=== PATIENT | male | born 1955 | race Caucasian/White ===

== ENCOUNTER → 2017-03-03 | Day surgery (SDC) | payer BC ==
[2017-02-20 13:37] VITALS: Ht 175.3 cm; Wt 111.4 kg
[~2017-03-03] VITALS: Ht 175.3 cm; Wt 111.4 kg
[~2017-03-03] MED LIST: ASPCH81X PO; COEN100C7 PO; HYDR25TA4 PO; LEVO150T PO; LIDOCAINE HCL 2% 2 ML VIAL (20MG/ML) ONE; MIDAZOLAM HCL 1 MG/ML 2ML VIAL ONE; PANT40TA PO; PROPOFOL IV EMULSION 10 MG/ML 20 ML VIAL IV ONE
--- NOTE | 2017-03-03 13:01 | Endo History and Physical ---
History & Physical Date of Service: Mar 03, 2017. Chief Complaint: screening Referring Physician: Dr. Nasir Kirby History of Present Illness For Colonoscopy Past Medical History Arthritis, Pulmonary Emboli, Anxiety, Reflux, Hypertension, Thrombophlebitis, Thyroid Disease Past Surgical History Hx Cardiac Surgery: No Hx Internal Defibrillator: No Hx Pacemaker: No Hx Abdominal Surgery: Yes (UMBILICAL HERNIA) Hx of Implantable Prosthesis: No Hx Post-Op Nausea and Vomiting: No Hx Cancer Surgery: No Hx Thoracic Surgery: No Hx Orthopedic: Yes (RT/LEFT JET) Hx Urinary Tract Surgery: No Family History Colon CA Social History Smoking Status: Never Smoker Hx Substance Use: No Hx Alcohol Use: Yes (OCCASIONALLY) Allergies Coded Allergies: Lisinopril (Verified Allergy, Unknown, Cough, 02/20/17) Current Medications Reported Home Medications Medications Dose Route/Sig Max Daily Dose Days Date Category Coq10 (Coenzyme Q10 (Ubidecarenone)) 100 Mg Cap 1 Cap PO QPM 02/20/17 Reported Hctz (Hydrochlorothiazide) 25 Mg Tab 25 Mg PO QPM 02/20/17 Reported Aspirin Chewable (Aspirin) 81 Mg Chew 81 Mg PO QAM 10/01/14 Reported Synthroid (Levothyroxine Sodium) 150 Mcg Tab 150 Mcg PO QAM 10/01/14 Reported Protonix (Pantoprazole Sodium) 40 Mg Tab 40 Mg PO QPM 10/18/13 Reported Vital Signs Weight (Kilograms): 111.36 Height (Feet): 5 Height (Inches): 9 Date Time Temp Pulse Resp B/P (MAP) Pulse Ox O2 Delivery O2 Flow Rate FiO2 03/03/17 12:26 36.5 88 20 146/74 (98) 96 Room Air Physical Exam General Appearance: WD/WN Respiratory/Chest: Respiratory effort: no dyspnea Cardiovascular: Heart Auscultation: RRR Abdomen: Inspection & Palpation: soft Assessment and Plan For screening colonoscopy
--- NOTE | 2017-03-03 13:25 | Discharge Instructions ---
Endoscopy Patient Instructions Date / Procedure(s) Performed Mar 03, 2017. Colonoscopy Allergy Information Coded Allergies: Lisinopril (Verified Allergy, Unknown, Cough, 02/20/17) Discharge Date / Findings Mar 03, 2017. Hemorrhoids, diverticulosis, lipoma Medication Instructions Stopped Medication(s): has not been taking ASA Restart Stopped Medication(s): resume meds Reported Home Medications Medications Dose Route/Sig Max Daily Dose Days Date Category Coq10 (Coenzyme Q10 (Ubidecarenone)) 100 Mg Cap 1 Cap PO QPM 02/20/17 Reported Hctz (Hydrochlorothiazide) 25 Mg Tab 25 Mg PO QPM 02/20/17 Reported Aspirin Chewable (Aspirin) 81 Mg Chew 81 Mg PO QAM 10/01/14 Reported Synthroid (Levothyroxine Sodium) 150 Mcg Tab 150 Mcg PO QAM 10/01/14 Reported Protonix (Pantoprazole Sodium) 40 Mg Tab 40 Mg PO QPM 10/18/13 Reported Provider Instructions Activity Restrictions - No exercising or heavy lifting for 24 hours. - Do not drink alcohol the day of the procedure. - Do not drive a car or operate machinery until the day after the procedure. - Do not make any important decisions or sign important papers in 24 hours after the procedure. Following Day: - Return to full activity which may include returning to work/school. Diet Start your diet with liquids and light foods (jello, soup, juice, toast). Then eat your usual diet if not nauseated. Treatment For Common After Affects For mild abdominal pain, bloating, or excessive gas: - Rest - Eat lightly - Lie on right side Follow-Up Information Follow-up with Dr. Nasir Kirby as scheduled Anesthesia Information What You Should Know You have had a procedure that required some medicine to reduce anxiety and discomfort. This treatment is called moderate sedation. After receiving the treatment, you may be sleepy, but you will be able to breathe on your own. The effects of the treatment may last for several hours. Follow these instructions along with Activity/Diet recommendations noted above: * Do NOT do anything where dizziness or clumsiness would be dangerous. * Rest quietly at home today, then you can be up and about tomorrow. * Have a responsible person stay with you the rest of today. * You may have had an I.V. today. If so, you may take the dressing off later today. Recommendations Call your doctor if: * Trouble breathing * Continuous vomiting for more than 24 hours * Temperature above 101 degrees * Severe abdominal pain or bloating * Pain not relieved by pain medicine ordered * There is increased drainage or redness from any incision * A large amount of rectal bleeding greater than 2-3 tablespoons. (If you had a polyp/s removed or have hemorrhoids, a small amount of blood - from the rectum is to be expected.) * You have any unanswered questions or concerns. IN THE EVENT OF A SERIOUS EMERGENCY, GO TO THE NEAREST EMERGENCY ROOM Your discharge instructions were prepared by provider Jerald Tong. Patient Instructions Signature Page Benton Chaidez Patient (or Guardian) Signature/Date: I have read and understand the instructions given to me by my caregivers. Caregiver/RN/Doctor Signature/Date: The above-named patient and/or guardian has received patient instructions on this date. + Original Patient Signature Page (only) stays with chart. Please make copy for patient.
--- NOTE | 2017-03-03 13:28 | GI REPORT ---
Procedure Date: 03/03/2017 1:00 PM Procedure: Colonoscopy Indications: Screening for colorectal malignant neoplasm Medicines: Midazolam 2 mg IV, Propofol total dose 210 mg IV, Lidocaine 40 mg IV Complications: No immediate complications. Estimated Blood Loss: Estimated blood loss: none. Procedure: Pre-Anesthesia Assessment: - Prior to the procedure, a History and Physical was performed, and patient medications, allergies and sensitivities were reviewed. The patient's tolerance of previous anesthesia was reviewed. - The risks and benefits of the procedure and the sedation options and risks were discussed with the patient. All questions were answered and informed consent was obtained. After I obtained informed consent, the scope was passed under direct vision. Throughout the procedure, the patient's blood pressure, pulse, and oxygen saturations were monitored continuously. The scope was introduced through the anus and advanced to the terminal ileum. The colonoscopy was performed without difficulty. The patient tolerated the procedure well. The quality of the bowel preparation was good. Findings: Multiple diverticula were found in the sigmoid colon and in the ascending colon. Non-bleeding internal hemorrhoids were found during endoscopy. The hemorrhoids were mild. There was a small lipoma, 12 mm in diameter, in the sigmoid colon. The terminal ileum appeared normal. Impression: - Diverticulosis in the sigmoid colon and in the ascending colon. - Non-bleeding internal hemorrhoids. - Small lipoma in the sigmoid colon. - The examined portion of the ileum was normal. - No specimens collected. Recommendation: - Discharge patient to home (ambulatory). - Continue present medications. - Repeat colonoscopy in 10 years for screening purposes. - Return to primary care physician PRN. Jerald Tong M.D. Jerald Tong MD 03/03/2017 1:28:22 PM This report has been signed electronically. Note Initiated On: 03/03/2017 1:00 PM I attest to the content of the Intraoperative Record and orders documented therein, exceptions below
[2017-03-03 13:58] VITALS: BP 124/73; PULSE 75; O2SAT 96
--- NOTE | 2017-03-03 14:05 | Anesthesiology Progress Note ---
Anesthesia Post Op Note Date & Time Mar 03, 2017 at 14:04 Vital Signs Pain Intensity: 0 Vital Signs Past 12 Hours Date Time Temp Pulse Resp B/P (MAP) Pulse Ox O2 Delivery O2 Flow Rate FiO2 03/03/17 13:58 75 20 124/73 (90) 96 Room Air 03/03/17 13:42 75 20 120/80 (93) 96 Room Air 03/03/17 13:27 88 20 102/55 (71) 96 Room Air 03/03/17 12:26 36.5 88 20 146/74 (98) 96 Room Air Notes Mental Status: alert / awake / arousable, participated in evaluation Pt Amnestic to Procedure: Yes Nausea / Vomiting: adequately controlled Pain: adequately controlled Airway Patency, RR, SpO2: stable & adequate BP & HR: stable & adequate Hydration State: stable & adequate Anesthetic Complications: no major complications apparent
== END | disposition home or self-care (01) ==
LOC: C.GI 11:56
PROVIDERS: ATTEND Internal Medicine Gastroenterology
DX: Z12.11 Encounter for screening for malignant neoplasm of colon (principal); D17.5 Benign lipomatous neoplasm of intra-abdominal organs; K57.30 Diverticulosis of large intestine without perforation or abscess without bleeding; K64.8 Other hemorrhoids; M19.90 Unspecified osteoarthritis, unspecified site; K21.9 Gastro-esophageal reflux disease without esophagitis; I10 Essential (primary) hypertension; Z86.72 Personal history of thrombophlebitis; Z96.641 Presence of right artificial hip joint

== ENCOUNTER → 2017-07-10 | Outpatient (CLI) | payer BC ==
[~2017-07-10] MED LIST changes: -LIDOCAINE HCL 2% 2 ML VIAL (20MG/ML) ONE; -MIDAZOLAM HCL 1 MG/ML 2ML VIAL ONE; -PROPOFOL IV EMULSION 10 MG/ML 20 ML VIAL IV ONE
--- NOTE | 2017-07-10 09:36 | DIAGNOSTIC IMAGING REPORT ---
MRI LEFT KNEE NO CONTRAST CLINICAL HISTORY: Left knee pain COMPARISON STUDY: Conventional radiographic study dated 07-11 FINDINGS: Imaging was performed in the sagittal, coronal, and axial planes. There are no areas of marrow edema to indicate occult fracture or bone bruise. The quadriceps and patellar tendons appear intact. The medial and lateral collateral ligaments appear intact. The posterior cruciate ligament appears intact. There is extensive mucoid degeneration of the anterior cruciate ligament with associated ganglion cyst. The patellar retinacular structures appear intact. There is a small joint effusion. Linear grade 2 signal changes are present within the posterior horn the medial meniscus. No meniscal tears are visualized. There is mild medial joint compartment chondrosis. There is mild chondromalacia patella. IMPRESSION: 1. No evidence of meniscal tear 2. Extensive mucoid degeneration of the anterior cruciate ligament with associated ganglion cysts 3. Mild medial joint compartment chondrosis. Mild chondromalacia patella. Electronically signed by: Cornell Covington M.D. 07/10/2017 9:35 AM Dictated Date/Time: 07/10/2017 9:29 AM
== END | disposition home or self-care (01) ==
LOC: C.MRIBC 08:37
PROVIDERS: ATTEND Orthopaedic Surgery
DX: M23.8X2 Other internal derangements of left knee (principal); M11.262 Other chondrocalcinosis, left knee; M22.42 Chondromalacia patellae, left knee

== ENCOUNTER 2018-01-02 11:21 | Inpatient (IN) | payer BC, OTHER ==
[~2018-01-02] VITALS: Ht 175.3 cm; Wt 123.9 kg
[2018-01-02] MEDS ORDERED: METHYLPREDNISOLONE 125 MG VIAL IV STA (11:38)
[2018-01-02] MEDS ORDERED: PIPERACILLIN/TAZOBACTAM 4.5 GM/100ML D5W IV STA (11:38)
[2018-01-02] MEDS ORDERED: SODIUM CHLORIDE 0.9% 1000ML 500 ML IV ONE (11:38)
[2018-01-02] MEDS ORDERED: ALBUT/IPRATROP 3MG/0.5MG NEB 3 ML VIAL INH STA (11:38)
[2018-01-02] MEDS ORDERED: ACETAMINOPHEN 500 MG TAB PO STA (11:38)
[2018-01-02 11:58] LABS: BASO % 0.3 %; BASO ABS # 0.02 K/uL (0-0.2); EOS % 1.9 %; EOS ABS # 0.15 K/uL (0-0.5); HEMATOCRIT 41.4 % (42-52); HEMOGLOBIN 14.2 g/dL (14.0-18.0); IG# 0.01 K/uL (0.00-0.02); LYMPH ABS # 0.71 K/uL (1.2-3.4); MEAN CELL VOLUME 88.7 fL (80-100); MEAN CORPUSCULAR HEMOGLOBIN 30.4 pg (25-34); MEAN CORPUSCULAR HGB CONC 34.3 g/dl (32-36); MEAN PLATELET VOLUME 10.3 fL (7.4-10.4); MONO % 7.4 %; MONO ABS # 0.58 K/uL (0.11-0.59); NEUT % 81.3 %; NEUT ABS # 6.38 K/uL (1.4-6.5); PLATELET COUNT 195 K/uL (130-400); RED CELL DISTRIBUTION WIDTH CV 13.4 % (11.5-14.5); RED CELL DISTRIBUTION WIDTH SD 43.5 fL (36.4-46.3); WHITE BLOOD COUNT 7.85 K/uL (4.8-10.8)
--- NOTE | 2018-01-02 12:04 | DIAGNOSTIC IMAGING REPORT ---
CHEST ONE VIEW PORTABLE CLINICAL HISTORY: 62 years-old Male presenting with Sepsis. TECHNIQUE: Portable upright AP view of the chest was obtained. COMPARISON: 12/23/2013. FINDINGS: Atherosclerosis of aortic arch. Cardiac silhouette enlarged. Mild pulmonary vascular prominence. Lungs and pleural spaces clear. Degenerative changes of the thoracic spine. Upper abdomen normal. IMPRESSION: 1. Cardiomegaly. No other convincing evidence of acute cardiopulmonary disease. Electronically signed by: Dillan Woodruff M.D. 01/02/2018 12:02 PM Dictated Date/Time: 01/02/2018 12:00 PM
[2018-01-02 12:08] LABS: PTT PATIENT 26.7 SECONDS (21.0-31.0)
[2018-01-02 12:16] LABS: ALBUMIN 3.6 gm/dl (3.4-5.0); CALCIUM 8.5 mg/dl (8.5-10.1); CREATININE 0.99 mg/dl (0.60-1.40); POTASSIUM 3.4 mmol/L (3.5-5.1)
[2018-01-02 12:19] LABS: TOTAL PROTEIN 7.3 gm/dl (6.4-8.2)
[2018-01-02] MEDS ORDERED: MAGNESIUM SULFATE 1GM / D5W 1 GM BAG IV STA (12:22)
[2018-01-02] MEDS ORDERED: OPTIRAY 320 IV PRN (12:30)
--- NOTE | 2018-01-02 13:30 | DIAGNOSTIC IMAGING REPORT ---
(CHEST FOR PE) ANGIO WITH CT DOSE: 606.70 mGy.cm HISTORY: Chest pain dyspnea TECHNIQUE: Multiaxial CT images of the chest were performed following the intravenous administration of contrast to evaluate the pulmonary arteries. Maximal intensity projection images were also obtained. A dose lowering technique was utilized adhering to the principles of ALARA. COMPARISON STUDY: None. FINDINGS: Mild atherosclerotic change thoracic aorta. No evidence for aneurysm or dissection. The pulmonary arterial vasculature enhances appropriately. Lungs are generally clear. Small parenchymal infiltrate left base. IMPRESSION: No evidence for pulmonary embolus. Small parenchymal infiltrate left base The above report was generated using voice recognition software. It may contain grammatical, syntax or spelling errors. Electronically signed by: Antonio Amaya M.D. 01/02/2018 1:29 PM Dictated Date/Time: 01/02/2018 1:24 PM
[2018-01-02 13:33] LABS: INFLUENZA A PCR Neg for Influ A (NEG); INFLUENZA B PCR Neg for Influ B (NEG)
--- NOTE | 2018-01-02 14:06 | EMERGENCY ROOM VISIT NOTE ---
History Report prepared by Pasquale: Felicitas Willams Under the Supervision of: Dr. Bj Gudino M.D. First contact with patient: 11:35 Chief Complaint: ABNORMAL LABS Stated Complaint: LOW BLOOD LEVEL, FEVER History of Present Illness The patient is a 62 year old male who presents to the Emergency Room with complaints of worsening shortness of breath starting this morning. The patient states that he had a severe cold at the beginning of November and eventually went to the doctors for it. He states that they gave him inhalers and he got better. He notes that his cough never went away, but he stopped using the inhaler when he felt better. He notes that his cough is sometimes productive, but is mostly dry. 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 The patient states while working yesterday around noon he started to get a scratchy throat. He reports that after work he went to play golf, but became much worse. He states that he could not stop coughing and that he was extremely short of breath. He reports that last night he took Codeine for his cough and took his inhalers this morning. He reports that the inhaler seemed to help some, but he was still coughing. The patient states that this morning he also felt lethargic and flushed, but thought it was from coughing so much. He reports that he decided to go to the [facility]. He states that his oxygen was low and they gave him a nebulizer. The patient reports that this did not help his oxygen saturation and he was sent to the ED. The patient denies diaphoresis, lightheadedness, knowing he had a fever, and being given anything for his fever thus far. Source of History: patient Onset: this morning Position: other (global) Quality: other (shortness of breath) Timing: worsening Modifying Factors (Relieving): other (inhaler) Associated Symptoms: + fevers, + sorethroat (scratchy), + cough, No diaphoresis Note: The patient complains fo feeling lethargic and flushed. The patient denies being lightheaded. Review of Systems See HPI for pertinent positives & negatives. A total of 10 systems reviewed and were otherwise negative. Past Medical & Surgical Medical Problems: (1) Acute respiratory failure with hypoxia (2) Bilateral hip surgeries (3) Community acquired pneumonia (4) DVT (deep venous thrombosis) (5) GERD (gastroesophageal reflux disease) (6) Glucose intolerance (7) Hyperlipidemia (8) Hypertension (9) Hypothyroidism (10) PE (pulmonary embolism) (11) Umbilical hernia Family History Patient reports no known family medical history. Social History Smoking Status: Never Smoker Marital Status: Housing Status: lives with significant other Occupation Status: employed Current/Historical Medications Scheduled Aspirin (Aspirin Chewable), 81 MG PO QAM Coenzyme Q10 (Ubidecarenone) (Coq10), 1 CAP PO QPM Hydrochlorothiazide (Hctz), 25 MG PO QPM Levothyroxine Sodium (Synthroid), 150 MCG PO QAM Pantoprazole (Protonix), 40 MG PO QPM Allergies Coded Allergies: Lisinopril (Verified Allergy, Unknown, Cough, 02/20/17) Physical Exam Vital Signs Date Time Temp Pulse Resp B/P (MAP) Pulse Ox O2 Delivery O2 Flow Rate FiO2 01/02/18 15:07 102 111/71 92 Nasal Cannula 2.0 01/02/18 13:32 37.4 107 21 120/70 93 Nasal Cannula 2.0 01/02/18 12:51 112 22 89 01/02/18 12:51 112 22 89 01/02/18 12:36 112 20 99 01/02/18 12:36 112 20 99 01/02/18 12:28 113 01/02/18 11:35 95 Nasal Cannula 2.0 01/02/18 11:35 88 Room Air 01/02/18 11:24 38.3 122 18 164/87 88 Room Air Physical Exam GENERAL: Patient is in no acute distress. HEENT: No acute trauma, normocephalic atraumatic, mucous membranes moist, no nasal congestion, no scleral icterus. NECK: No stridor, no adenopathy, no meningismus, trachea is midline. LUNGS: Scattered wheezing. A few crackles at both bases primarily on the right. Equal breath sounds. Breath sounds are somewhat diminished bilaterally. No respiratory distress. HEART: Mildly tachycardic with regular rhythm. No murmurs. ABDOMEN: Soft, nontender, bowel sounds positive, no hernias, no peritonitis. EXTREMITIES: No cyanosis, full range of motion of all the joints without pain or difficulty, no signs for acute trauma. Moderate bilateral pedal edema. NEUROLOGIC: Oriented x 3, no acute motor or sensory deficits, no focal weakness. SKIN: No rash, no jaundice, no diaphoresis. Medical Decision & Procedures ER Provider Diagnostic Interpretation: Radiology results as stated below per my review and radiologist interpretation: CHEST ONE VIEW PORTABLE CLINICAL HISTORY: 62 years-old Male presenting with Sepsis. TECHNIQUE: Portable upright AP view of the chest was obtained. COMPARISON: 12/23/2013. FINDINGS: Atherosclerosis of aortic arch. Cardiac silhouette enlarged. Mild pulmonary vascular prominence. Lungs and pleural spaces clear. Degenerative changes of the thoracic spine. Upper abdomen normal. IMPRESSION: 1. Cardiomegaly. No other convincing evidence of acute cardiopulmonary disease. Electronically signed by: Dillan Woodruff M.D. 01/02/2018 12:02 PM Dictated Date/Time: 01/02/2018 12:00 PM (CHEST FOR PE) ANGIO WITH CT DOSE: 606.70 mGy.cm HISTORY: Chest pain dyspnea TECHNIQUE: Multiaxial CT images of the chest were performed following the intravenous administration of contrast to evaluate the pulmonary arteries. Maximal intensity projection images were also obtained. A dose lowering technique was utilized adhering to the principles of ALARA. COMPARISON STUDY: None. FINDINGS: Mild atherosclerotic change thoracic aorta. No evidence for aneurysm or dissection. The pulmonary arterial vasculature enhances appropriately. Lungs are generally clear. Small parenchymal infiltrate left base. IMPRESSION: No evidence for pulmonary embolus. Small parenchymal infiltrate left base The above report was generated using voice recognition software. It may contain grammatical, syntax or spelling errors. Electronically signed by: Antonio Amaya M.D. 01/02/2018 1:29 PM Dictated Date/Time: 01/02/2018 1:24 PM Laboratory Results 01/02/18 11:39 Red Blood Count 4.67, Mean Corpuscular Volume 88.7, Mean Corpuscular Hemoglobin 30.4, Mean Corpuscular Hemoglobin Concent 34.3, Mean Platelet Volume 10.3, Neutrophils (%) (Auto) 81.3, Lymphocytes (%) (Auto) 9.0, Monocytes (%) (Auto) 7.4, Eosinophils (%) (Auto) 1.9, Basophils (%) (Auto) 0.3, Neutrophils # (Auto) 6.38, Lymphocytes # (Auto) 0.71, Monocytes # (Auto) 0.58, Eosinophils # (Auto) 0.15, Basophils # (Auto) 0.02 01/02/18 11:39 Test 01/02/18 11:39 01/02/18 11:57 01/02/18 12:10 01/02/18 13:00 White Blood Count 7.85 K/uL (4.8-10.8) Red Blood Count 4.67 M/uL (4.7-6.1) Hemoglobin 14.2 g/dL (14.0-18.0) Hematocrit 41.4 % (42-52) Mean Corpuscular Volume 88.7 fL (80-100) Mean Corpuscular Hemoglobin 30.4 pg (25-34) Mean Corpuscular Hemoglobin Concent 34.3 g/dl (32-36) Platelet Count 195 K/uL (130-400) Mean Platelet Volume 10.3 fL (7.4-10.4) Neutrophils (%) (Auto) 81.3 % Lymphocytes (%) (Auto) 9.0 % Monocytes (%) (Auto) 7.4 % Eosinophils (%) (Auto) 1.9 % Basophils (%) (Auto) 0.3 % Neutrophils # (Auto) 6.38 K/uL (1.4-6.5) Lymphocytes # (Auto) 0.71 K/uL (1.2-3.4) Monocytes # (Auto) 0.58 K/uL (0.11-0.59) Eosinophils # (Auto) 0.15 K/uL (0-0.5) Basophils # (Auto) 0.02 K/uL (0-0.2) RDW Standard Deviation 43.5 fL (36.4-46.3) RDW Coefficient of Variation 13.4 % (11.5-14.5) Immature Granulocyte % (Auto) 0.1 % Immature Granulocyte # (Auto) 0.01 K/uL (0.00-0.02) Prothrombin Time 10.9 SECONDS (9.0-12.0) Prothromb Time International Ratio 1.0 (0.9-1.1) Activated Partial Thromboplast Time 26.7 SECONDS (21.0-31.0) Partial Thromboplastin Ratio 1.0 Anion Gap 6.0 mmol/L (3-11) Est Creatinine Clear Calc Drug Dose 102.0 ml/min Estimated GFR () 94.9 Estimated GFR (Non- 81.9 BUN/Creatinine Ratio 14.7 (10-20) Calcium Level 8.5 mg/dl (8.5-10.1) Magnesium Level 1.6 mg/dl (1.8-2.4) Total Bilirubin 0.5 mg/dl (0.2-1) Aspartate Amino Transf (AST/SGOT) 30 U/L (15-37) Alanine Aminotransferase (ALT/SGPT) 46 U/L (12-78) Alkaline Phosphatase 75 U/L (45-117) Total Protein 7.3 gm/dl (6.4-8.2) Albumin 3.6 gm/dl (3.4-5.0) Globulin 3.7 gm/dl (2.5-4.0) Albumin/Globulin Ratio 1.0 (0.9-2) Bedside Lactic Acid Venous 1.61 mmol/L (0.90-1.70) Influenza Type A (RT-PCR) Neg for Influ A (NEG) Influenza Type B (RT-PCR) Neg for Influ B (NEG) Urine Color YELLOW Urine Appearance CLEAR (CLEAR) Urine pH >= 9.0 (4.5-7.5) Urine Specific [place] 1.022 (1.000-1.030) Urine Protein NEG (NEG) Urine Glucose (UA) NEG (NEG) Urine Ketones NEG (NEG) Urine Occult Blood NEG (NEG) Urine Nitrite NEG (NEG) Urine Bilirubin NEG (NEG) Urine Urobilinogen NEG (NEG) Urine Leukocyte Esterase NEG (NEG) Urine WBC (Auto) 0 /hpf (0-5) Urine RBC (Auto) 0-4 /hpf (0-4) Urine Hyaline Casts (Auto) 0 /lpf (0-5) Urine Epithelial Cells (Auto) 0-5 /lpf (0-5) Urine Bacteria (Auto) NEG (NEG) Laboratory results reviewed by me. Medications Administered Medications (Trade) Dose Ordered Sig/Tiffany Route Start Time Stop Time Status Last Admin Dose Admin Sodium Chloride 500 ml @ 999 mls/hr Q31M ONCE IV 01/02/18 11:38 01/02/18 12:08 DC 01/02/18 11:54 999 MLS/HR Piperacillin Sod/ Tazobactam Sod (Zosyn Iv) 4.5 gm ONE STAT IV 01/02/18 11:38 01/02/18 11:41 DC 01/02/18 12:05 4.5 GM Acetaminophen (Tylenol Tab) 1,000 mg NOW STAT PO 01/02/18 11:38 01/02/18 11:41 DC 01/02/18 12:03 1,000 MG Albuterol/ Ipratropium (Duoneb) 3 ml NOW STAT INH 01/02/18 11:38 01/02/18 11:41 DC 01/02/18 12:02 3 ML Methylprednisolone Sodium Succinate (Solu-Medrol IV) 40 mg STK-MED ONCE .ROUTE 01/02/18 11:55 01/02/18 11:56 DC 01/02/18 12:02 80 MG Magnesium Sulfate (Magnesium Sulfate 1gm / D5W) 2 gm NOW STAT IV 01/02/18 12:22 01/02/18 12:23 DC 01/02/18 13:27 2 GM Guaifenesin (Mucinex Contr Rel Tab) 1,200 mg 1424 ONCE PO 01/02/18 14:24 01/02/18 14:42 DC 01/02/18 15:05 1,200 MG ECG Per My Interpretation Indication: SOB/dyspnea Rate (beats per minute): 114 Rhythm: sinus tachycardia Findings: no ectopy, other (no ST elevation, no PVCs) ED Course 1136: The patient was evaluated in room C9. A complete history and physical exam was performed. 1138: Ordered Solu-Medrol IV 80 mg IV, Duoneb 3 ml INH, Tylenol Tab 1000 mg PO, Zosyn Iv 4.5 gm IV, NSS 500 ml @ 999 mls/hr IV. 1222: Ordered Magnesium Sulfate 2 gm IV. 1225: I updated the patient that he is going for a CT of his chest. 1333:I reevaluated the patient and he is doing well. I updated him on his test results. 1349: I discussed the patient's case with Dr. Dai ESCOBAR Hospitalist. The patient will be evaluated for further management. Medical Decision Differential diagnoses include pneumonia, bronchitis, CHF, pneumothorax, anemia , influenza, [place], sepsis, PE. There is no leukocytosis or concerning anemia. Magnesium was low. No kidney failure or hepatitis. There is no coagulopathy. EKG shows a sinus tachycardia , no acute ischemia. Cardiac enzyme testing 1 is not consistent with acute cardiac injury. Chest x-ray does not show obvious pneumonia, no pneumothorax or mediastinal widening. Blood cultures are pending. Influenza testing was negative. Chest CT does not show PE, a left sided lower lung pneumonia was seen. Patient received a dose of IV Zosyn as antibiotic coverage. He received oral Tylenol for his fever. He received IV saline, IV Solu-Medrol. He was given IV magnesium. The patient presents with shortness of breath and fever. He was hypoxic. He is doing better with treatment and with supplemental O2. He will require a hospital stay for further care. I did speak with the patient and case management. The on-call hospitalist was counseled. I do believe the pneumonia has caused all of his symptoms. Medication Reconcilliation Current Medication List: was personally reviewed by me Blood Pressure Screening Patient's blood pressure: Elevated blood pressure Will be further monitored by the hospitalist. Consults Time Called: 1343 Consulting Physician: Dr. Dai ESCOBAR Hospitalist Returned Call: [phone] I discussed the patient's case with Dr. Dai ESCOBAR Hospitalist. The patient will be evaluated for further management. Impression Primary Impression: Pneumonia Additional Impressions: Hypoxia Failure of outpatient treatment Scribe Attestation The scribe's documentation has been prepared under my direction and personally reviewed by me in its entirety. I confirm that the note above accurately reflects all work, treatment, procedures, and medical decision making performed by me. Departure Information Dispostion Being Evaluated By Hospitalist Referrals Nasir Maldonado M.D. (PCP) Patient Instructions [facility] Problem Qualifiers
[2018-01-02] MEDS ORDERED: GUAIFENESIN 600 MG TABCR PO ONE (14:24)
[2018-01-02] MEDS ORDERED: ALUMINUM/MAGNESIUM/SIMETH (MAALOX MAX) 30 ML UDC PO PRN (14:30)
[2018-01-02] MEDS ORDERED: ONDANSETRON INJ 2 MG/ML 2 ML VIAL IV PRN (14:30)
[2018-01-02] MEDS ORDERED: HYDROCODONE/HOMATROPINE SYRUP 5MG/1.5MG 5ML UDP PO PRN (14:30)
[2018-01-02] MEDS ORDERED: ACETAMINOPHEN 325 MG TAB PO PRN (14:30)
[2018-01-02] MEDS ORDERED: MAGNESIUM HYDROXIDE SUSP 30 ML UDC PO PRN (14:30)
[2018-01-02] MEDS ORDERED: POLYETHYLENE (MIRALAX) 17 GM PACK PO PRN (14:30)
[2018-01-02] MEDS ORDERED: ALBUT/IPRATROP 3MG/0.5MG NEB 3 ML VIAL INH PRN (14:45)
--- NOTE | 2018-01-02 14:48 | History and Physical ---
History & Physical Date & Time of Service: January 02, 2018 at 14:34 Chief Complaint: Low Blood Level, Fever Primary Care Physician: Nasir Maldonado M.D. History of Present Illness Source: patient Mr. Chaidez is a 62 y/o male with PMHx of HTN, Hypothyroidism, GERD, and Provoked PE/DVT (2012) who presents to the ED from his PCP due to hypoxia and SOB. Patient states he has had a cough that has wax and waned in intensity for approx. 6 weeks now. He states he initially had more of a productive cough but now it is mostly dry. He was ultimately prescribed inhalers that did seem to help his symptoms but did not resolve is cough. 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 Know known lung disease or allergies. He states all of his co-workers are sick but none seem to have this long like him. He did have a scratching throat yesterday but no direct sore throat. Today he felt fatigued and warm like he was running a fever. He was seen at the [facility] today and was told his pulse ox was low and received a nebulizer. He states the nebulizer helped his cough but did not improve his oxygenation and was sent to the ED. With treatment in the ED, patient reports his cough is improving but still satting in the high 80s with 2 L NC. Past Medical/Surgical History 1. HTN 2. Provoked DVT/PE (2012) - Traumatic Injury to Legs 3. Hypothyroidism 4. GERD 5. S/P B/L Hip Arthroplasty 6. S/P Inguinal Hernia Repair Family History Patient reports no known family medical history. Social History Smoking Status: Never Smoker Smokeless Tobacco Use: No Alcohol Use: socially Drug Use: none Marital Status: Occupational Status: employed Immunizations History of Influenza Vaccine: No History of Tetanus Vaccine?: No History of Pneumococcal: No History of Hepatitis B Vaccine: No Allergies Coded Allergies: Lisinopril (Verified Allergy, Unknown, Cough, 02/20/17) Home Medications Scheduled Aspirin (Aspirin Chewable), 81 MG PO QAM Coenzyme Q10 (Ubidecarenone) (Coq10), 1 CAP PO QPM Hydrochlorothiazide (Hctz), 25 MG PO QPM Levothyroxine Sodium (Synthroid), 150 MCG PO QAM Pantoprazole (Protonix), 40 MG PO QPM Review of Systems Constitutional: + fever, + fatigue, No chills ENT: + nasal symptoms, No sore throat Respiratory: + cough, + wheezing, + shortness of breath, No sputum Cardiovascular: No chest pain Abdomen: No pain, No nausea, No vomiting, No diarrhea, No constipation Musculoskeletal: + swelling (chronic b/l lower extremities - baseline), No calf pain Genitourinary - Male: No dysuria Hematologic / Lymphatic: No abnormal bleeding/bruising Integumentary: No rash Allergic / Immunologic: No environmental allergies, No seasonal allergies Physical Exam Vital Signs Date Time Temp Pulse Resp B/P (MAP) Pulse Ox O2 Delivery O2 Flow Rate FiO2 01/02/18 13:32 37.4 107 21 120/70 93 Nasal Cannula 2.0 01/02/18 12:51 112 22 89 01/02/18 12:51 112 22 89 01/02/18 12:36 112 20 99 01/02/18 12:36 112 20 99 01/02/18 12:28 113 01/02/18 11:35 95 Nasal Cannula 2.0 01/02/18 11:35 88 Room Air 01/02/18 11:24 38.3 122 18 164/87 88 Room Air General Appearance: WD/WN, no apparent distress Head: normocephalic, atraumatic Eyes: sclerae normal ENT: hearing grossly normal, pharynx normal Neck: supple, no JVD, trachea midline Respiratory/Chest: no respiratory distress, no accessory muscle use, + decreased breath sounds (bases b/l with minimal air flow), + wheezing (upper lung monsalve b/l) Cardiovascular: regular rate, rhythm, no gallop, no murmur Abdomen/GI: normal bowel sounds, non tender, soft Back: normal inspection Extremities/Musculoskelatal: + swelling (trace pitting edema b/l lower extremities) Neurologic/Psych: alert, oriented x 3 Skin: normal color, warm/dry Diagnostics Laboratory Results Results Past 24 Hours Test 01/02/18 11:39 01/02/18 11:57 01/02/18 12:10 01/02/18 13:00 Range/Units White Blood Count 7.85 4.8-10.8 K/uL Red Blood Count 4.67 4.7-6.1 M/uL Hemoglobin 14.2 14.0-18.0 g/dL Hematocrit 41.4 42-52 % Mean Corpuscular Volume 88.7 80-100 fL Mean Corpuscular Hemoglobin 30.4 25-34 pg Mean Corpuscular Hemoglobin Concent 34.3 32-36 g/dl Platelet Count 195 130-400 K/uL Mean Platelet Volume 10.3 7.4-10.4 fL Neutrophils (%) (Auto) 81.3 % Lymphocytes (%) (Auto) 9.0 % Monocytes (%) (Auto) 7.4 % Eosinophils (%) (Auto) 1.9 % Basophils (%) (Auto) 0.3 % Neutrophils # (Auto) 6.38 1.4-6.5 K/uL Lymphocytes # (Auto) 0.71 1.2-3.4 K/uL Monocytes # (Auto) 0.58 0.11-0.59 K/uL Eosinophils # (Auto) 0.15 0-0.5 K/uL Basophils # (Auto) 0.02 0-0.2 K/uL RDW Standard Deviation 43.5 36.4-46.3 fL RDW Coefficient of Variation 13.4 11.5-14.5 % Immature Granulocyte % (Auto) 0.1 % Immature Granulocyte # (Auto) 0.01 0.00-0.02 K/uL Prothrombin Time 10.9 9.0-12.0 SECONDS Prothromb Time International Ratio 1.0 0.9-1.1 Activated Partial Thromboplast Time 26.7 21.0-31.0 SECONDS Partial Thromboplastin Ratio 1.0 Sodium Level 140 136-145 mmol/L Potassium Level 3.4 3.5-5.1 mmol/L Chloride Level 105 98-107 mmol/L Carbon Dioxide Level 29 21-32 mmol/L Anion Gap 6.0 3-11 mmol/L Blood Urea Nitrogen 15 7-18 mg/dl Creatinine 0.99 0.60-1.40 mg/dl Est Creatinine Clear Calc Drug Dose 102.0 ml/min Estimated GFR () 94.9 Estimated GFR (Non- 81.9 BUN/Creatinine Ratio 14.7 10-20 Random Glucose 112 70-99 mg/dl Calcium Level 8.5 8.5-10.1 mg/dl Magnesium Level 1.6 1.8-2.4 mg/dl Total Bilirubin 0.5 0.2-1 mg/dl Aspartate Amino Transf (AST/SGOT) 30 15-37 U/L Alanine Aminotransferase (ALT/SGPT) 46 12-78 U/L Alkaline Phosphatase 75 45-117 U/L Total Protein 7.3 6.4-8.2 gm/dl Albumin 3.6 3.4-5.0 gm/dl Globulin 3.7 2.5-4.0 gm/dl Albumin/Globulin Ratio 1.0 0.9-2 Bedside Lactic Acid Venous 1.61 0.90-1.70 mmol/L Influenza Type A (RT-PCR) Neg for Influ A NEG Influenza Type B (RT-PCR) Neg for Influ B NEG Urine Color YELLOW Urine Appearance CLEAR CLEAR Urine pH >= 9.0 4.5-7.5 Urine Specific [place] 1.022 1.000-1.030 Urine Protein NEG NEG Urine Glucose (UA) NEG NEG Urine Ketones NEG NEG Urine Occult Blood NEG NEG Urine Nitrite NEG NEG Urine Bilirubin NEG NEG Urine Urobilinogen NEG NEG Urine Leukocyte Esterase NEG NEG Urine WBC (Auto) 0 0-5 /hpf Urine RBC (Auto) 0-4 0-4 /hpf Urine Hyaline Casts (Auto) 0 0-5 /lpf Urine Epithelial Cells (Auto) 0-5 0-5 /lpf Urine Bacteria (Auto) NEG NEG Microbiology Results 01/02/18 Blood Culture, Received Pending 01/02/18 Blood Culture, Received Pending Diagnostic Radiology (CHEST FOR PE) ANGIO WITH FINDINGS: Mild atherosclerotic change thoracic aorta. No evidence for aneurysm or dissection. The pulmonary arterial vasculature enhances appropriately. Lungs are generally clear. Small parenchymal infiltrate left base. IMPRESSION: No evidence for pulmonary embolus. Small parenchymal infiltrate left base EKG Sinus tachycardia Otherwise normal ECG When compared with ECG of 02-OCT-2014 07:59, Vent. rate has increased BY 39 BPM Impression Assessment and Plan Mr. Chaidez is a 62 y/o male with PMHx of HTN, Hypothyroidism, GERD, and Provoked PE/DVT (2012) who presents to the ED from his PCP due to hypoxia and SOB. Patient states he has had a cough that has wax and waned in intensity for approx. 6 weeks now Acute Hypoxic Respiratory Failure 2/2 Community-Acquired Pneumonia with Possible Bronchitis: - No underlying pulmonary conditions to his knowledge; L base infiltrate on CT - no evidence of PE - Levaquin 750 mg IV daily - Methylprednisolone 40 mg IV BID - Duonebs; Mucinex BID; Hycodan PRN; Wean O2 as tolerated HTN: - HCTZ 25 mg daily Hypothyroidism: - Synthroid 150 mcg daily GERD: - Protonix 40 mg daily DVT Prophylaxis: Lovenox Disposition: No home needs anticipated Resident Physician Supervision Note: I was present with Rosalia GUAN during the history and exam. I discussed the case with the PA and agree with the findings and plan as documented in the note. Any exceptions or clarifications are listed here: 62 y/o M Hx HTN, hypothyroidism, GERD, provoked PE/DVT (2012) - presents with a few weeks of coughing and progressive SOB. He became dyspneic while playing golf. He has had respiratory symptoms for a few weeks which were treated as viral. The pt was hypoxic in the mid 80s on arrival to the ER. A CT chest was obtained and revealed LLL infiltrates. He is admitted with hypoxia and PNM therefore. OE AAO x 3 S1,2 R Cannot appreciate crackles or wheezing NT, ND No CCE P: Abx, 02, nebs - recheck walking oximetry daily to allow for DC when possible Cont Synthroid Cont HCTZ as prescribed Documented By: Lloyd Acevedo Resuscitation Status VTE Prophylaxis Will order VTE Prophylaxis: Yes Social Service Consult None Apply
[2018-01-02] MEDS: ALBUT/IPRATROP 3MG/0.5MG NEB 3 ML VIAL INH SCH ×2 (17:38→19:44)
[2018-01-02 18:10] VITALS: O2SAT 92; Ht 175.3 cm; Wt 123.9 kg
[2018-01-02 18:11] VITALS: BP 128/62; PULSE 103; TEMP 36.7; O2SAT 92
[2018-01-02 18:30] VITALS: O2SAT 92
[2018-01-02] MEDS: LEVOFLOXACIN / D5W 750 MG in PREMIXED IN D5W 150 ML IV SCH (18:42)
[2018-01-02 19:45] VITALS: PULSE 102; O2SAT 93
[2018-01-02] MEDS: ENOXAPARIN 40 MG/0.4 ML SYR SQ SCH (20:28)
[2018-01-02] MEDS: METHYLPREDNISOLONE IV 40 MG in SYRINGE 0 ML IV SCH (20:29)
[2018-01-02] MEDS: HYDROCHLOROTHIAZIDE 25 MG TAB PO SCH (20:29)
[2018-01-02] MEDS: PANTOprazole SOD 40 MG TAB PO SCH (20:29)
[2018-01-03] VITALS (9 sets, daily range): BP systolic 115–151; BP diastolic 65–83; PULSE 81–129; TEMP 36.7–36.8; O2SAT 92–95
[2018-01-03] MEDS: LEVOTHYROXINE 150 MCG TAB PO SCH (06:51)
[2018-01-03] MEDS: ALBUT/IPRATROP 3MG/0.5MG NEB 3 ML VIAL INH SCH ×4 (07:05→19:18)
[2018-01-03 07:30] LABS: HEMATOCRIT 41.4 % (42-52); HEMOGLOBIN 13.8 g/dL (14.0-18.0); MEAN CORPUSCULAR HEMOGLOBIN 29.7 pg (25-34); MEAN CORPUSCULAR HGB CONC 33.3 g/dl (32-36); MEAN PLATELET VOLUME 10.2 fL (7.4-10.4); PLATELET COUNT 183 K/uL (130-400); RED CELL DISTRIBUTION WIDTH CV 13.7 % (11.5-14.5); RED CELL DISTRIBUTION WIDTH SD 44.8 fL (36.4-46.3); WHITE BLOOD COUNT 12.39 K/uL (4.8-10.8)
[2018-01-03 07:53] LABS: CALCIUM 8.6 mg/dl (8.5-10.1); CREATININE 1.06 mg/dl (0.60-1.40); POTASSIUM 3.9 mmol/L (3.5-5.1)
[2018-01-03] MEDS: GUAIFENESIN 600 MG TABCR PO SCH ×2 (08:46→21:10)
[2018-01-03] MEDS: METHYLPREDNISOLONE IV 40 MG in SYRINGE 0 ML IV SCH ×2 (08:46→17:34)
[2018-01-03] MEDS: ASPIRIN 81 MG CHEW PO SCH (08:46)
[2018-01-03] MEDS ORDERED: GUAIFENESIN/CODEINE 100MG/10MG 5ML UDC PO PRN (15:00)
[2018-01-03] MEDS ORDERED: BENZONATATE 100MG CAP PO PRN (15:00)
[2018-01-03] MEDS: LEVOFLOXACIN / D5W 750 MG in PREMIXED IN D5W 150 ML IV SCH (17:34)
[2018-01-03] MEDS: PANTOprazole SOD 40 MG TAB PO SCH (21:09)
[2018-01-03] MEDS: HYDROCHLOROTHIAZIDE 25 MG TAB PO SCH (21:10)
[2018-01-03] MEDS: ENOXAPARIN 40 MG/0.4 ML SYR SQ SCH (21:10)
[2018-01-04] VITALS: O2SAT 94
[2018-01-04 00:26] VITALS: BP 163/98; PULSE 96; TEMP 36.7; O2SAT 93
[2018-01-04] MEDS: METHYLPREDNISOLONE IV 40 MG in SYRINGE 0 ML IV SCH ×2 (02:04→09:39)
[2018-01-04] MEDS: LEVOTHYROXINE 150 MCG TAB PO SCH (06:53)
[2018-01-04 07:02] LABS: HEMATOCRIT 42.8 % (42-52); HEMOGLOBIN 14.3 g/dL (14.0-18.0); MEAN CORPUSCULAR HEMOGLOBIN 29.7 pg (25-34); MEAN CORPUSCULAR HGB CONC 33.4 g/dl (32-36); MEAN PLATELET VOLUME 10.2 fL (7.4-10.4); PLATELET COUNT 224 K/uL (130-400); RED CELL DISTRIBUTION WIDTH SD 45.8 fL (36.4-46.3); WHITE BLOOD COUNT 14.85 K/uL (4.8-10.8)
[2018-01-04] MEDS: ALBUT/IPRATROP 3MG/0.5MG NEB 3 ML VIAL INH SCH (07:04)
[2018-01-04 07:06] VITALS: PULSE 89; O2SAT 93
[2018-01-04 07:16] VITALS: BP 178/81; PULSE 89; TEMP 36.5; O2SAT 93
[2018-01-04 07:22] LABS: CALCIUM 8.8 mg/dl (8.5-10.1); CREATININE 1.09 mg/dl (0.60-1.40); POTASSIUM 4.2 mmol/L (3.5-5.1)
--- NOTE | 2018-01-04 07:40 | Progress Note ---
Subjective Date of Service: January 03, 2018. Subjective Pt evaluation today including: conversation w/ patient, physical exam, chart review, lab review, review of studies (ct chest, cxr), review of inpatient medication list Pain: none PO Intake: normal, eating fine Voiding: no voiding problems still with considerable cough, congestion, wheezing, and mild dyspnea on exertion although he does feel a little better today no further fever/chills denies prior h/o chronic lung disease, asthma, or tobacco usage no recent travel Problem List Medical Problems: (1) Failure of outpatient treatment Status: Acute (2) Hypoxia Status: Acute (3) Pneumonia Status: Acute Review of Systems Constitutional: + fatigue, No fever, No chills Respiratory: + cough, + sputum, + wheezing, + shortness of breath, + dyspnea on exertion Cardiac: No chest pain, No orthopnea Abdomen: No pain Objective Vital Signs Date Time Temp Pulse Resp B/P (MAP) Pulse Ox O2 Delivery O2 Flow Rate FiO2 01/03/18 19:18 120 18 94 Room Air 01/03/18 16:01 36.8 129 22 148/74 (98) 93 Room Air 01/03/18 16:00 Room Air 01/03/18 14:51 118 18 94 Nasal Cannula 1.0 01/03/18 11:12 83 18 92 Nasal Cannula 1.0 01/03/18 08:10 93 Nasal Cannula 1.0 01/03/18 07:22 36.7 81 16 115/65 (82) 93 Nasal Cannula 2.0 01/03/18 07:07 83 18 94 Nasal Cannula 2.0 01/03/18 00:45 36.7 100 20 121/72 (88) 95 2.0 01/03/18 00:00 Nasal Cannula 2.0 Physical Exam General Appearance: no apparent distress, + obese ENT: pharynx normal Neck: no JVD Respiratory/Chest: no respiratory distress, no accessory muscle use, + crackles (left base), + wheezing (extensive) Cardiovascular: no gallop, + tachycardia, + systolic murmur (2/6 AYESHA LSB) Abdomen: normal bowel sounds, non tender, soft, no organomegaly Extremities: no pedal edema Neurologic/Psychiatric: alert, oriented x 3 Laboratory Results Last 24 Hours Test 01/03/18 07:22 White Blood Count 12.39 K/uL Red Blood Count 4.65 M/uL Hemoglobin 13.8 g/dL Hematocrit 41.4 % Mean Corpuscular Volume 89.0 fL Mean Corpuscular Hemoglobin 29.7 pg Mean Corpuscular Hemoglobin Concent 33.3 g/dl RDW Standard Deviation 44.8 fL RDW Coefficient of Variation 13.7 % Platelet Count 183 K/uL Mean Platelet Volume 10.2 fL Sodium Level 137 mmol/L Potassium Level 3.9 mmol/L Chloride Level 104 mmol/L Carbon Dioxide Level 26 mmol/L Anion Gap 7.0 mmol/L Blood Urea Nitrogen 18 mg/dl Creatinine 1.06 mg/dl Est Creatinine Clear Calc Drug Dose 95.2 ml/min Estimated GFR () 87.4 Estimated GFR (Non- 75.4 BUN/Creatinine Ratio 16.9 Random Glucose 148 mg/dl Calcium Level 8.6 mg/dl Magnesium Level 2.3 mg/dl Assessment and Plan 62yo male - 1. acute hypoxic resp failure 2nd to acute bronchitis + LLL pneumonia - slowly progressing. 2. LLL community-acquired pneumonia - levaquin; can convert to oral tomorrow. Day #2 of abx. 3. acute bronchitis - no significant improvement in wheezing, dyspnea, etc. Increase steroids to q8h intervals. Add incentive spirometry. Cont mucolytics, nebs, pulmonary toilet. 4. DVT proph - lovenox 40mg daily. 5. HTN - uncontrolled, likely due to steroids. If still high in am then adjust BP meds. 6. morbid obesity with BMI of 40 7. hypothyroidism - cont synthroid; patient is a [facility] patient and I don' t have access to outpatient records and thus his TSH. Will inquire w patient about this. Continued [facility] stay due to: multiple IV medications needed Discharge planning: home
[2018-01-04 07:52] VITALS: BP 152/92
[2018-01-04] MEDS: ASPIRIN 81 MG CHEW PO SCH (08:29)
[2018-01-04] MEDS: GUAIFENESIN 600 MG TABCR PO SCH (08:29)
[2018-01-04] MEDS: LACTOBACILLUS ACIDOPHILUS (FLORANEX) TAB PO SCH ×2 (08:29→10:43)
[2018-01-04] MEDS ORDERED: METOPROLOL TARTRATE 25 MG TAB PO ONE (08:45)
[2018-01-04] MEDS ORDERED: LVQ750 PO (09:51)
[2018-01-04] MEDS ORDERED: LCTX PO (09:51)
[2018-01-04] MEDS ORDERED: BENZ100C7 PO (09:51)
[2018-01-04] MEDS ORDERED: GFNSR600 PO (09:51)
[2018-01-04] MEDS ORDERED: LPR25 PO (09:51)
[2018-01-04] MEDS ORDERED: PRED10TA PO (09:51)
[2018-01-04] MEDS ORDERED: IPRA1AER2 INH (09:51)
[2018-01-04 09:54] VITALS: BP 152/92; PULSE 89; TEMP 36.5; O2SAT 93
[2018-01-04] MEDS ORDERED: POTA10CA28 PO (09:54)
--- NOTE | 2018-01-04 10:12 | Discharge Instructions ---
Discharge Instructions Date of Service January 04, 2018. Admission Reason for Admission: Left-sided pneumonia along with Acute Bronchitis Discharge Discharge Diagnosis / Problem: Bronchitis & Pneumonia - Both Improving Discharge Goals Goal(s): Improve disease control, Learn about illness, Diagnostic testing, Therapeutic intervention Activity Recommendations Activity Limitations: as noted below For the next 2-3 days (could be 3-4 days) would recommend that you "take it easy " - * avoid heavy exertional activities such as strenuous yard work, heavy indoor chores, etc * avoid going to the gym for a few days * light activities and light walks are fine * as you feel better you can gradually increase your activity level * you will have to use your best judgement when it comes to returning to work; when you can perform all of your normal job duties without fatigue, shortness of breath, etc you may return to work . Instructions / Follow-Up Instructions / Follow-Up From Dr. Briones - You were treated for a combination of bronchitis and left lower lobe pneumonia. You improved nicely with antibiotics, steroids (prednisone), nebulizer treatments, and cough suppressants. Your blood cultures were negative while here (that is, there was no evidence of infection in your blood stream). Please do the following - 1. Pneumonia - * take levaquin (levofloxacin) 750mg once daily for 4 days starting TOMORROW, * may take [id number] mucinex up to 1200mg twice a day as desired/needed for cough/mucous production * take combivent inhaler (we provided this to you at discharge) 1 puff 4 times a day for the next week or so * I would discontinue the inhaler that was given to you prior to admission * take lactinex (probiotics) three times a day for 1 week; hopefully this will prevent diarrhea from the levaquin antibiotic * I would recommend that you have a repeat chest x-ray in 1 month to ensure that all of the pneumonia is fully resolved 2. Bronchitis - this is inflammation and irritation of the bronchial tubes from infection. * take a prednisone taper starting TOMORROW, 01/05/18 * you will start with 5 tabs and taper down to 1 tab over several days; instructions will be on prescription bottle * take mucinex as above * take combivent inhaler as above * use your incentive spirometer frequently over the next few days * to suppress your cough you may continue on the cough syrup that was given to you prior to your hospital stay OR I faxed to your pharmacy a prescription for "tessalon pearles" * the tessalon can be used up to 3 times a day as desired/needed for cough 4. High blood pressure - * your blood pressures were high from the time of admission until the time of discharge * we have started you on metoprolol 25mg twice a day for your blood pressure * take your first dose TONIGHT * continue on your HCTZ (hydrochlorothiazide) once daily as previous 5. Low potassium - * your HCTZ diuretic water pill causes low potassium * please take a potassium supplement every day; this was faxed to your pharmacy for you * I would recommend that you take the potassium every day as long as you are on the HCTZ 6. Follow-up - see Dr. Maldonado or one of his associates within 3 days for a recheck. 7. Return to [facility] if - * you are experiencing worsening shortness of breath, chest pain, or chest tightness * you are having recurrent fevers over 100.5 degrees * you develop severe diarrhea * any other concerns Current Hospital Diet Patient's current hospital diet: Regular Diet Discharge Diet Recommended Diet: Regular Diet Procedures Procedures Performed: CAT scan of the lungs - NO evidence of blood clots. However, there was a left lower lobe pneumonia. Pending Studies Studies pending at discharge: no Medical Emergencies . Who to Call and When: Medical Emergencies: If at any time you feel your situation is an emergency, please call 911 immediately. . Non-Emergent Contact Non-Emergency issues call your: Primary Care Provider Call Non-Emergent contact if: temperature is above 100.5, you have any medication questions . . "Provider Documentation" section prepared by Chente Briones. .
[2018-01-04] MEDS ORDERED: LEVOFLOXACIN 750 MG TAB PO SCH (11:00)
[2018-01-04] MEDS ORDERED: IPRATROPIUM BROMIDE/ALBUTEROL respimat INH INH SCH (12:00)
--- NOTE | 2018-01-04 17:07 | Discharge Summary ---
Discharge Summary Date of Service January 04, 2018. Discharge Summary Admission Date: January 02, 2018 at 14:33 Discharge Date: January 04, 2018 Discharge Disposition: Home Principal Diagnosis: LLL community-acquired pneumonia + acute bronchitis Problems/Secondary Diagnoses: 1. acute hypoxic respiratory failure 2nd to LLL pneumonia/acute bronchitis - former resolved 2. uncontrolled HTN but improving 3. morbid obesity w/ BMI 40 4. hypothyroidism 5. hypokalemia - resolved 6. GERD 7. h/o DVT/PE 2012 Immunizations: Have You Had Influenza Vaccine: No History of Tetanus Vaccine?: No History of Pneumococcal: No History of Hepatitis B Vaccine: No Procedures: CT chest, PE protocol - IMPRESSION: No evidence for pulmonary embolus. Small parenchymal infiltrate left base. Medication Reconciliation New Medications: Ipratropium-Albuterol (Combivent Respimat) 1 Aer Aer 1 PUFFS INH QID, #1 INH 0 Refills Potassium Chloride (Micro-K Ext Rel) 10 Meq Capcr 10 MEQ PO DAILY, #30 CAP 5 Refills Prednisone (Prednisone) 10 Mg Tab 10 MG PO DIRECTED, #30 TAB 0 Refills start 01/05: take 5 tabs days 1/2, 4 tabs days 3/4, 3 tabs days 5/6, 2 tabs days 7/8, 1 tab days /. Take w food. Benzonatate (Benzonatate) 100 Mg Cap 100 MG PO Q8H PRN for Cough, #30 CAP 0 Refills Guaifenesin Ext Rel (Mucinex Ext Rel) 600 Mg Tabcr 1200 MG PO Q12, #30 TABS 0 Refills purchase [id number] Lactobacillus Acidophilus (Floranex) 1 Tab Tab 4 TAB PO TIDM for 7 Days, #84 TAB 0 Refills Levofloxacin (Levofloxacin) 750 Mg Tab 750 MG PO DAILY for 4 Days, #4 TAB 0 Refills start 01/05/18 Metoprolol Tartrate (Lopressor) 25 Mg Tab 25 MG PO BID, #60 TAB 1 Refill for high blood pressure Continued Medications: Aspirin (Aspirin Chewable) 81 Mg Chew 81 MG PO QAM, TAB Coenzyme Q10 (Ubidecarenone) (Coq10) 100 Mg Cap 1 CAP PO QPM Hydrochlorothiazide (Hctz) 25 Mg Tab 25 MG PO QPM, TAB Levothyroxine Sodium (Synthroid) 150 Mcg Tab 150 MCG PO QAM, TAB Pantoprazole (Protonix) 40 Mg Tab 40 MG PO QPM, TAB Referrals At Discharge Follow up Referrals: Family Practice Referral - Within 1 Week with Nasir Maldonado M.D. Discharge Exam Physical Exam: General Appearance: no apparent distress, + obese ENT: pharynx normal Neck: no JVD Respiratory/Chest: no respiratory distress, no accessory muscle use, + crackles (left base - mild), + wheezing (mild, end-exp), + pertinent finding ( good airation ) Cardiovascular: regular rate, rhythm, no gallop, + systolic murmur (1-2/6 AYESHA LLSB) Abdomen / GI: normal bowel sounds, non tender, soft, no organomegaly Extremities: no pedal edema Neurologic/Psychiatric: alert, oriented x 3 Skin: no rash Hospital Course HISTORY OF PRESENT ILLNESS: Mr. Chaidez is a 62 y/o male with PMHx of HTN, Hypothyroidism, GERD, and Provoked PE/DVT (2012) who presents to the ED from his PCP due to hypoxia and SOB. Patient states he has had a cough that has wax and waned in intensity for approx. 6 weeks now. He states he initially had more of a productive cough but now it is mostly dry. He was ultimately prescribed inhalers that did seem to help his symptoms but did not resolve is cough. 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 Know known lung disease or allergies. He states all of his co-workers are sick but none seem to have this long like him. He did have a scratching throat yesterday but no direct sore throat. Today he felt fatigued and warm like he was running a fever. He was seen at the [place] [facility] today and was told his pulse ox was low and received a nebulizer. He states the nebulizer helped his cough but did not improve his oxygenation and was sent to the ED. With treatment in the ED, patient reports his cough is improving but still satting in the high 80s with 2 L NC. HOSPITAL COURSE: The patient's acute hypoxic respiratory failure was secondary to acute bronchitis as well as LLL community-acquired pneumonia. The LLL pneumonia was unable to be seen on chest x-ray but was discovered on CTA chest. He was treated with a combination of IV steroids, IV antibiotics, scheduled nebulizer treatments, and pulmonary toilet. Oxygen was weaned off by hospital day #2, and all pulmonary symptoms improved by hospital day #3. With the exception of a fever that he had at the time of ER presentation he otherwise remained afebrile. Blood cultures remained negative during his stay. At discharge his O2 sats in room air were normal with walking. The following were recommended at hospital discharge - 1. prednisone taper for his acute bronchitis 2. combivent inhaler four times a day for his acute bronchitis 3. levaquin x 4 more days starting 01/05/18 for his LLL pneumonia 4. lactinex for GI prophylaxis 5. tessalon pearles as needed for cough 6. metoprolol 25mg twice a day for his HTN as his BPs were ALL elevated starting with his initial BPs in the emergency room 7. potassium supplementation due to chronic HCTZ use 8. repeat chest x-ray in about 4-6 weeks to ensure normal left lung field/no evidence of ongoing infiltrate He was advised to follow-up with Dr. Maldonado, his PCP, within 3 days of discharge. Total Time Spent: Greater than 30 minutes This includes examination of the patient, discharge planning, medication reconciliation, and communication with other providers. Discharge Instructions Please refer to the electronic Patient Visit Report (Discharge Instructions) for additional information. Follow-Up see Dr. Maldonado, PCP, within 3 days Additional Copies To Nasir Maldonado M.D.
[2018-01-04] MEDS ORDERED: METOPROLOL TARTRATE 25 MG TAB PO SCH (20:00)
== END 2018-01-04 11:04 | disposition home or self-care (01) | DRG 193 ==
LOC: C.EDB 11:22 → C.MS4W 14:33 → ENRESERV 14:55
PROVIDERS: ADMIT Internal Medicine; ATTEND Internal Medicine
DX: J18.1 Lobar pneumonia, unspecified organism (principal); J96.01 Acute respiratory failure with hypoxia; Z68.41 Body mass index [BMI] 40.0-44.9, adult; J20.9 Acute bronchitis, unspecified; E87.6 Hypokalemia; I10 Essential (primary) hypertension; E03.9 Hypothyroidism, unspecified; K21.9 Gastro-esophageal reflux disease without esophagitis; E66.01 Morbid (severe) obesity due to excess calories; Z86.711 Personal history of pulmonary embolism; Z86.718 Personal history of other venous thrombosis and embolism; Z79.82 Long term (current) use of aspirin; Z79.899 Other long term (current) drug therapy; Z88.8 Allergy status to other drugs, medicaments and biological substances

== ENCOUNTER 2024-10-02 07:09 | Inpatient (IN) ==
--- NOTE | 2024-10-02 08:18 | XRay Report ---
XR chest 1V not portable HISTORY: 69 years-old Male Chest pain, nonspecific COMPARISON: 07/21/2024 TECHNIQUE: AP view the chest FINDINGS: Cardiac silhouette is normal in size. Atherosclerosis of the aorta. No pneumothorax, pleural effusion . Chronic interstitial coarsening. Bones appear grossly intact. IMPRESSION: No acute process. ACT 112: Negative or not required by law. The above report was generated using voice recognition software. It may contain grammatical, syntax o r spelling errors. Electronically signed by: Scotty Pinedo M.D. 10/02/2024 8:17 AM
[2024-10-02] MEDS: OPTIRAY 320 125ml IV ONE (09:05)
[2024-10-02 09:12] LABS: iSTAT Creatinine 1.2 mg/dl (0.6-1.3); iSTAT Hemoglobin 15.6 g/dl (14.0-18.0); iSTAT Ionized Calcium 1.21 mmol/l (1.12-1.32); iSTAT Potassium 4.2 mmol/L (3.3-5.0)
[2024-10-02 09:37] LABS: Albumin Globulin Ratio 1.2 (0.9-2); Albumin Level 3.9 gm/dl (3.4-5.0); BUN Creatinine Ratio 14.4 (10-20); Bilirubin,Total 0.9 mg/dl (0.2-1.0); Calcium 10.1 mg/dl (8.6-10.3); Creatinine Clr Calc Pharmacy 79.9 ml/min; Globulin 3.3 gm/dl (2.5-4.0); Potassium 4.3 mmol/L (3.5-5.1); Total Protein 7.2 gm/dl (6.0-8.3)
[2024-10-02 09:41] LABS: Basophils # (auto) 0.06 K/uL (0.00-0.20); Basophils % (auto) 0.9 %; Eosinophils # (auto) 0.31 K/uL (0.00-0.50); Eosinophils % (auto) 4.5 %; Hematocrit (blood only) 45.3 % (42.0-52.0); Hemoglobin 15.4 g/dl (14.0-18.0); Immature Granulocytes # (auto) 0.01 K/uL (0.01-0.20); Immature Granulocytes % (auto) 0.1 %; Lymphocytes # (auto) 1.52 K/uL (1.20-3.40); Lymphocytes % (auto) 21.9 %; Mean Corpuscular Hemoglobin 30.6 pg (25.0-34.0); Mean Corpuscular Volume 89.9 fL (80.0-100.0); Mean Platelet Volume 10.8 fL (9.4-12.4); Monocytes % (auto) 8.6 %; Neutrophils # (auto) 4.45 K/uL (1.40-6.50); Platelet Count 219 K/uL (130-400); RDW Coefficient of Variation 13.1 % (11.5-14.5); RDW Standard Deviation 42.8 fL (36.4-46.3); Red Blood Count 5.04 M/uL (4.70-6.10); White Blood Count 6.95 K/ul (4.8-10.8)
[2024-10-02 09:46] LABS: Adenovirus PCR Not Detected (NotDetected); Bordetella parapertussis PCR Not Detected (NotDetected); Bordetella pertussis PCR Not Detected (NotDetected); Chlamydia pneumoniae PCR Not Detected (NotDetected); Coronavirus 229E PCR Not Detected (NotDetected); Coronavirus CoV-2 (COVID19)PCR Not Detected (NotDetected); Coronavirus HKU1 PCR Not Detected (NotDetected); Coronavirus NL63 PCR Not Detected (NotDetected); Coronavirus OC43PCR Not Detected (NotDetected); Human Metapneumovirus PCR Not Detected (NotDetected); Influenza A PCR Not Detected (NotDetected); Influenza B PCR Not Detected (NotDetected); Mycoplasma pneumoniae PCR Not Detected (NotDetected); Parainfluenza Virus 1 PCR Not Detected (NotDetected); Parainfluenza Virus 2 PCR Not Detected (NotDetected); Parainfluenza Virus 3 PCR Not Detected (NotDetected); Parainfluenza Virus 4 PCR Not Detected (NotDetected); Respiratory Syncytial VirusPCR Not Detected (NotDetected); Rhinovirus/Enterovirus PCR Not Detected (NotDetected)
[2024-10-02 09:49] LABS: Partial Thromboplastin Ratio 1.1; Partial Thromboplastin Time 29 Seconds (21-31); Prothrombin Time 11.2 Seconds (9.0-12.0)
--- NOTE | 2024-10-02 09:59 | CT Scan Report ---
CT angio chest PE protocol CT DOSE: 1087.66 mGy.cm HISTORY: 69 years-old Male with ?PE, hypoxia, hx of pe. Acute shortness of breath with hypoxia TECHNIQUE: Multiple CTA images of the chest were obtained after the intravenous administration of 112 ml Optiray. Coronal and sagittal MIPS were obtained from the axial data set and were submitted for review. All measurements were obtained according to NASCET criteria. A dose lowering technique was u tilized adhering to the principles of ALARA. COMPARISON: 01/02/2018 FINDINGS: CTA: Mild cardiomegaly. There is straightening of the intraventricular septum. Moderate coronary artery ca lcifications. Atherosclerosis of the aorta without aneurysm. Extensive pulmonary emboli with saddle e mbolus, large main, lobar, segmental and subsegmental right sided predominant pulmonary emboli. CT CHEST: No thyroid nodule or lymphadenopathy. No pneumothorax, pleural effusion or edema. No suspicious pulmo nary nodules or masses. No acute pulmonary infarcts. There are a few scattered calcified pulmonary gr anulomata. Central airways are patent. Hepatic steatosis. Cholelithiasis with gallbladder distention and borderline gallbladder wall thicken ing. Unremarkable soft tissues. No acute fracture. IMPRESSION: 1. Extensive pulmonary emboli with saddle embolus and right heart strain. 2. No pleural effusion or pulmonary infarct. 3. Distended gallbladder with cholelithiasis and mild wall thickening. Correlation with ultrasound re commended. ACT 112: Negative or not required by law. The above report was generated using voice recognition software. It may contain grammatical, syntax o r spelling errors. Electronically signed by: Scotty Pinedo M.D. 10/02/2024 9:57 AM
[2024-10-02] MEDS: HEPARIN SOD (PORCINE) 1000 UNIT/ML IV ONE (10:52)
--- NOTE | 2024-10-02 10:52 | History & Physical Report ---
Date of Service October 02, 2024 Assessment & Plan (1) Acute saddle pulmonary embolism: Plan: Previous pulmonary embolism in 2013. Current pulmonary embolism provoked with recent right leg immobilization from a distal right tibial fracture. PESI score 98 - intermediate risk with right heart strain on CT, troponin normal, BNP pending, echo pending Discussed with guest laundry attendant on admission and recommended IV heparin alone and admission to PCU - consult pulmonology Given size of clot we will place patient on bedrest for today (2) Abnormal CT of the chest: Plan: CT concerning for possible acute cholecystitis however no right upper quadrant pain on exam, ultrasound ordered by ER currently pending. Low suspicion of acute cholecystitis on exam. (3) Fracture of distal end of right tibia: Plan: Per previous orthopedic note continue in a high tide boot and weight-bear as tolerated in the boot Plan VTE prophylaxis - IV heparin Diet - heart healthy Disposition - admit to PCU Admission and Anticipated Discharge Date Admission Date: October 02, 2024 History of Present Illness Chief Complaint: Shortness of breath Primary Care Provider: Nasir Maldonado Benton Chaidez is a 69 year old male who presents to the ER with shortness of breath. He reports waking up at 3 AM this morning diaphoretic with significant shortness of breath on exertion. No chest pain. No fever, chills, cough. He felt well yesterday. He has a history of pulmonary embolism around 10 years ago following trauma. He recently fractured his distal tibia on September 24 and placed in a walking boot without anticoagulation. Per previous orthopedic notes he is weightbearing as tolerated on this leg. Allergies Allergy/AdvReac Type Severity Reaction Status Date / Time lisinopril Allergy Mild Cough Verified 10/02/24 10:00 Home Medications Medication Instructions Recorded Confirmed Type potassium chloride 10 mEq 10 meq PO QAM 04/08/20 10/02/24 History tablet,extended release [id number] 150 mcg-vit K1 1 tab PO DAILY 09/20/24 10/02/24 History 30 mcg-lycop 300 mcg-lutein tablet (Centrum Minis Men 50 Plus) tirzepatide 15 mg/0.5 mL 15 mg subcut WK 09/20/24 10/02/24 History subcutaneous pen injector (Yudith) aspirin 81 mg tablet,delayed 81 mg PO QAM 10/02/24 10/02/24 History release bupropion HCl 150 mg 24 hr tablet, 150 mg PO QAM 10/02/24 10/02/24 History extended release hydrochlorothiazide 25 mg tablet 25 mg PO QAM 10/02/24 10/02/24 History levothyroxine 125 mcg tablet 125 mcg PO DAILYBB 10/02/24 10/02/24 History losartan 100 mg tablet 100 mg PO HS 10/02/24 10/02/24 History metoprolol succinate 50 mg 50 mg PO HS 10/02/24 10/02/24 History tablet,extended release 24 hr pravastatin 20 mg tablet 20 mg PO HS 10/02/24 10/02/24 History Past Med/Surg History Problem List (Updated 10/02/24 @ 11:12 by Chente Lindsey MD) Abnormal CT of the chest Acute saddle pulmonary embolism Fracture of distal end of right tibia (Acute) Encounter for pre-operative examination History of bilateral hip replacements History of pulmonary embolus (PE) (Acute) History of pulmonary embolus (PE) (Acute) GERD (gastroesophageal reflux disease) (Acute) Community acquired pneumonia Chest tightness or pressure (Acute 10/01/14) Chest pain (Acute) Chest pain (Acute) Chest pain (Acute) Acute respiratory failure with hypoxia Abdominal bloating (Acute) Abdominal bloating (Acute) DVT (deep venous thrombosis) (Chronic) PE (pulmonary embolism) (Chronic) GERD (gastroesophageal reflux disease) (Chronic) Hyperlipidemia (Chronic) Hypothyroidism (Chronic) Hypertension (Chronic) PE (pulmonary embolism) (Acute 07/06/13) Medical History History of melanoma Diabetes mellitus History of pneumonia (2018) GERD (gastroesophageal reflux disease) Hypothyroidism Hypertension Hyperlipidemia AAA (abdominal aortic aneurysm) follows with cardio at [facility], has Abd duplex /US scheduled at [facility] october 28, 2024 - dr. 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 Beliefs That Will Affect Care: None marital status: Current Living Situation: Spouse current occupational status: employed Feels Safe at Home: Yes Assistive Devices: None Review of Systems Review of Systems: All systems reviewed & are unremarkable except as noted in HPI & below Physical Exam Constitutional: WD/WN, vitals as above Respiratory: normal respiratory effort, lungs clear to auscultation Cardiovascular: RRR, no murmur, no edema Gastrointestinal (Abdomen): normal bowel sounds, soft, nontender, no hepatosplenomegaly Musculoskeletal: Right leg in boot not removed Skin: no rashes, warm and dry Neurologic: moves all extremities and awake; not confused Psychiatric: A+Ox3, euthymic affect Results & Data Results & Data Vital Signs (Past 12 Hours) Vital Signs Pulse Pulse Resp BP BP Pulse Ox O2 Del Method 10/02/24 09:33 85 16 128/75 93 Nasal Cannula 10/02/24 07:47 85 L Room Air 10/02/24 07:42 89 10/02/24 07:22 88 20 160/94 H 88 L Room Air O2 Flow Rate 10/02/24 09:33 2 10/02/24 07:47 10/02/24 07:42 10/02/24 07:22 Laboratory Results Abnormal lab results 10/02/24 10/02/24 Range/Units 08:55 09:00 [place] # (Auto) 0.60 H (0.11-0.59) K/uL POC Anion Gap 15.0 L (16-25) mmol/L Glucose 116 H (70-99(Fasting)) mg/dl POC Glucose (other) 116 H (70-99) mg/dl Diagnostic Findings XR chest 1V not portable HISTORY: 69 years-old Male Chest pain, nonspecific COMPARISON: 07/21/2024 TECHNIQUE: AP view the chest FINDINGS: Cardiac silhouette is normal in size. Atherosclerosis of the aorta. No pneumothorax, pleural effusion. Chronic interstitial coarsening. Bones appear grossly intact. IMPRESSION: No acute process. CT angio chest PE protocol CT DOSE: 1087.66 mGy.cm HISTORY: 69 years-old Male with ?PE, hypoxia, hx of pe. Acute shortness of breath with hypoxia TECHNIQUE: Multiple CTA images of the chest were obtained after the intravenous administration of 112 ml Optiray. Coronal and sagittal MIPS were obtained from the axial data set and were submitted for review. All measurements were obtained according to NASCET criteria. A dose lowering technique was utilized adhering to the principles of ALARA. COMPARISON: 01/02/2018 FINDINGS: CTA: Mild cardiomegaly. There is straightening of the intraventricular septum. Moderate coronary artery calcifications. Atherosclerosis of the aorta without aneurysm. Extensive pulmonary emboli with saddle embolus, large main, lobar, segmental and subsegmental right sided predominant pulmonary emboli. CT CHEST: No thyroid nodule or lymphadenopathy. No pneumothorax, pleural effusion or edema. No suspicious pulmonary nodules or masses. No acute pulmonary infarcts. There are a few scattered calcified pulmonary granulomata. Central airways are patent. Hepatic steatosis. Cholelithiasis with gallbladder distention and borderline gallbladder wall thickening. Unremarkable soft tissues. No acute fracture. IMPRESSION: 1. Extensive pulmonary emboli with saddle embolus and right heart strain. 2. No pleural effusion or pulmonary infarct. 3. Distended gallbladder with cholelithiasis and mild wall thickening. Correlation with ultrasound recommended. Medications Administered ER medications given: Heparin IV standard dose with bolus ECG Rate (beats per minute): 91 Rhythm: normal sinus Findings: + other (T wave flattening evident in anterior leads) Comparison ECG Date: from (April 11, 2020) Change: the following changes noted (T wave flattening is new) Code Status & VTE Plan Code Status Full VTE Prophylaxis Plan VTE Prophylaxis will be ordered: Yes PG Care Time/CCT Total # of Minutes Spent Total Time Spent with Patient: Total time spent is greater than 50% in coordination of care (as documented) at patient's floor/unit and/or counseling patient: Coding Level of Care Code 38872 INT INP/OBS CARE 3/75MIN Diagnoses Acute saddle pulmonary embolism, unspecified whether acute cor pulmonale present I26.92 Acute cor pulmonale presence: unspecified Abnormal CT of the chest R93.89 Fracture of distal end of right tibia S82.301A Encounter type: initial encounter Fracture morphology: unspecified fracture morphology Fracture type: closed (1) Acute saddle pulmonary embolism Acute cor pulmonale presence: unspecified Qualified Code(s): I26.92 - Saddle embolus of pulmonary artery without acute cor pulmonale (3) Fracture of distal end of right tibia Encounter type: initial encounter Fracture morphology: unspecified fracture morphology Fracture type: closed Qualified Code(s): S82.301A - Unspecified fracture of lower end of right tibia, initial encounter for closed fracture
[2024-10-02] MEDS: HEPARIN 25000 UNIT/500 ML D5W 25,000 UNITS/500 ML BAG IV SCH (10:53)
[2024-10-02] MEDS: Heparin IV Adult Wt-Based Standard w/ INITIAL Bolus Protocol IV STA (10:54)
--- NOTE | 2024-10-02 11:14 | Ultrasound Report ---
US venous doppler LE RT HISTORY: 69 years-old Male eval for DVT. Current saddle PE. Bedside plz acute pain and swelling of the lower leg COMPARISON: 04/24/2021 TECHNIQUE: Multiple real-time sonographic images of the right lower extremity deep venous structures were obtained assessing grayscale appearance, color and spectral flow. FINDINGS: Partially occlusive thrombus noted within the right popliteal vein and additionally within the whizzer operator ior tibial veins. Occlusive thrombus within the peroneal vein extending proximal to distal. IMPRESSION: Lower extremity DVT, likely acute versus subacute. ACT 112: Negative or not required by law. The above report was generated using voice recognition software. It may contain grammatical, syntax o r spelling errors. Electronically signed by: Scotty Pinedo M.D. 10/02/2024 11:13 AM
--- NOTE | 2024-10-02 11:28 | Ultrasound Report ---
ABDOMINAL ULTRASOUND, RIGHT UPPER QUADRANT HISTORY: Acute right upper quadrant abdominal pain poss oly. current saddle PE. Bedside US plz.. COMPARISON: CTA chest of same day FINDINGS: Limited exam secondary to patient body habitus. Pancreas: The pancreas is obscured by bowel gas. Liver: Increased echogenicity compatible with hepatic steatosis. Gallbladder: Cholelithiasis. No definite gallbladder wall thickening or pericholecystic fluid. Negati ve sonographic Szymanski's sign. CBD: 5 mm. Right kidney: No hydronephrosis. IMPRESSION: 1. Cholelithiasis without sonographic evidence of acute cholecystitis. 2. Hepatic steatosis. 3. No biliary ductal dilation. ACT 112: Negative or not required by law. Electronically signed by: Scotty Pinedo M.D. 10/02/2024 11:27 AM
[2024-10-02] MEDS ORDERED: ACETAMINOPHEN 325 MG TAB PO PRN (12:09)
--- NOTE | 2024-10-02 12:28 | Pulmonary Consultation ---
Date of Consultation October 02, 2024 Assessment & Plan (1) Acute saddle pulmonary embolism: 69-year-old male who presented with provoked pulmonary embolism in the setting of acute right ankle fracture and immobilization. Continue with heparin infusion. Intermediate risk PE noted. Continue low-flow oxygen to maintain saturation of 95% and above in the setting of acute RV strain. Bed rest today and increase mobility tomorrow as tolerated. Follow-up echocardiogram. Ultrasound of lower extremities reveal partially occlusive thrombus in the right popliteal vein additionally within the posterior tibial veins. Occlusive thrombus within the peroneal vein extending proximal to distal. Should the patient have any significant clinical decline, can administer thrombolytics and/or consider transfer to a tertiary center for IR thrombectomy. If the patient does well in his clinical course, can likely transition to DOAC therapy in the next 48 to 72 hours. Recommend repeat outpatient echo in about 3 months to ensure no persistent pulmonary hypertension. Thank you for the consult. Please call with questions. Acute cor pulmonale presence: unspecified Qualified Code(s): I26.92 - Saddle embolus of pulmonary artery without acute cor pulmonale History of Present Illness Reason for Consultation: Submassive PE Attending Physician: Chente Lindsey MD History of Present Illness 69-year-old male who was getting out of his truck about 1 week ago, slipped on ice and unfortunately ended up with a right ankle fracture. He is currently in a cast. He previously had a PE in 2013 related to a fall. He notes that around 2 AM he woke up with shortness of breath and diaphoresis. His drove him to the hospital and he was found to have extensive PE on CT chest performed today. Right now he is saturating well in the 90s on low-flow oxygen and lying in bed. He denies any shortness of breath at present or chest pain. Allergies Allergy/AdvReac Type Severity Reaction Status Date / Time lisinopril Allergy Mild Cough Verified 10/02/24 10:00 Home Medications Medication Instructions Recorded Confirmed Type potassium chloride 10 mEq 10 meq PO QAM 04/08/20 10/02/24 History tablet,extended release [id number] 150 mcg-vit K1 1 tab PO DAILY 09/20/24 10/02/24 History 30 mcg-lycop 300 mcg-lutein tablet (Centrum Minis Men 50 Plus) tirzepatide 15 mg/0.5 mL 15 mg subcut WK 09/20/24 10/02/24 History subcutaneous pen injector (Yudith) aspirin 81 mg tablet,delayed 81 mg PO QAM 10/02/24 10/02/24 History release bupropion HCl 150 mg 24 hr tablet, 150 mg PO QAM 10/02/24 10/02/24 History extended release hydrochlorothiazide 25 mg tablet 25 mg PO QAM 10/02/24 10/02/24 History levothyroxine 125 mcg tablet 125 mcg PO DAILYBB 10/02/24 10/02/24 History losartan 100 mg tablet 100 mg PO HS 10/02/24 10/02/24 History metoprolol succinate 50 mg 50 mg PO HS 10/02/24 10/02/24 History tablet,extended release 24 hr pravastatin 20 mg tablet 20 mg PO HS 10/02/24 10/02/24 History Patient History Medical History History of melanoma Diabetes mellitus History of pneumonia (2017) GERD (gastroesophageal reflux disease) Hypothyroidism Hypertension Hyperlipidemia AAA (abdominal aortic aneurysm) follows with cardio at [facility], has Abd duplex /US scheduled at [facility] october 28, 2024 - dr. 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 Patient is in no apparent distress. Patient is well-developed. Eyes: Pupils are equal round and reactive to light. Conjunctivae are normal. Anicteric sclera. Ears nose, mouth and throat: Mallampati class 4. Normal posterior oropharynx. Uvula is midline. Neck: Trachea is midline. Visual inspection is normal. Respiratory: Clear to auscultation bilaterally. No use of accessory muscles. No significant clubbing noted. Cardiovascular: Regular rate and rhythm. No murmurs. No edema. Gastrointestinal: Normal bowel sounds, soft, nontender and nondistended. No hepatosplenomegaly noted. Musculoskeletal: No cyanosis. Patient is able to move all extremities. Right leg is immobilized in a cast. Skin: No rashes, warm dry and intact. Neurologic: No obvious focal neurological deficits seen. Psychiatric: Alert and oriented x3 with a euthymic affect. Results & Data Results & Data Vital Signs (Past 12 Hours) Vital Signs Pulse Pulse Resp BP BP Pulse Ox O2 Del Method 10/02/24 11:12 88 22 122/72 94 Nasal Cannula 10/02/24 10:50 Nasal Cannula 10/02/24 09:33 85 16 128/75 93 Nasal Cannula 10/02/24 07:47 85 L Room Air 10/02/24 07:42 89 10/02/24 07:22 88 20 160/94 H 88 L Room Air O2 Flow Rate 10/02/24 11:12 2 10/02/24 10:50 2 10/02/24 09:33 2 10/02/24 07:47 10/02/24 07:42 10/02/24 07:22 PG Care Time/CCT Total # of Minutes Spent Total Time Spent with Patient: Total time spent is greater than 50% in coordination of care (as documented) at patient's floor/unit and/or counseling patient: Coding Level of Care Code 28350 INT INP/OBS CARE 2/55MIN Diagnoses Acute saddle pulmonary embolism, unspecified whether acute cor pulmonale present I26.92 Acute cor pulmonale presence: unspecified
[2024-10-02] MEDS: PANTOprazole 40 MG TAB PO SCH (13:25)
--- NOTE | 2024-10-02 15:36 | Emergency Department Note ---
Impression & Plan Acute saddle pulmonary embolus, Hypoxia, Acute deep vein thrombosis (DVT) of right lower extremity, Cholelithiasis ED Provider Note NAME: KARIME CARR AGE: 69 SEX: Male INFORMANT: Patient ED PROVIDER(S): Breezy Conteh MD CHIEF COMPLAINT: Shortness of breath PLAN: Disposition: Admitted Outpatient prescription management: none Referral: None MEDICAL DECISION MAKING: Patient present because of shortness of breath. ECG was normal. Chest x-ray was unremarkable. Patient's vital signs were stable. He was sent for CT imaging after i-STAT was unrevealing. Patient was found to have bilateral pulmonary emboli with a saddle component. Right heart strain noted. Cardiac troponin negative. Discussed the case with Dr. Womack of ICU critical care. He agreed with initiation of heparin and admission to internal medicine. He also requested an echo and this was ordered. Consultation was [facility] with [facility]. Case discussed and diagnostics were reviewed. Patient was evaluated in the ER and admitted for further management. I did order standard hypercoagulability labs prior to initiation of heparin. Patient had bedside ultrasound of the leg performed and DVT present. Due to the findings of cholelithiasis on CT imaging I also did do a bedside gallbladder ultrasound. This was positive for cholelithiasis without evidence of cholecystitis. Patient has had no right upper quadrant pain and has a benign abdominal examination. I refer you to the EMR for further details. Care/management discussed with: Critical care, hospitalist, content manager Level of care consideration(s): After review of the information above and other included data, I feel the patient requires escalation of care to admission Triage Nursing notes: reviewed and agree them. Vital Signs: reviewed and remarkable for no significant abnormalities Additional History obtained from: none Chronic Medical/Social Conditions affecting care: none Prior/ Outside/ External records reviewed: none Differential Diagnosis: Reactive airway disease, pneumonia, pneumothorax, COPD, CHF, infections, cardiac ischemia, pulmonary embolism, musculoskeletal, gastrointestinal, as well as other pathologies. Diagnostics, independently interpreted by me: ECG: Twelve-lead ECG reveals a normal sinus rhythm at [address] elevation depression. No PACs or PVCs. No S1 Q 3 T3. Cardiac Monitoring: Cardiac monitoring ordered by me: The patient was placed on continuous cardiac monitoring and observed. It revealed a normal sinus rhythm at 92 beats per minute without ectopy or evidence of dysrhythmia. Medical decision rules: none Imaging studies: Chest x-ray and CT PE study as above. HPI: 69 year old Male arrives for evaluation of shortness of breath. Patient notes this started last night. Last week he suffered a fall and fractured his right tibia. He was placed in a boot. Patient notes mild swelling on the right leg but not much more than since the fall. Patient does note a history of pulmonary embolism about 10 years ago from trauma. He is not currently on anticoagulation. He states he was treated with Coumadin at that time. Pt denies LOC, headache, fevers, chills, diaphoresis, visual changes, neck pain, chest pain,nausea, vomiting, abdominal pain, back pain, melena, hematochezia, urinary symptoms, numbness, weakness, lymphadenopathy, or other complaints.. PAST MEDICAL HISTORY: See Below, pulmonary embolism PAST SURGICAL HISTORY: See Below, SOCIAL HISTORY: See Below, HOME MEDICATIONS: See Below ALLERGIES: See Below VITALS: See Below PHYSICAL EXAMINATION: GENERAL: Awake, alert, well-appearing, in no distress HENT: Normocephalic, atraumatic. Oropharynx unremarkable. EYES: Normal conjunctiva. Sclera non-icteric. NECK: Inspection normal. Non-tender. Supple. No nuchal rigidity. FROM. No masses. RESPIRATORY: Clear to auscultation. No wheezes. No rales. Normal respiratory effort. CARDIAC: Normal rate. Normal rhythm. No murmurs. No rubs. Extremities warm and well perfused. Pulses equal. No JVD. GI: Soft, non-distended. No tenderness to palpation. No rebound or guarding. No masses. RECTAL: Deferred. MUSCULOSKELETAL: Atraumatic. Chest examination reveals no tenderness. The back is symmetrical on inspection without obvious abnormality. There is no CVA tenderness to palpation. No joint edema. LOWER EXTREMITIES: Right lower leg boot in place. Straps and Velcro removed. Right leg slightly larger than the left with mild edema. Boot replaced. NEURO: Normal sensorium. No sensory or motor deficits noted. SKIN: No rash or jaundice noted. PROCEDURES: none CRITICAL CARE: I have personally spent 60 minutes of critical care time in the direct management of this patient. This includes bedside care, interpretation of diagnostic studies, and testing, discussion with consultants, patient, and family members, and other required patient management activities. These minutes are in excess of all separately billable procedures. OBSERVATION NOTE: none Past Med/Surg History Problem List (Updated 10/02/24 @ 15:36 by Breezy Conteh MD) Cholelithiasis (Acute) Acute deep vein thrombosis (DVT) of right lower extremity (Acute) Hypoxia (Acute) Acute saddle pulmonary embolus (Acute) Abnormal CT of the chest Acute saddle pulmonary embolism Fracture of distal end of right tibia (Acute) Encounter for pre-operative examination History of bilateral hip replacements History of pulmonary embolus (PE) (Acute) History of pulmonary embolus (PE) (Acute) GERD (gastroesophageal reflux disease) (Acute) Community acquired pneumonia Chest tightness or pressure (Acute 10/01/14) Chest pain (Acute) Chest pain (Acute) Chest pain (Acute) Acute respiratory failure with hypoxia Abdominal bloating (Acute) Abdominal bloating (Acute) DVT (deep venous thrombosis) (Chronic) PE (pulmonary embolism) (Chronic) GERD (gastroesophageal reflux disease) (Chronic) Hyperlipidemia (Chronic) Hypothyroidism (Chronic) Hypertension (Chronic) PE (pulmonary embolism) (Acute 07/06/13) Medical History History of melanoma Diabetes mellitus History of pneumonia (2018) GERD (gastroesophageal reflux disease) Hypothyroidism Hypertension Hyperlipidemia AAA (abdominal aortic aneurysm) follows with cardio at [facility], has [facility] lewis Hx of deep venous thrombosis (2016) traveled to lungs- admit to [facility]- no clots since Hx pulmonary embolism (2017) admit to [facility], no clots since Surgical History Hx of melanoma excision Hx of colonoscopy Hx of umbilical hernia repair Hx of bilateral hip replacements (2005) Social History Smoking Status: Never smoker Second Hand Exposure: No; Do You Dip or Chew Tobacco: No; Tobacco Cessation Education Requested by Patient: No Hx Alcohol Use: Yes Alcohol type: beer Hx Substance Use: No Preferred Language: Bolivian Communication Ability: Effective Low Emission Automobile Designer Required: No Beliefs That Will Affect Care: None marital status: Current Living Situation: Spouse current occupational status: employed Other Information That Helps Us Care for You: No Feels Safe at Home: Yes Safety Concerns: Feels Safe At This Time Assistive Devices: None Allergies Allergies Allergy/AdvReac Type Severity Reaction Status Date / Time lisinopril Allergy Mild Cough Verified 10/02/24 10:00 Home Meds Home Medications Medication Instructions Recorded Confirmed potassium chloride 10 mEq 10 meq PO QAM 04/08/20 10/02/24 tablet,extended release [id number] 150 mcg-vit K1 1 tab PO DAILY 09/20/24 10/02/24 30 mcg-lycop 300 mcg-lutein tablet (Centrum Minis Men 50 Plus) tirzepatide 15 mg/0.5 mL 15 mg subcut WK 09/20/24 10/02/24 subcutaneous pen injector (Yudith) aspirin 81 mg tablet,delayed 81 mg PO QAM 10/02/24 10/02/24 release bupropion HCl 150 mg 24 hr tablet, 150 mg PO QAM 10/02/24 10/02/24 extended release hydrochlorothiazide 25 mg tablet 25 mg PO QAM 10/02/24 10/02/24 levothyroxine 125 mcg tablet 125 mcg PO DAILYBB 10/02/24 10/02/24 losartan 100 mg tablet 100 mg PO HS 10/02/24 10/02/24 metoprolol succinate 50 mg 50 mg PO HS 10/02/24 10/02/24 tablet,extended release 24 hr pravastatin 20 mg tablet 20 mg PO HS 10/02/24 10/02/24 Results & Data (ED) Vital Signs Vital Signs - 24 hr 10/02/24 07:22 10/02/24 07:42 10/02/24 07:47 Pulse Rate 88 89 Pulse Rate [Left Finger] Respiratory Rate 20 Respiratory Effort / Characteristics Non-Labored Spontaneous Respiratory Depth Normal Respiratory Pattern Regular Blood Pressure 160/94 H Blood Pressure [Right Arm] Blood Pressure Mean 116 Blood Pressure Mean [Right Arm] Pulse Oximetry 88 L 85 L Oxygen Delivery Method Room Air Room Air Oxygen Flow Rate Sepsis Recent Fever Within 48 Hours No Sepsis New/Unexplained Change in Mental Status N/A Sepsis Action Taken by Nursing No Action Required Oxygen Flow Rate - Titration 2 Pulse Oximetry Post Tiitration 94 10/02/24 09:33 Pulse Rate Pulse Rate [Left Finger] 85 Respiratory Rate 16 Respiratory Effort / Characteristics Respiratory Depth Respiratory Pattern Blood Pressure Blood Pressure [Right Arm] 128/75 Blood Pressure Mean Blood Pressure Mean [Right Arm] 92 Pulse Oximetry 93 Oxygen Delivery Method Nasal Cannula Oxygen Flow Rate 2 Sepsis Recent Fever Within 48 Hours Sepsis New/Unexplained Change in Mental Status Sepsis Action Taken by Nursing Oxygen Flow Rate - Titration Pulse Oximetry Post Tiitration Laboratory Data 10/02/24 08:55 10/02/24 08:55 Lab Results 10/02/24 10/02/24 10/02/24 Range/Units 08:39 08:55 09:00 WBC 6.95 (4.8-10.8) K/ul RBC 5.04 (4.70-6.10) M/uL Hgb 15.4 (14.0-18.0) g/dl POC Hgb 15.6 (14.0-18.0) g/dl Hct 45.3 (42.0-52.0) % POC Hct 46 (42-52) % MCV 89.9 (80.0-100.0) fL MCH 30.6 (25.0-34.0) pg MCHC 34.0 (32.0-36.0) g/dL RDW Std Deviation 42.8 (36.4-46.3) fL RDW Coeff of Osmin 13.1 (11.5-14.5) % Plt Count 219 (130-400) K/uL MPV 10.8 (9.4-12.4) fL Immature Gran % (Auto) 0.1 % Neut % (Auto) 64.0 % Lymph % (Auto) 21.9 % Nolan % (Auto) 8.6 % Eos % (Auto) 4.5 % Baso % (Auto) 0.9 % Neut # (Auto) 4.45 (1.40-6.50) K/uL Lymph # (Auto) 1.52 (1.20-3.40) K/uL Nolan # (Auto) 0.60 H (0.11-0.59) K/uL Eos # (Auto) 0.31 (0.00-0.50) K/uL Baso # (Auto) 0.06 (0.00-0.20) K/uL Immature Gran # (Auto) 0.01 (0.01-0.20) K/uL PT 11.2 (9.0-12.0) Seconds INR 1.0 (0.9-1.1) APTT 29 (21-31) Seconds PTT Ratio 1.1 POC Sodium 138 (135-144) mmol/L Sodium 139 (136-145) mmol/L POC Potassium 4.2 (3.3-5.0) mmol/L Potassium 4.3 (3.5-5.1) mmol/L POC Chloride 102 (101-112) mmol/L Chloride 103 (98-107) mmol/L Carbon Dioxide 30 (21-32) mmol/L POC Total CO2 26 (24-31) mmol/L Anion Gap 6 (3-11) POC Anion Gap 15.0 L (16-25) mmol/L POC BUN 16 (7-18) mg/dl BUN 15 (6-23) mg/dl Creatinine 1.04 (0.6-1.4) mg/dl POC Creatinine 1.2 (0.6-1.3) mg/dl Est Cr Clr Drug Dosing 79.9 ml/min eGFR 78.21 BUN/Creatinine Ratio 14.4 (10-20) Glucose 116 H (70-99(Fasting)) mg/dl POC Glucose (other) 116 H (70-99) mg/dl Calcium 10.1 (8.6-10.3) mg/dl POC Ioniz Calcium Yasir 1.21 (1.12-1.32) mmol/l Total Bilirubin 0.9 (0.2-1.0) mg/dl AST 18 (13-39) U/L ALT 21 (7-52) U/L Alkaline Phosphatase 64 (34-104) U/L Troponin I High Sens 9.0 (0-20) pg/ml B-Natriuretic Peptide 37 (0-100) pg/ml Total Protein 7.2 (6.0-8.3) gm/dl Albumin 3.9 (3.4-5.0) gm/dl Globulin 3.3 (2.5-4.0) gm/dl Albumin/Globulin Ratio 1.2 (0.9-2) Adenovirus (PCR) Not Detected (NotDetected) B. pertussis DNA (PCR) Not Detected (NotDetected) B.parapertussis DNA PCR Not Detected (NotDetected) C. pneumoniae DNA (PCR) Not Detected (NotDetected) Coronavirus OC43 (PCR) Not Detected (NotDetected) Coronavirus HKU1 (PCR) Not Detected (NotDetected) Coronavirus 229E (PCR) Not Detected (NotDetected) SARS-CoV-2 (PCR) Not Detected (NotDetected) Coronavirus NL63 (PCR) Not Detected (NotDetected) Human Metapneumovir PCR Not Detected (NotDetected) Influenza Type A (PCR) Not Detected (NotDetected) Influenza Type B (PCR) Not Detected (NotDetected) M. pneumoniae (PCR) Not Detected (NotDetected) Parainfluenza 1 (PCR) Not Detected (NotDetected) Parainfluenza 2 (PCR) Not Detected (NotDetected) Parainfluenza 3 (PCR) Not Detected (NotDetected) Parainfluenza 4 (PCR) Not Detected (NotDetected) RSV (PCR) Not Detected (NotDetected) Entero/Rhino (PCR) Not Detected (NotDetected) Administered Medications Heparin Sodium/Dextrose (Heparin 18403 Unit/500 Ml) 25,000 units in 500 mls @ 30 mls/hr IV .[id number] [facility]; Protocol Stop: 11/01/24 09:59 Last Admin: 10/02/24 10:53 Dose: 1,500 units/hr, 30 mls/hr Documented By: NIKKO Co-signed By: Pantoprazole Sodium (Pantoprazole 40 Mg Tab) 40 mg PO QAM [facility] Stop: 11/01/24 12:14 Last Admin: 10/02/24 13:25 Dose: 40 mg Documented By: ELI Discontinued Medications Heparin Sodium (Porcine) (Heparin Sod (Porcine) 1000 Unit/Ml) 1 units IV NOW ONE Stop: 10/02/24 09:52 Last Admin: 10/02/24 10:52 Dose: 7,000 units Documented By: NIKKO Co-signed By: Heparin Sodium/Dextrose (Heparin Iv Adult Wt-Based Standard W/ Initial Bolus Protocol) 1 each IV NOW STA; Protocol Stop: 10/02/24 09:36 Last Admin: 10/02/24 10:54 Dose: Not Given Documented By: NIKKO Ioversol (Optiray 320 125ml) 112 ml IV ONCE ONE Stop: 10/02/24 09:06 Last Admin: 10/02/24 09:05 Dose: 112 ml Documented By: [facility] [place] Imaging Data Radiologist's Impression: Chest X-Ray 10/02/24 07:45 XR chest 1V not portable HISTORY: 69 years-old Male Chest pain, nonspecific COMPARISON: 07/21/2024 TECHNIQUE: AP view the chest FINDINGS: Cardiac silhouette is normal in size. Atherosclerosis of the aorta. No pneumothorax, pleural effusion. Chronic interstitial coarsening. Bones appear grossly intact. IMPRESSION: No acute process. ACT 112: Negative or not required by law. The above report was generated using voice recognition software. It may contain grammatical, syntax or spelling errors. Electronically signed by: Scotty Pinedo M.D. 10/02/2024 8:17 AM Chest CTA 10/02/24 08:42 CT angio chest PE protocol CT DOSE: 1087.66 mGy.cm HISTORY: 69 years-old Male with ?PE, hypoxia, hx of pe. Acute shortness of breath with hypoxia TECHNIQUE: Multiple CTA images of the chest were obtained after the intravenous administration of 112 ml Optiray. Coronal and sagittal MIPS were obtained from the axial data set and were submitted for review. All measurements were obtained according to NASCET criteria. A dose lowering technique was utilized adhering to the principles of ALARA. COMPARISON: 01/02/2018 FINDINGS: CTA: Mild cardiomegaly. There is straightening of the intraventricular septum. Moderate coronary artery calcifications. Atherosclerosis of the aorta without aneurysm. Extensive pulmonary emboli with saddle embolus, large main, lobar, segmental and subsegmental right sided predominant pulmonary emboli. CT CHEST: No thyroid nodule or lymphadenopathy. No pneumothorax, pleural effusion or edema. No suspicious pulmonary nodules or masses. No acute pulmonary infarcts. There are a few scattered calcified pulmonary granulomata. Central airways are patent. Hepatic steatosis. Cholelithiasis with gallbladder distention and borderline gallbladder wall thickening. Unremarkable soft tissues. No acute fracture. IMPRESSION: 1. Extensive pulmonary emboli with saddle embolus and right heart strain. 2. No pleural effusion or pulmonary infarct. 3. Distended gallbladder with cholelithiasis and mild wall thickening. Correlation with ultrasound recommended. ACT 112: Negative or not required by law. The above report was generated using voice recognition software. It may contain grammatical, syntax or spelling errors. Electronically signed by: Scotty Pinedo M.D. 10/02/2024 9:57 AM Gallbladder Ultrasound 10/02/24 10:03 ABDOMINAL ULTRASOUND, RIGHT UPPER QUADRANT HISTORY: Acute right upper quadrant abdominal pain poss oly. current saddle PE. Bedside US plz.. COMPARISON: CTA chest of same day FINDINGS: Limited exam secondary to patient body habitus. Pancreas: The pancreas is obscured by bowel gas. Liver: Increased echogenicity compatible with hepatic steatosis. Gallbladder: Cholelithiasis. No definite gallbladder wall thickening or pericholecystic fluid. Negative sonographic Szymanski's sign. CBD: 5 mm. Right kidney: No hydronephrosis. IMPRESSION: 1. Cholelithiasis without sonographic evidence of acute cholecystitis. 2. Hepatic steatosis. 3. No biliary ductal dilation. ACT 112: Negative or not required by law. Electronically signed by: Scotty Pinedo M.D. 10/02/2024 11:27 AM Venous Doppler Study 10/02/24 10:03 US venous doppler LE RT HISTORY: 69 years-old Male eval for DVT. Current saddle PE. Bedside plz acute pain and swelling of the lower leg COMPARISON: 04/24/2021 TECHNIQUE: Multiple real-time sonographic images of the right lower extremity deep venous structures were obtained assessing grayscale appearance, color and spectral flow. FINDINGS: Partially occlusive thrombus noted within the right popliteal vein and additionally within the posterior tibial veins. Occlusive thrombus within the peroneal vein extending proximal to distal. IMPRESSION: Lower extremity DVT, likely acute versus subacute. ACT 112: Negative or not required by law. The above report was generated using voice recognition software. It may contain grammatical, syntax or spelling errors. Electronically signed by: Scotty Pinedo M.D. 10/02/2024 11:13 AM Discharge Plan Visit Data Chief Complaint: Shortness of Breath/Dyspnea Stated Complaint: SOB,FATIGUE ED Provider: Breezy Conteh Discharge Problem: Acute saddle pulmonary embolus, Hypoxia, Acute deep vein thrombosis (DVT) of right lower extremity, Cholelithiasis Patient Disposition: Admitted As Inpatient Discharge Instructions Interventions: ED Discharge Assessment Last Done: 10/02/24 11:25
[2024-10-02 17:40] LABS: ANTI-Xa, UFH(UnfractionatedHep 0.67 IU/ml (0.3-0.7)
--- NOTE | 2024-10-02 18:32 | XCELERA ---
[id number] [email or web address]\[id number]
[2024-10-02] MEDS: PRAVASTATIN SOD 20 MG TAB PO SCH (20:11)
[2024-10-02] MEDS: METOPROLOL SUCC 50MG EXT REL TAB PO SCH (20:11)
[2024-10-02] MEDS: LOSARTAN POTASSIUM 50 MG TAB PO SCH (20:11)
[2024-10-02] MEDS ORDERED: MELATONIN 3 MG TAB PO PRN (20:37)
[2024-10-03] MEDS: LEVOTHYROXINE SODIUM 125 MCG TABLET PO SCH (05:33)
[2024-10-03 06:26] LABS: ANTI-Xa, UFH(UnfractionatedHep 0.51 IU/ml (0.3-0.7)
[2024-10-03] MEDS: hydroCHLOROthiazide 25 MG TAB PO SCH (08:00)
[2024-10-03] MEDS: buPROPion XL 150 MG TABCR PO SCH (08:00)
--- NOTE | 2024-10-03 23:34 | Hospitalist Progress Note ---
Date of Service October 03, 2024 Assessment & Plan (1) Acute saddle pulmonary embolism: Plan: Previous pulmonary embolism in 2013. Current pulmonary embolism provoked with recent right leg immobilization from a distal right tibial fracture. PESI score 98 - intermediate risk with right heart strain on CT, troponin normal, BNP pending, echo pending Discussed with triple drum operator on admission and recommended IV heparin alone and admission to PCU - consult pulmonology Given size of clot we will place patient on bedrest yesterday, today oob to chair patient conitnues to require 3 liters nasal cannula, (2) Abnormal CT of the chest: Plan: CT concerning for possible acute cholecystitis however no right upper quadrant pain on exam, ultrasound ordered by ER currently pending. Low suspicion of acute cholecystitis on exam. (3) Fracture of distal end of right tibia: Plan: Per previous orthopedic note continue in a high tide boot and weight-bear as tolerated in the boot Plan VTE prophylaxis - IV heparin Diet - heart healthy Disposition - admit to PCU Admission and Anticipated Discharge Date Admission Date: October 02, 2024 Subjective Patient reports no new symptoms Physical Exam Constitutional: WD/WN, vitals as above Respiratory: normal respiratory effort, lungs clear to auscultation Cardiovascular: RRR, no murmur, no edema Gastrointestinal (Abdomen): normal bowel sounds, soft, nontender, no hepatosplenomegaly Musculoskeletal: Right leg in boot not removed Skin: no rashes, warm and dry Neurologic: moves all extremities and awake; not confused Psychiatric: A+Ox3, euthymic affect Results & Data Results & Data Vital Signs (Past 12 Hours) Vital Signs Temp Pulse Resp BP Pulse Ox O2 Del Method O2 Del Method 10/03/24 19:49 36.6 C 75 16 134/78 95 Nasal Cannula 10/03/24 15:37 36.5 C 80 19 118/69 95 Nasal Cannula 10/03/24 12:09 Room Air 10/03/24 11:45 36.5 C 81 18 123/72 96 Nasal Cannula O2 Flow Rate 10/03/24 19:49 3 10/03/24 15:37 3 10/03/24 12:09 10/03/24 11:45 3 PG Care Time/CCT Total # of Minutes Spent Total Time Spent with Patient: Total time spent is greater than 50% in coordination of care (as documented) at patient's floor/unit and/or counseling patient: Coding Level of Care Code 73149 SUB INP/OBS CARE 350MIN Diagnoses Acute saddle pulmonary embolism, unspecified whether acute cor pulmonale present I26.92 Acute cor pulmonale presence: unspecified Abnormal CT of the chest R93.89 Fracture of distal end of right tibia S82.301A Encounter type: initial encounter Fracture morphology: unspecified fracture morphology Fracture type: closed (1) Acute saddle pulmonary embolism Acute cor pulmonale presence: unspecified Qualified Code(s): I26.92 - Saddle embolus of pulmonary artery without acute cor pulmonale (3) Fracture of distal end of right tibia Encounter type: initial encounter Fracture morphology: unspecified fracture morphology Fracture type: closed Qualified Code(s): S82.301A - Unspecified fracture of lower end of right tibia, initial encounter for closed fracture
[2024-10-04 07:14] LABS: Hemoglobin 14.6 g/dl (14.0-18.0); Mean Corpuscular Hgb Conc 33.2 g/dL (32.0-36.0); Mean Corpuscular Volume 90.5 fL (80.0-100.0); Mean Platelet Volume 11.2 fL (9.4-12.4); Platelet Count 198 K/uL (130-400); RDW Coefficient of Variation 13.1 % (11.5-14.5); Red Blood Count 4.86 M/uL (4.70-6.10); White Blood Count 6.95 K/ul (4.8-10.8)
[2024-10-04 07:34] LABS: ANTI-Xa, UFH(UnfractionatedHep 0.48 IU/ml (0.3-0.7)
[2024-10-04 07:43] LABS: BUN Creatinine Ratio 14.8 (10-20); Calcium 9.2 mg/dl (8.6-10.3); Creatinine Clr Calc Pharmacy 83.9 ml/min; Potassium 3.8 mmol/L (3.5-5.1)
--- NOTE | 2024-10-04 09:44 | Hospitalist Progress Note ---
Date of Service October 04, 2024 Assessment & Plan (1) Acute saddle pulmonary embolism: Plan: Previous pulmonary embolism in 2013. Current pulmonary embolism provoked with recent right leg immobilization from a distal right tibial fracture. PESI score 98 - intermediate risk with right heart strain on CT, troponin normal, BNP pending, echo preserved EF some right heart strain Discussed with automobile locator on admission and recommended IV heparin , oxygen stable, will transition to eliquis 10/04/24 pt ambulating in unit (2) Abnormal CT of the chest: Plan: CT concerning for possible acute cholecystitis however no right upper quadrant pain on exam, ultrasound ordered by ER currently pending. Low suspicion of acute cholecystitis on exam. (3) Fracture of distal end of right tibia: Plan: Per previous orthopedic note continue in a high tide boot and weight-bear as tolerated in the boot Plan VTE prophylaxis - eliquis Diet - heart healthy Admission and Anticipated Discharge Date Admission Date: October 02, 2024 Subjective pt feels anxious about going home recurrent PE, did have fibulae fracture and boot to provoke RLE educated on NOAC, pt agreeable to Eliquis Physical Exam Physical Exam: PT has no complaints feels anxious cardiac is regular lung is clear boot in on right leg Results & Data Results & Data Vital Signs (Past 12 Hours) Vital Signs Temp Pulse Pulse Resp BP Pulse Ox O2 Del Method 10/04/24 08:02 98.1 F 73 19 111/68 97 Nasal Cannula 10/04/24 07:23 71 10/04/24 02:51 97.5 F L 77 16 132/80 96 Nasal Cannula 10/04/24 00:00 78 10/03/24 23:33 97.9 F 80 14 131/77 94 Nasal Cannula O2 Flow Rate 10/04/24 08:02 3 10/04/24 07:23 10/04/24 02:51 3 10/04/24 00:00 10/03/24 23:33 3 Laboratory Results review cbc review chemistry PG Care Time/CCT Total # of Minutes Spent Total Time Spent with Patient: Total time spent is greater than 50% in coordination of care (as documented) at patient's floor/unit and/or counseling patient: Coding Level of Care Code 30731 SUB INP/OBS CARE 3/50MIN Diagnoses Acute saddle pulmonary embolism, unspecified whether acute cor pulmonale present I26.92 Acute cor pulmonale presence: unspecified Abnormal CT of the chest R93.89 Fracture of distal end of right tibia S82.301A Encounter type: initial encounter Fracture morphology: unspecified fracture morphology Fracture type: closed (1) Acute saddle pulmonary embolism Acute cor pulmonale presence: unspecified Qualified Code(s): I26.92 - Saddle embolus of pulmonary artery without acute cor pulmonale (3) Fracture of distal end of right tibia Encounter type: initial encounter Fracture morphology: unspecified fracture morphology Fracture type: closed Qualified Code(s): S82.301A - Unspecified fracture of lower end of right tibia, initial encounter for closed fracture
[2024-10-04] MEDS: APIXABAN 5 MG TABLET PO ONE (12:43)
[2024-10-04] MEDS: INFLUENZA VACC TS2024-25(65y+)/PF (IIV3) 0.5mL Syr IM ONE (12:47)
[2024-10-04] MEDS: APIXABAN 5 MG TABLET PO SCH (20:15)
--- NOTE | 2024-10-05 06:09 | Electrocardiogram Report ---
Test Reason : Blood Pressure : */* mmHG Vent. Rate : 91 BPM Atrial Rate : 91 BPM P-R Int : 200 ms QRS Dur : 86 ms QT Int : 358 ms P-R-T Axes : 55 39 45 degrees QTcB Int : 440 ms Normal sinus rhythm Normal ECG When compared with ECG of 11-Apr-2020 13:05, No significant change Confirmed by James Thompson ([id number]) on 10/05/2024 6:08:37 AM Referred By: REFERRED SELF Confirmed By: James Thompson
[2024-10-05 07:28] VITALS: BP 107/68; RESP 16; TEMP 97.5
[2024-10-05 08:51] VITALS: O2SAT 95
[2024-10-05 09:17] VITALS: PULSE 69
--- NOTE | 2024-10-05 10:43 | Discharge Summary ---
Discharge Summary Date of Service October 05, 2024 Principal Dx & Hospital Course #1 = Principal Diagnosis (1) Acute saddle pulmonary embolism: Previous pulmonary embolism in 2013. Current pulmonary embolism provoked with recent right leg immobilization from a distal right tibial fracture. PESI score 98 - intermediate risk with right heart strain on CT, troponin normal, BNP pending, echo preserved EF some right heart strain Discussed with take up supervisor on admission and recommended IV heparin , oxygen stable, will transition to eliquis 10/04/24 pt ambulating in unit, tolerated transtion to po, does not need oxygen at dc (2) Abnormal CT of the chest: CT concerning for cholecystitis however no right upper quadrant pain on exam, no LFT changes, ultrasound cholelithiaiss without cholecystitis. (3) Fracture of distal end of right tibia: Per previous orthopedic note continue in a high tide boot and weight-bear as tolerated in the boot Notes For Next Care Provider PT only has starter one month of Eliqius, out of pocket expense 100/month, not sure if samples or alternative that maybe more cost effective Additionally could not find confirmed Cardiac or Cerebrovascular disease, may discuss stopping aspirin while on Eliquis( but eliquis maybe life long) Admission HPI Per Admitting Provider Benton Chaidez is a 69 year old male who presents to the ER with shortness of breath. He reports waking up at 3 AM this morning diaphoretic with significant shortness of breath on exertion. No chest pain. No fever, chills, cough. He felt well yesterday. He has a history of pulmonary embolism around 10 years ago following trauma. He recently fractured his distal tibia on September 24 and placed in a walking boot without anticoagulation. Per previous orthopedic notes he is weightbearing as tolerated on this leg. Discharge Exam clear lungs, no respiratory distress in room and updated on dc Discharge Plan Discharge Items Patient Disposition: Home - Self-Care Reason For Visit: SADDLE PULMONARY EMBOLUS Discharge Diagnosis: Pulmonary embolism Activity: Per Instructions section Activity Comment: slowly increase activity Non-emergency contact: Primary Care Provider Call non-emergency contact if: your symptoms worsen Follow-up/Referrals: Nasir Maldonado [Primary Care Provider] - 10/12/24 1:00 pm (Hospital follow up on October 12 at 1 pm with an arrival time of 12:45 pm.) Diet: Heart Healthy Addtl Attending Provider Instructions: Medication Instructions: Your condition is typically treated with an anticoagulant. Anticoagulants will thin your blood to help prevent new clots. * You should take her medication exactly as directed. * Never skip a dose. * Never take a double dose. If you miss a dose, take it as soon as you remember. Call your Primary Care doctor if you experience any of the following: * Swelling or Pain in your leg * Sudden, continuous pain deep in a muscle * Pain that worsens when you are active or when you stand still for a long time * Chest Pain * Sudden Shortness of Breath * Rapid or pounding heart beat * Fainting * Dizziness * Cough with blood or bloody sputum * Sweating more than normal * Bruises * Heavy or uncontrolled bleeding * Blood in your urine, stool or vomit * Black or tarry stools Caring for Your Self at Home: * Avoid sitting, standing or lying down for long periods without moving your legs and feet * When traveling by car, stop to get out and move around at least once every 3 hours * On long airplane, train or bus rides, get up and move around when possible * If you can't get up, wiggle your toes and tighten your calves to keep your blood moving Follow Up: It is important for you to keep your follow up appointments with your medical provider. Pending Studies at Discharge: No Stand-Alone Forms: My [facility], Smoking Cessation Medications and DC Order Prescriptions: New Eliquis 5 mg (74 tabs) tablets,dose pack 5 mg PO BID Qty: 74 0RF Rx Instructions: this is starter RX Continued potassium chloride 10 mEq tablet extended release 10 meq PO QAM Mounjaro 15 mg/0.5 mL Pen Injector 15 mg SUBCUT WK Rx Instructions: Friday Centrum Minis Men 50 Plus [id number] mcg Tablet 1 tab PO DAILY metoprolol succinate 50 mg tablet extended release 24 hr 50 mg PO HS levothyroxine 125 mcg tablet 125 mcg PO DAILYBB pravastatin 20 mg tablet 20 mg PO HS hydrochlorothiazide 25 mg tablet 25 mg PO QAM losartan 100 mg tablet 100 mg PO HS bupropion HCl 150 mg tablet extended release 24 hr 150 mg PO QAM Held aspirin 81 mg Tablet,Delayed Release (Dr/Ec) 81 mg PO QAM Hold Instructions: Provider's Order Discharge Orders: Discharge Order (Routine); Ordered 10/05/24 Ordered By: Marcos Lindsey Admission Data Admit Date/Time: 10/02/24 10:49 Attending Provider: Marcos Lindsey Admit Provider: Chente Lindsey Primary Care Provider: Nasir Maldonado Other Providers: Socrates Womack Other Interventions: Discharge Summary Assessment (RN) Last Done: 10/05/24 09:44 Hospital Stay Data Consultations 10/02/24 12:15 Consult Pulmonology Routine Diagnostic Imagining Performed 10/02/24 08:42 CT angio chest PE protocol Stat 10/02/24 10:03 US gallbladder Stat US venous doppler LE RT Stat Pending Results Patient Have Any Pending Studies at Discharge: No Discharge Instructions Given to Patient (Per Discharging Provider) Medication Instructions: Your condition is typically treated with an anticoagulant. Anticoagulants will thin your blood to help prevent new clots. * You should take her medication exactly as directed. * Never skip a dose. * Never take a double dose. If you miss a dose, take it as soon as you remember. Call your Primary Care doctor if you experience any of the following: * Swelling or Pain in your leg * Sudden, continuous pain deep in a muscle * Pain that worsens when you are active or when you stand still for a long time * Chest Pain * Sudden Shortness of Breath * Rapid or pounding heart beat * Fainting * Dizziness * Cough with blood or bloody sputum * Sweating more than normal * Bruises * Heavy or uncontrolled bleeding * Blood in your urine, stool or vomit * Black or tarry stools Caring for Your Self at Home: * Avoid sitting, standing or lying down for long periods without moving your legs and feet * When traveling by car, stop to get out and move around at least once every 3 hours * On long airplane, train or bus rides, get up and move around when possible * If you can't get up, wiggle your toes and tighten your calves to keep your blood moving Follow Up: It is important for you to keep your follow up appointments with your medical provider. Total Time Total Time Spent Total Time Spent (In Minutes): It required greater than 30 minutes to prepare this patient for discharge. Coding Level of Care Code 94934 INP/OBS DISCH >30 MIN Diagnoses Acute saddle pulmonary embolism, unspecified whether acute cor pulmonale present I26.92 Acute cor pulmonale presence: unspecified Abnormal CT of the chest R93.89 Fracture of distal end of right tibia S82.301A Encounter type: initial encounter Fracture morphology: unspecified fracture morphology Fracture type: closed
[2024-10-05 22:42] LABS: PTT LA Screen 37 sec (<=40)
== END 2024-10-05 10:20 | disposition home or self-care (01) | DRG 176 ==
LOC: ED 07:09 → SUATTDRO 10:49 → 2E 10:49

== ENCOUNTER 2024-11-28 13:10 | Inpatient (IN) ==
--- OUTSIDE RECORDS SUMMARY | 2024-11-28 13:16 | External Medical Summary | Continuity of Care Document ---
Author Name Unknown Organization [facility] [id number] [place] [address] [id number] Care Team Providers Care State Federal Relations Deputy Director Name Role Phone Nasir Maldonado Primary Care Physician [phone] Encounter [facility] [id number] Date(s): 11/17/24 - 11/17/24 [facility] [address] [place] [address] [address] [id number] [address] [phone] Encounter Diagnosis Other primary thrombophilia(Final) - Essential (primary) hypertension(Final) - Hypothyroidism, unspecified(Final) - Type 2 diabetes mellitus without complications(Final) - Encounter for general adult medical examination without abnormal findings(Final) - Reaction to severe stress, unspecified(Final) - Malignant melanoma of skin, unspecified(Final) - Encounter for screening for malignant neoplasm of colon(Final) - Encounter for screening for malignant neoplasm of prostate(Final) - Discharge Disposition: Home or Self Care Attending Physician: MD Maldonado Michael P Referring Physician: MD Maldonado Michael P Encounter Type: Clinic Allergies, Adverse Reactions, Alerts Substance Criticality Severity Reaction Reaction Severity Status lisinopril cough Active Immunizations Given and Recorded Vaccine Date Status Refusal Reason influenza virus vaccine, inactivated 10/04/24 Mitchell rded influenza virus vaccine, inactivated 08/01/22 Give n influenza virus vaccine, inactivated 07/16/21 Give n influenza virus vaccine, inactivated 05/09/20 Give n influenza virus vaccine, inactivated 04/25/20 Mitchell rded influenza virus vaccine, inactivated 11/02/19 Give n SARS-CoV-2 mRNA-1273 (6y+ bivalent) 10/14/22 Recor ded pneumococcal 20-valent conjugate vaccine 08/01/22 Given SARS-CoV-2 (COVID-19) mRNA-1273 vaccine 01/31/22 R ecorded SARS-CoV-2 (COVID-19) mRNA-1273 vaccine 06/30/21 R ecorded SARS-CoV-2 (COVID-19) mRNA-1273 vaccine 1 11/16/20 Recorded SARS-CoV-2 (COVID-19) mRNA-1273 vaccine 10/19/20 R ecorded SARS-CoV-2 (COVID-19) ChAdOx1 vaccine 10/24/20 Rec orded zoster vaccine, inactivated 05/09/20 Given zoster vaccine, inactivated 11/02/19 Given zoster vaccine live 10/22/16 Given tetanus toxoids-diphtheria, Td (Adult) 10/22/16 Gi boubacar tetanus/diphtheria/pertuss, acel (Tdap) 12/29/06 R ecorded measles/mumps/rubella virus vaccine 05/17/02 Recor ded 1Result Comment: [facility] ([place]) Medications buPROPion 150 mg/24 hours (XL) oral tablet, extended release Start: 08/19/24 8:34:00 AM EST, 1 tab, PO, Daily, Disp# 90 tab, Refills: 4, Pharmacy: [id number] Start Date: 08/19/24 Status: Ordered Quantity: 90.0 Unit: tab Repeat number: 5 Eliquis 5 mg oral tablet Start: 10/12/24 1:46:00 PM EST, 1 tab, PO, bid, Disp# 60 tab, Refills: 3, Pharmacy: [id number] Start Date: 10/12/24 Stop Date: 02/09/25 Status: Ordered Quantity: 60.0 Unit: tab Repeat number: 4 hydroCHLOROthiazide 25 mg oral tablet Start: 08/19/24 8:14:00 AM EST, 1 tab, PO, Daily, Disp# 90 tab, Refills: 4, Pharmacy: [id number] Start Date: 08/19/24 Status: Ordered Quantity: 90.0 Unit: tab Repeat number: 5 levothyroxine 125 mcg (0.125 mg) oral tablet Start: 03/22/24 5:43:00 PM EDT, 1 tab, PO, Daily, Disp# 90 tab, Refills: 4, Pharmacy: [id number] Start Date: 03/22/24 Status: Ordered Quantity: 90.0 Unit: tab Repeat number: 1 losartan 100 mg oral tablet Start: 08/19/24 8:13:00 AM EST, 1 tab, PO, Daily, Disp# 90 tab, Refills: 4, Pharmacy: [id number] Start Date: 08/19/24 Status: Ordered Quantity: 90.0 Unit: tab Repeat number: 5 Metoprolol Succinate ER 50 mg oral tablet, extended release Start: 08/19/24 8:14:00 AM EST, 1 tab, PO, Daily, Disp# 90 tab, Refills: 4, Pharmacy: [id number] Start Date: 08/19/24 Status: Ordered Quantity: 90.0 Unit: tab Repeat number: 5 Mounjaro 15 mg/0.5 mL subcutaneous solution Start: 07/19/24 12:29:00 PM EST, 0.5 mL, subQ, q7days, Disp# 6 mL, Refills: 4, Pharmacy: [id number] Start Date: 07/19/24 Status: Ordered Quantity: 6.0 Unit: mL Repeat number: 1 Potassium Chloride (Gmk-Hurc-Ojt 10) 10 mEq oral tablet, extended release Start: 08/19/24 8:14:00 AM EST, 1 tab, PO, Daily, Disp# 90 tab, Refills: 4, Pharmacy: [id number] Start Date: 08/19/24 Status: Ordered Quantity: 90.0 Unit: tab Repeat number: 5 pravastatin 20 mg oral tablet Start: 08/19/24 8:14:00 AM EST, 1 tab, PO, Daily, Disp# 90 tab, Refills: 4, Pharmacy: [id number] Start Date: 08/19/24 Status: Ordered Quantity: 90.0 Unit: tab Repeat number: 5 Problem List Condition Confirmation Course Effective Dates Status Health Status Informant 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 Peripheral artery aneurysm Confirmed Active Cardiomegaly Confirmed Active Cervical osteoarthritis Confirmed Active OA (osteoarthritis) of neck Confirmed Active Deep venous thrombosis Confirmed Active DDD (degenerative disc disease) Confirmed Active Ectasia of artery Confirmed Active Anticoagulated Confirmed Active Dysplastic nevus 1 Confirmed 11/18/12 Active Family history of colorectal cancer 2 Confirmed 12/23/13 Active Family hx of aortic aneurysm Confirmed Active GERD Confirmed Active History of melanoma excision Confirmed Active History of pneumonia Confirmed Active Hernia, umbilical, with gangrene Confirmed Active History of dysplastic nevus Confirmed Active Hypercoagulability state Confirmed Active Hyperlipidemia Confirmed Active HYPERTENSION. Confirmed Active Hypothyroidism Confirmed Active Lumbar and sacral osteoarthritis Confirmed Active Malignant melanoma Confirmed Active Morbid obesity Confirmed Active Multiple benign nevi Confirmed Active CINDA (obstructive sleep apnea) 3 Confirmed Active Health care maintenance Confirmed Active Polyp 4 Confirmed Active Primary osteoarthritis of left hip Confirmed Active Pulmonary embolism Confirmed Active Other seborrheic keratosis 5 Confirmed 08/19/24 Active Type II diabetes mellitus Confirmed Active Venous stasis Confirmed Active Vitamin D deficiency Confirmed Active 1Low Back 2DAD at age 75 3borderline 07/03 42x2mm- hard palate 5Added per Digital Solution Architect Review-JW-08/26/24 Procedures Procedure Date Related Diagnosis Body Site Status Community acquired pneumonia 1 10/23/18 Completed Admission to [facility] 2 01/02/18 Completed Chest X-ray 3 01/02/[address] angiography of chest with contrast 4 01/02/18 Completed MRI of knee 5 07/10/17 Completed Colonoscopy 6 03/03/17 Completed Excision 11/07/16 Completed Electrodesiccation with curettage 7 10/24/16 Completed Knee 8 08/01/16 Completed Ultrasound scan of thyroid 12/28/13 Completed left knee eval-[facility] 10/13/12 Completed Colonoscopy 02/19/10 Completed polysomnography 07/04/[address] 02/24/07 Completed Stress Echo 04/2003 Completed Amputated finger 9 Comple frandy Echocardiogram abnormal 10 Completed Malignant melanoma 11 Com pleted Total hip replacements 12 Completed umbilical hernia Complete d wisdom teeth extraction C ompleted 1Hospitalized 19/07/2018-disch 01/04/2018 pneumonia and acute bronchitis 3Cardiomegaly. No other convincing evidence of acute cardiopulmonary disease 4no evidence of pulmonary embolus Small parenchymal inflitrate left base 5[place] ordered - No evidence of meniscal tear. Extensive mucoid degeneration of the anterior cruciate ligament with associated ganglion cysts. Mild medial joint compartment chondrosis. Mild chondromalacia patella 6Diverticulosis in the sigmoid colon and in the ascending colon. Non-bleeding internal hemorrhoids. Small lipoma in the sigmoid colon. The examined portion of the ileum was normal. No specimens collected. 7left posterior shoulder 8inj for pain/left knee 9Left index finger tip due to power saw 10Technically difficult study due to patient body habitus; Enhanced with Definity contrast per lab protocol for better endocardial definition. Normal LV size and systolic function with no regional wall motion abnormalities. Ejection fraction 65%. No left ventricular hypertrophy. Normal diastolic function. Normal E/e' ratio of 7, suggesting normal left atrial filling pressures. Dilated right ventricle with normal systolic function. Hypokinesis of the RV apex. TAPSE is normal (2.1 cm). 11Resection 12Bilateral Results Laboratory List Name Date Basic Metabolic Panel (BASIC METAB PANEL ) 11/17/24 Hemoglobin A1C (HEMOGLOBIN, A1C) 11/17/24 PSA Free (FREE PSA) 11/17/24 PSA Reflex to FREE PSA (PSA REFLEX TO FR EEPSA) 11/17/24 Most recent to oldest [Reference Range]: 1 eGFR CKD-EPI [>60 mL/min/1.73 m2] 72 mL/ min/1.73 m2 1 (11/17/24 8:23 AM) Estimated Average Glucose 126 mg/dL 2 (11/17/24 8:23 AM) PSA Screen [<4.51 ng/mL] 4.73 ng/mL *HI* (11/17/24 8:23 AM) Estimated CrCl 80.70 mL/min (11/17/24 12:06 PM) Anion Gap [5-14 mmol/L] 5 mmol/L (11/17/24 8:23 AM) BUN [7-20 mg/dL] 15 mg/dL (11/17/24 8:23 AM) Ca [8.4-10.2 mg/dL] 9.3 mg/dL (11/17/24 8:23 AM) Cl- [96-107 mmol/L] 100 mmol/L (11/17/24 8:23 AM) HCO3 [22-30 mmol/L] 32 mmol/L *HI* (11/17/24 8:23 AM) Cret [0.70-1.30 mg/dL] 1.11 mg/dL (11/17/24 8:23 AM) HbA1c [4.0-6.0 %] 6.0 % (11/17/24 8:23 AM) Glu [74-106 mg/dL] 124 mg/dL *HI* (11/17/24 8:23 AM) K [3.5-5.1 mmol/L] 4.4 mmol/L (11/17/24 8:23 AM) Na [137-145 mmol/L] 137 mmol/L (11/17/24 8:23 AM) PSA Free 1.54 ng/mL (11/17/24 8:23 AM) PSA % Free 33 % 3 (11/17/24 8:23 AM) 1Result Comment: Testing Performed By: Dept of Pathology [facility], [address] [place] [address] 2Result Comment: Testing Performed By: Dept of Pathology [facility], [address] [place] [address] 3Result Comment: [facility] uses the Carla Free PSA electrochemiluminescent immunoassay method in conjunction with the Carla PSA electrochemiluminescent immunoassay method to determine the free PSA percentage. Values obtained with different assay methods should not be used interchangeably. The free PSA percentage is an aid in distinguishing prostate cancer from benign prostatic conditions in men age 50 and older with a total PSA between 4 and 10 ng/mL and negative digital rectal examination findings. Prostatic biopsy is required for the diagnosis of cancer. In patients with total PSA concentrations of 4-10 ng/mL, the probability of finding prostate cancer on needle biopsy by age in years is: %fPSA 50-59y 60-69y >69y 0 - 10% 49% 58% 65% 11 - 18% 27% 34% 41% 19 - 25% 18% 24% 30% >25% 9% 12% 16% Other factors may help determine the actual risk of prostate cancer in individual patients. Social History Social History Type Response Smoking Status Never smoked cigaret pati Sex Male Sex Representation Male (finding) Patient Care team information Care Team Personnel Name: MD Justin Jonathan D Position: Physician - Family Med Member Role: Lifetime Relationship Address: [address] [place] [address] [employer]: [phone] Name: MD Maldonado Michael P Position: Physician - Family Med Member Role: Primary Care Provider Address: [address] [place] [address] [employer]: [phone] Name: KULWANT Ellison Lynn Position: Physician Back Hand Exempt - Vasc Surg Member Role: Lifetime Relationship [address]: [address] [place] [address] [employer]: [phone] Care Team Related Persons Name: NANO CARR Name: NANO CARR Name: NANO CARR Insurance Providers Guarantor name: KARIME CARR Health Plan Information #: 1 Payer: [employer] Member Number: [id number] Policy Number: NA Group Number: [id number] Health Plan Information #: 2 Payer: [employer] Member Number: [id number] Policy Number: NA Group Number: [id number]
--- OUTSIDE RECORDS SUMMARY | 2024-11-28 13:16 | External Medical Summary | Continuity of Care Document ---
Author Name Unknown Organization [place] [id number] [address] [place] [address] [phone] Care Team Providers Care Lease Examiner Name Role Phone Nasir Maldonado Primary Care Physician [phone] [facility] [id number] Date(s): 11/18/24 - 11/18/24 [facility] 0 [facility] [id number] [id number] [phone] Encounter Diagnosis Deep venous thrombosis(Discharge Diagnosis) - 11/16/24 Health care maintenance(Discharge Diagnosis) - 11/16/24 Morbid obesity(Discharge Diagnosis) - 11/16/24 Malignant melanoma(Discharge Diagnosis) - 11/16/24 Type II diabetes mellitus(Discharge Diagnosis) - 11/16/24 DVT of popliteal vein(Discharge Diagnosis) - 11/16/24 PE (pulmonary thromboembolism)(Discharge Diagnosis) - 11/16/24 HYPERTENSION.(Discharge Diagnosis) - 11/16/24 Elevated PSA(Discharge Diagnosis) - 11/18/24 Acute embolism and thrombosis of unspecified deep veins of unspecified lower extremity(Final) - Encounter for general adult medical examination without abnormal findings(Final) - Essential (primary) hypertension(Final) - Malignant melanoma of skin, unspecified(Final) - Morbid (severe) obesity due to excess calories(Final) - Acute embolism and thrombosis of unspecified popliteal vein(Final) - Other pulmonary embolism without acute cor pulmonale(Final) - Type 2 diabetes mellitus without complications(Final) - Discharge Disposition: Home or Self Care Attending Physician: MD Maldonado Michael P Encounter Type: Clinic Allergies, Adverse Reactions, Alerts Substance Criticality Severity Reaction Reaction Severity Status lisinopril cough Active Assessment and Plan Extracted from: Title:Office Visit Note Author:MD Joel, Fran kelly P Date:11/18/24 1. Deep venous thrombosis STATUS: [X= specifies status] Previous visit: New DX- Recent DVT / PE recurrence in 09/30/2024 -Chronic- at goal: -Chronic- progressive: -Acute NEW DX: xx DATA: Labs/Tests reviewed. GOAL: Maintain/improve stability. PLAN: Continue current monitoring. Cont Eliquis BID ---doing ok . 2. Health care maintenance COVID vax- 1 year ago ---discussed rec to get anf he will do this DM Eye exam Urine Microal./ Cr ratio Falls eval FALLS RISK ASSESSMENT (65 years and older): 1. Have you fallen 2 or more times in the past 12 months? ____ NO ___x__ YES .History: fell and broke leg SEP 24, 2024 when stepped out of truck on ice ---FX Right leg--nondisplaced right tibial fracture 2. Have you fallen once with an injury in the past 12 months? ____ NO __X___ YES .History: URINARY INCONTINENCE ASSESSMENT: *Source: http://www.24Symbols.com/uzgrbhz-igereumzczcb-jnw/news/20060106/9-honggblmf-cckecit- incontinence 1. During the last three months, have you leaked urine (even a small amount)? __x__ NO [If NO, END]. YES [If YES, then screen with Questions 2 and 3]. 3. HYPERTENSION. STATUS: [X= specifies status] Previous visit: Stressful day but overall his BP has been well controlled at home. His BP 10 days ago at was 114/ 64. He did not take his HCTZ this am yet. Intentionally reduce salt. Cont the same but monitor BP more often. If SBP is running consistently > 140 and HR is > 70 then he may increase to 1.5 tabs of Metoprolol XL. Report in by portal in a month. BP at home = 130-140/75-80, HR 80 my exam. At home his HR runs 70s. NB He did have salty food yesterday. -Chronic at goal : x -Chronic progressive: -Acute NEW DX: DATA: Labs/Tests reviewed. BP= 116/78 at home he runs GOAL: Maintain/improve stability. PLAN: Continue current monitoring. Takes HCTZ in am and that has helped 4. Malignant melanoma STATUS: [X= specifies status] Previous visit: Referred to Derm -Chronic- at goal: X -Chronic- progressive: -Acute NEW DX: DATA: Labs/Tests reviewed. GOAL: Maintain/improve stability. PLAN: Continue current monitoring. FU'd Derm---FU annually . 5. Morbid obesity STATUS: [X= specifies status] Previous visit: -Chronic- NOT at goal: X -Chronic- progressive: -Acute NEW DX: DATA: Labs/Tests reviewed. BMI> 40. --wt down 4 pounds GOAL: Maintain/improve stability. PLAN: Continue current monitoring. Discussed use of Mounjaro for T2DM and wt loss. Bupropion has helped to supress appetite . 6. DVT of popliteal vein STATUS: [X= specifies status] Previous visit: DVT wit PE in -Chronic- Not at goal: X -Chronic- progressive: -Acute NEW DX: DATA: Labs/Tests reviewed. GOAL: Maintain/improve stability. PLAN: Continue current monitoring. COnt Eliquis . 7. PE (pulmonary thromboembolism) STATUS: [X= specifies status] Previous visit: PE occurred on -Chronic- at goal: x -Chronic- progressive: -Acute NEW DX: DATA: Labs/Tests reviewed. GOAL: Maintain/improve stability. PLAN: Continue current monitoring. Cont Eliquis x mcc--off ASA. . 8. Type II diabetes mellitus STATUS: Chronic at goal. XPrevious visit: Increased Mounjaro to 15 mg weekly. A1C 6.2 down from 6.5 Cont Mounjaro at 15 mg. Consider adding: Bupropion XL for wt loss and stress mgmt--added. A1C = 6.Jul; Prev A1C = 5.9 down from 6.2; WT = same. A1C in 3 mos Mounjaro dosing schedule: Month 1: 2.5 mg SQ once a week Month 2: 5 mg SQ once a week Month 3: 7.5 mg SQ once a week (maintenance dose?) Month 4: 10 mg SQ once a week (maintenance dose?) Month 5: 12.5 mg SQ once a week (maintenance dose?) Month 6: 15 mg SQ once a week (maintenance dose?)-- tolerating well. *Inject into abd, thigh or upper arm; rotate sites with each dose---reviewed. *Admin at any time of day with or W/O meals DATA: Labs/Tests reviewed. A1C = 6.0 stable GOAL: Maintain/improve stability. PLAN: Continue current monitoring. Cont the wt loss and Mounjaro---diet to lose wt 9. Elevated PSA STATUS: [X= specifies status] Previous visit: NEW -Chronic- at goal: -Chronic- progressive: -Acute NEW DX: X DATA: Labs/Tests reviewed. PSA= 4.73 but having extreme hard stools GOAL: Maintain/improve stability. PLAN: Continue current monitoring. Add Miralax and repeat PSA in 3 mos. If elevated then refer to Urology. . Summary: Medications: reviewed/changed/refilled _ Completed Results: _ Reviewed Labs: 6 mos: Labs ordered for today: PSA, A1C, BMP, done ALso had COLO ordered-- scheduled and then broke leg he will call to reschedule Follow up visit: Return to clinic: _ 3 months- 4 mos Other activities completed this visit: *Education provided (discussion, questions, etc) _ Discussed: _ Mounjaro and exercise and diet for wt loss. May reduce risk for clots *Reviewed follow-up for ongoing health maintenance: X *Reviewed past visit notes, previous and current lab results, recent testing, and visits with other providers: X *Coordinate care: Primary care and _ Time spent: Pre-visit planning (min): _ 11 Tyij-ey-yisv visit (min): _ 20 Total visit time (min): _ 31 Immunizations Given and Recorded Vaccine Date Status [...] virus vaccine 05/17/02 Recor ded 1Result Comment: [facility] ([place]) Medications buPROPion 150 mg/24 hours (XL) oral tablet, extended release Start: 08/19/24 8:34:00 AM EST, 1 tab, PO, Daily, Disp# 90 tab, Refills: 4, Pharmacy: [id number] Start Date: 08/19/24 Status: Ordered Quantity: 90.0 Unit: tab Repeat number: 5 Eliquis 5 mg oral tablet Start: 10/12/24 1:46:00 PM EST, 1 tab, PO, bid, Disp# 60 tab, Refills: 3, Pharmacy: [id number] Start Date: 10/12/24 Stop Date: 02/09/25 Status: Ordered Quantity: 60.0 Unit: tab Repeat number: 4 hydroCHLOROthiazide 25 mg oral tablet Start: 08/19/24 8:14:00 AM EST, 1 tab, PO, Daily, Disp# 90 tab, Refills: 4, Pharmacy: [id number] Start Date: 08/19/24 Status: Ordered Quantity: 90.0 Unit: tab Repeat number: 5 levothyroxine 125 mcg (0.125 mg) oral tablet Start: 03/22/24 5:43:00 PM EDT, 1 tab, PO, Daily, Disp# 90 tab, Refills: 4, Pharmacy: [id number] Start Date: 03/22/24 Status: Ordered Quantity: 90.0 Unit: tab Repeat number: 1 losartan 100 mg oral tablet Start: 08/19/24 8:13:00 AM EST, 1 tab, PO, Daily, Disp# 90 tab, Refills: 4, Pharmacy: [id number] Start Date: 08/19/24 Status: Ordered Quantity: 90.0 Unit: tab Repeat number: 5 Metoprolol Succinate ER 50 mg oral tablet, extended release Start: 08/19/24 8:14:00 AM EST, 1 tab, PO, Daily, Disp# 90 tab, Refills: 4, Pharmacy: [id number] Start Date: 08/19/24 Status: Ordered Quantity: 90.0 Unit: tab Repeat number: 5 Mounjaro 15 mg/0.5 mL subcutaneous solution Start: 07/19/24 12:29:00 PM EST, 0.5 mL, subQ, q7days, Disp# 6 mL, Refills: 4, Pharmacy: [id number] Start Date: 07/19/24 Status: Ordered Quantity: 6.0 Unit: mL Repeat number: 1 Potassium Chloride (Bya-Avzp-Ckn 10) 10 mEq oral tablet, extended release Start: 08/19/24 8:14:00 AM EST, 1 tab, PO, Daily, Disp# 90 tab, Refills: 4, Pharmacy: [id number] Start Date: 08/19/24 Status: Ordered Quantity: 90.0 Unit: tab Repeat number: 5 pravastatin 20 mg oral tablet Start: 08/19/24 8:14:00 AM EST, 1 tab, PO, Daily, Disp# 90 tab, Refills: 4, Pharmacy: [id number] Start Date: 08/19/24 Status: Ordered Quantity: 90.0 Unit: tab Repeat number: 5 Mental Status 11/18/24 Barriers to Learning one year None evide nt Mandatory Health Literacy Documentation Yes Health Literacy Communication Barriers N ever Primary Language Malaysian Problem List Condition Confirmation Course Effective Dates [...] 3borderline 07/03 42x2mm- hard palate 5Added per Employment And Claims Aide Review-JW-08/26/24 Diagnosis Diagnosis Type Effective Dates Health Status Clinical Service Informant Type II diabetes mellitus Discharge Diagnosis 11/16/24 Non-Specified Deep venous thrombosis Discharge Diagnosis 11/16/24 Non-Specified Health care maintenance Discharge Diagnosis 11/16/24 Non-Specified HYPERTENSION. Discharge Diagnosis 11/16/24 Non-Specified Malignant melanoma Discharge Diagnosis 11/16/24 Non-Specified Morbid obesity Discharge Diagnosis 11/16/24 Non-Specified DVT of popliteal vein Discharge Diagnosis 11/16/24 Non-Specified PE (pulmonary thromboembolism) Discharge Diagnosis 11/16/24 Non-Specified Elevated PSA Discharge Diagnosis 11/18/24 Non-Specified Procedures Procedure Date Related Diagnosis Body Site Status Community acquired pneumonia 1 10/23/18 Com[facility] 01/02/18 Completed Chest X-ray [...] 11Resection 12Bilateral Results Laboratory List Name Date Microalbumin, Urine, Random (MICROALBUMI N, RD UR) 11/18/24 Most recent to oldest [Reference Range]: 1 Micro Alb (u) [<2.00 mg/dL] 2.56 mg/dL *HI* (11/18/24 10:27 AM) Micro Alb Ratio [<20 ug/mg cret] 19 ug/m g cret (11/18/24 10:27 AM) Creat (u) 132.10 mg/dL 1 (11/18/24 10:27 AM) 1Result Comment: Reference Range for Random Urine Not Established. Vital Signs Most recent to oldest [Reference Range]: 1 Patient Weight 119.5 kg (11/18/24 9:17 AM) Heart Rate 76 bpm (11/18/24 9:17 AM) Respiratory Rate 18 br/min (11/18/24 9:17 AM) Blood Pressure 116/78mmHg (11/18/24 9:17 AM) Cuff Pulse Pressure 38 mmHg (11/18/24 9:17 AM) Social History Social History Type Response Smoking Status Never smoked cigaret pati Sex Male Sex Representation Male (finding) FCM Outpt Note * MD Joel, Nasir P: PERFORM Event Display: [facility]CM Outpt Note Authored Date: [id number] Chief Complaint F/U, had labs completed yesterday, healing from broken leg and blood clots History of Present Illness Most recent visit with Dr. Maldonado: 08/19/2024 * This patient is followed longitudinally for chronic serious medical problems by Dr. Loida Maldonado and colleagues. CC: FU on established problems (status = chronic): T2Dm, HTN, HLD, Hypothyroidism, Morbid Obesity, recurrent PE/ RLE DVT Address new problems (status = acute): Review of Systems Constitutional: No fever, No chills, No fatigue. Respiratory: No shortness of breath, No cough, No wheezing. Cardiovascular: No chest pain, No palpitations. Gastrointestinal: No nausea, No vomiting, No diarrhea, No abdominal pain. Neurologic: No numbness, No tingling, No headache. Physical Exam Vitals & Measurements HR: 76 (Monitored) RR: 18 BP: 116/78 SpO2: 96% WT: 119.5 kg WT: 119.500 kg (Dosing) PHQ2 Data (Data Documented on:11/18/2024 09:16) Emotional health assessment NEGATIVE General: Alert and oriented, No acute distress. HEENT: Eyes WNL, Tympanic membranes are clear, No pharyngeal erythema, No sinus tenderness. Neck: Supple, Non-tender, No jugular venous distention, No lymphadenopathy, No thyromegaly. Respiratory: Lungs are clear to auscultation, Respirations are non-labored, Breath sounds are equal. Cardiovascular: Normal rate, Regular rhythm, No murmur, rubs or gallops. Gastrointestinal: Soft, Non-tender, Non-distended, Normal bowel sounds. Neurologic: Alert, Oriented, No focal deficits. Psychiatric: Cooperative, Appropriate mood & affect. Assessment/Plan 1. Deep venous thrombosis STATUS: [X= specifies status] Previous visit: New DX- Recent DVT / PE recurrence in 09/30/2024 -Chronic- at goal: -Chronic- progressive: -Acute NEW DX: xx DATA: Labs/Tests reviewed. GOAL: Maintain/improve stability. PLAN: Continue current monitoring. Cont Eliquis BID ---doing ok . 2. Health care maintenance COVID vax- 1 year ago ---discussed rec to get anf he will do this DM Eye exam Urine Microal./ Cr ratio Falls eval FALLS RISK ASSESSMENT (65 years and older): 1. Have you fallen 2 or more times in the past 12 months? ____ NO ___x__ YES ….History: fell and broke leg SEP 24, 2024 when stepped out of truck on ice ---FX Right leg--nondisplaced right tibial fracture 2. Have you fallen once with an injury in the past 12 months? ____ NO __X___ YES….History: URINARY INCONTINENCE ASSESSMENT: *Source: http://www.24Symbols.com/usdvfvf-lfzqbambtmep-wmq/news/20060106/2-rrytlhrzu-wkcehyr- incontinence 1. During the last three months, have you leaked urine (even a small amount)? __x__ NO [If NO, END]. YES [If YES, then screen with Questions 2 and 3]. 3. HYPERTENSION. STATUS: [X= specifies status] Previous visit: Stressful day but overall his BP has been well controlled at home. His BP 10 days ago at MD was 114/ 64. He did not take his HCTZ this am yet. Intentionally reduce salt. Cont the same but monitor BP more often. If SBP is running consistently > 140 and HR is > 70 then he may increase to 1.5 tabs of Metoprolol XL. Report in by portal in a month. BP at home = 130-140/75-80, HR 80 my exam. At home his HR runs 70s. NB He did have salty food yesterday. -Chronic at goal : x -Chronic progressive: -Acute NEW DX: DATA: Labs/Tests reviewed. BP= 116/78 at home he runs GOAL: Maintain/improve stability. PLAN: Continue current monitoring. Takes HCTZ in am and that has helped 4. Malignant melanoma STATUS: [X= specifies status] Previous visit: Referred to Derm -Chronic- at goal: X -Chronic- progressive: -Acute NEW DX: DATA: Labs/Tests reviewed. GOAL: Maintain/improve stability. PLAN: Continue current monitoring. FU'd Derm---FU annually . 5. Morbid obesity STATUS: [X= specifies status] Previous visit: -Chronic- NOT at goal: X -Chronic- progressive: -Acute NEW DX: DATA: Labs/Tests reviewed. BMI> 40. --wt down 4 pounds GOAL: Maintain/improve stability. PLAN: Continue current monitoring. Discussed use of Mounjaro for T2DM and wt loss. Bupropion hashelped to supress appetite . 6. DVT of popliteal vein STATUS: [X= specifies status] Previous visit: DVT wit PE in -Chronic- Not at goal: X -Chronic- progressive: -Acute NEW DX: DATA: Labs/Tests reviewed. GOAL: Maintain/improve stability. PLAN: Continue current monitoring. COnt Eliquis . 7. PE (pulmonary thromboembolism) STATUS: [X= specifies status] Previous visit: PE occurred on -Chronic- at goal: x -Chronic- progressive: -Acute NEW DX: DATA: Labs/Tests reviewed. GOAL: Maintain/improve stability. PLAN: Continue current monitoring. Cont Eliquis x mcc--off ASA. . 8. Type II diabetes mellitus STATUS: Chronic at goal. XPrevious visit: Increased Mounjaro to 15 mg weekly. A1C 6.2 down from 6.5 Cont Mounjaro at 15 mg. Consider adding: Bupropion XL for wt loss and stress mgmt--added. A1C = 6.Jul; Prev A1C = 5.9 down from 6.2; WT = same. A1C in 3 mos Mounjaro dosing schedule: Month 1: 2.5 mg SQ once a week Month 2: 5 mg SQ once a week Month 3: 7.5 mg SQ once a week (maintenance dose?) Month 4: 10 mg SQ once a week (maintenance dose?) Month 5: 12.5 mg SQ once a week (maintenance dose?) Month 6: 15 mg SQ once a week (maintenance dose?)-- tolerating well. *Inject into abd, thigh or upper arm; rotate sites with each dose---reviewed. *Admin at any time of day with or W/O meals DATA: Labs/Tests reviewed. A1C = 6.0 stable GOAL: Maintain/improve stability. PLAN: Continue current monitoring. Cont the wt loss and Mounjaro---diet to lose wt 9. Elevated PSA STATUS: [X= specifies status] Previous visit: NEW -Chronic- at goal: -Chronic- progressive: -Acute NEW DX: X DATA: Labs/Tests reviewed. PSA= 4.73 but having extreme hard stools GOAL: Maintain/improve stability. PLAN: Continue current monitoring. Add Miralax and repeat PSA in 3 mos. If elevated then refer to Urology. . Summary: Medications: reviewed/changed/refilled _Completed Results: _Reviewed Labs: 6 mos: Labs ordered for today: PSA, A1C, BMP, done ALso had COLO ordered-- scheduled and then broke leg he will call to reschedule Follow up visit: Return to clinic: _3 months- 4 mos Other activities completed this visit: *Education provided (discussion, questions, etc) _ Discussed: _ Mounjaro and exercise and diet for wt loss. May reduce risk for clots *Reviewed follow-up for ongoing health maintenance: X *Reviewed past visit notes, previous and current lab results, recent testing, and visits with other providers: X *Coordinate care: Primary care and _ Time spent: Pre-visit planning (min): _ 11 Ocae-sg-tibp visit (min): _ 20 Total visit time (min): _ 31 Problem List/Past Medical History Ongoing Anticoagulated Bilateral femoral artery aneurysm Cardiomegaly Cervical osteoarthritis DDD (degenerative disc disease) Deep venous thrombosis Dysplastic nevus Ectasia of artery Family history of colorectal cancer Family hx of aortic aneurysm GERD Health care maintenance Hernia, umbilical, with gangrene History of dysplastic nevus History of melanoma excision History of pneumonia Hypercoagulability state Hyperlipidemia HYPERTENSION. Hypothyroidism Iliac aneurysm Lumbar and sacral osteoarthritis Malignant melanoma Morbid obesity Multiple benign nevi OA (osteoarthritis) of neck CINDA (obstructive sleep apnea) Other seborrheic keratosis Peripheral artery aneurysm Polyp Primary osteoarthritis of left hip Pulmonary embolism Type II diabetes mellitus Venous stasis Vitamin D deficiency Resolved Back pain Cough, unspecified COVID Dizziness Encounter for exam following cancer surgery Left leg swelling Procedure/Surgical History •Community acquired pneumonia| Service Date: 10/23/2018•CT angiography of chest with contrast| Service Date: 01/02/2018•Admission to [facility]| Service Date: 01/02/2018•Chest X-ray| Service Date: 01/02/2018•MRI of knee| Service Date: 07/10/2017•Colonoscopy| Service Date: 03/03/2017•Excision| Service Date: 11/07/2016•Electrodesiccation with curettage| Service Date: 10/24/2016•Knee| Service Date: 08/01/2016•Ultrasound scan of thyroid| Service Date: 12/28/2013•left knee eval-[facility]| Service Date: 10/13/2012•Colonoscopy| Service Date: 02/19/2010•polysomnography| Service Date: 07/04/2009•Chest CT| Service Date: 02/24/2007•Stress Echo| Service Date: 04/2003•wisdom teeth extraction•umbilical hernia•Total hip replacements•Echocardiogram abnormal•Amputated finger•Malignant melanoma Medications apixaban(Eliquis 5 mg oral tablet), 5 mg= 1 tab, PO, bid, 3 refills buPROPion(buPROPion 150 mg/24 hours (XL) oral tablet, extended release), 150 mg= 1 tab, PO, Daily, 4 refills hydroCHLOROthiazide(hydroCHLOROthiazide 25 mg oral tablet), 1 tab, PO, Daily, 4 refills levothyroxine(levothyroxine 125 mcg (0.125 mg) oral tablet), 1 tab, PO, Daily losartan(losartan 100 mg oral tablet), 1 tab, PO, Daily, 4 refills metoprolol(Metoprolol Succinate ER 50 mg oral tablet, extended release), 1 tab, PO, Daily, 4 refills potassium chloride(Potassium Chloride (Oba-Hcsu-Dcd 10) 10 mEq oral tablet, extended release), 1 tab, PO, Daily, 4 refills pravastatin(pravastatin 20 mg oral tablet), 1 tab, PO, Daily, 4 refills tirzepatide(Mounjaro 15 mg/0.5 mL subcutaneous solution), 0.5 mL, subQ, q7days Allergies lisinopril cough Social History Smoking Status Never smoked cigarettes Alcohol Type:Beer Frequency:1-2 times per week Employment/School Status:Employed Description:Owns a construction business Work hazards:Heavy lifting/twisting, Loud noises, Repetitive motion Exercise - Occasional exercise Home/Environment Lives with:Children, Spouse Living situation:Home/Independent Alcohol abuse in household:No Substance abuse in household:No Smoker in household:No Nutrition/Health Type of diet:Calorie restricted Sexual Sexually active:Yes Current partners:1 Substance Abuse - Denies Substance Abuse Tobacco - Denies Tobacco Use Intake (IView) Smoking History Cigarette smoker: Never smoked cigarettes Tobacco Product Use: Never used other tobacco products Family History Alive and well: Son and Son. Aneurysm: Mother. Aortic aneurysm..: Mother. COPD: Mother. Colon cancer..: Father. HTN (hypertension): Brother. Heart attack: Mother. Heart disease: Sister. Pacemaker rhythm: Sister. Stroke: PGF. Health Status Family Member(s) Family Member(s) Relationship: Mother, Name: , Age: 77 Years, Cause: COPD Relationship: Father, Name: , Age: 75 Years Immunizations Vaccine Date Status influenza virus vaccine, inactivated 10/04/2024 Recorded SARS-CoV-2 mRNA-1273 (6y+ bivalent) 10/14/2022 Recorded influenza virus vaccine, inactivated - Not Given Comments : Contraindicated - Do not give Duplicate order pneumococcal 20-valent conjugate vaccine - Not Given Comments : Contraindicated - Do not give Duplicate order influenza virus vaccine, inactivated 08/01/2022 Given pneumococcal 20-valent conjugate vaccine 08/01/2022 Given SARS-CoV-2 (COVID-19) mRNA-1273 vaccine 01/31/2022 Recorded influenza virus vaccine, inactivated 07/16/2021 Given SARS-CoV-2 (COVID-19) mRNA-1273 vaccine 06/30/2021 Recorded SARS-CoV-2 (COVID-19) mRNA-1273 vaccine 11/16/2020 Recorded Comments : [facility] ([place] SARS-CoV-2 (COVID-19) ChAdOx1 vaccine 10/24/2020 Recorded SARS-CoV-2 (COVID-19) mRNA-1273 vaccine 10/19/2020 Recorded influenza virus vaccine, inactivated 05/09/2020 Given zoster vaccine, inactivated 05/09/2020 Given influenza virus vaccine, inactivated 04/2020 Recorded zoster vaccine, inactivated 11/02/2019 Given influenza virus vaccine, inactivated 11/02/2019 Given zoster vaccine live 10/22/2016 Given tetanus toxoids-diphtheria, Td (Adult) 10/22/2016 Given tetanus/diphtheria/pertuss, acel (Tdap) 12/29/2006 Recorded measles/mumps/rubella virus vaccine 05/17/2002 Recorded Recommendations Health Maintenance Pending (in the next year) OverDue Kidney Health Evaluation due 09/01/13 and every 366 day Due Diabetic Eye Exam due 09/29/24 and every 366 day Adult Social Determinants of Health Screening due 11/18/24 Unknown Frequency Falls Plan of Care due 11/18/24 Unknown Frequency Seasonal COVID 19 Vaccine due 11/18/24 Unknown Frequency Due In Future Adult Influenza Vaccine not due until 02/22/25 and every 1 year Medicare Annual Wellness Visit not due until 08/19/25 and every 1 year Satisfied (in the past 1 year) Satisfied Adult Influenza Vaccine on 10/04/24. Satisfied by MD Justin Jonathan D Body Mass Index on 08/19/24. Satisfied by MADHAVI Carr Kathryn Diabetes Management A1c on 11/17/24. Satisfied by Contributor_system, [id number] Kidney Health Evaluation on 11/17/24. Satisfied by Contributor_system, [employer] Lipid Screening on 08/16/24. Satisfied by Contributor_system, [id number] Medicare Annual Wellness Visit on 08/19/24. Satisfied by MD Joel, Nasir Castro Electronic Signature on File Electronically Reviewed/Signed by: Nasir Maldonado MD Author Signature Dt/Tm:11/18/2024 10:17 AM Department of Family Medicine [facility] Patient Care team information Care Team Personnel Name: MD Justin Jonathan D Position: Physician - Family Med Member Role: Lifetime Relationship Address: [address] [place] [address] Telecom: [phone] Name: MD Maldonado Michael P Position: Physician - Family Med Member Role: Primary Care Provider Address: [address] [place] [address] Telecom: [phone] Name: KULWANT Ellison Lynn Position: Physician Animal Caregiver Exempt - Vasc Surg Member Role: Lifetime Relationship Address: [address] [place] [address] Telecom: [phone] Care Team Related Persons Name: NANO CARR Name: NANO CARR Name: NANO CARR Insurance Providers Guarantor name: KARIME Dung BRUNO Health Plan Information #: 1 Payer: [employer] Member Number: [id number] Policy Number: NA Group Number: [id number] Health Plan Information #: 2 Payer: [employer] Member Number: [id number] Policy Number: NA Group Number: [id number]"
[2024-11-28 13:50] LABS: Basophils # (auto) 0.05 K/uL (0.00-0.20); Basophils % (auto) 0.6 %; Eosinophils # (auto) 0.31 K/uL (0.00-0.50); Eosinophils % (auto) 3.9 %; Hematocrit (blood only) 44.9 % (42.0-52.0); Immature Granulocytes # (auto) 0.02 K/uL (0.01-0.20); Immature Granulocytes % (auto) 0.3 %; Lymphocytes # (auto) 1.35 K/uL (1.20-3.40); Lymphocytes % (auto) 17.1 %; Mean Corpuscular Hemoglobin 30.2 pg (25.0-34.0); Mean Corpuscular Hgb Conc 33.4 g/dL (32.0-36.0); Mean Corpuscular Volume 90.3 fL (80.0-100.0); Mean Platelet Volume 10.7 fL (9.4-12.4); Monocytes # (auto) 0.71 K/uL (0.11-0.59); Neutrophils # (auto) 5.44 K/uL (1.40-6.50); Neutrophils % (auto) 69.1 %; Platelet Count 224 K/uL (130-400); RDW Standard Deviation 42.7 fL (36.4-46.3); Red Blood Count 4.97 M/uL (4.70-6.10); White Blood Count 7.88 K/ul (4.8-10.8)
[2024-11-28 14:03] LABS: Appearance Urine Clear (Clear); Bacteria Urine Automated None Seen (None Seen); Bilirubin Urine Negative (Negative); Blood Urine Trace (Negative); Cast Urine Automated 0-2 /lpf (0-2); Color Urine Dark Yellow; Epithelial Cell Urine Auto 0-2 /hpf (0-2); Glucose Urine UA Negative (Negative); Ketones Urine Negative (Negative); Leukocyte Esterase Urine Negative (Negative); Nitrite Urine Negative (Negative); Protein Urine Negative (Negative); Specific Gravity Urine 1.008 (1.000-1.030); Urobilinogen Urine Negative (Negative); WBC Urine Automated 0-5 /hpf (0-5); pH Urine 5.5 (4.5-7.5)
[2024-11-28 14:14] LABS: BUN Creatinine Ratio 12.6 (10-20); Calcium 9.7 mg/dl (8.6-10.3); Creatinine Clr Calc Pharmacy 70.7 ml/min
[2024-11-28 14:20] LABS: Troponin I High Sensitivity 7.1 pg/ml (0-20)
[2024-11-28 14:34] LABS: Albumin Globulin Ratio 1.2 (0.9-2); Albumin Level 4.1 gm/dl (3.4-5.0); Bilirubin,Total 3.2 mg/dl (0.2-1.0); Globulin 3.3 gm/dl (2.5-4.0); Total Protein 7.4 gm/dl (6.0-8.3)
[2024-11-28] MEDS: OPTIRAY 320 100ml IV ONE (14:48)
--- NOTE | 2024-11-28 14:48 | Emergency Department Note ---
Impression & Plan Abdominal pain, Elevated LFTs, Cholelithiasis ED Provider Note NAME: KARIME CARR AGE: 69 SEX: Male INFORMANT: Patient ED PROVIDER(S): Breezy Conteh MD CHIEF COMPLAINT: Abdominal pain PLAN: Disposition: Admitted Outpatient prescription management: none Referral: None MEDICAL DECISION MAKING: Patient present because of abdominal pain. Workup is initiated. He had a normal white blood cell count but elevated LFTs. Patient underwent CT imaging. He is found to have cholelithiasis. Patient had elevated lipase as well. He was doing well and declined analgesia. Discussed the case with on-call gastroenterology, Dr. Kendrick. MRCP was recommended and if the patient has ductal stones antibiotics should be considered. Patient needs to be admitted and formal GI consultation will be made. Consultation was made with the [facility]. Case discussed and diagnostics were reviewed. Patient was admitted for further management. I refer you to the EMR for further details. Care/management discussed with: none Level of care consideration(s): After review of the information above and other included data, I feel the patient requires escalation of care to admission Triage Nursing notes: reviewed and agree them. Vital Signs: reviewed and remarkable for no significant abnormalities Additional History obtained from: none Chronic Medical/Social Conditions affecting care: DVT, anticoagulation Prior/ Outside/ External records reviewed: none Differential Diagnosis: PUD, pancreatitis, biliary pathology, Appendicitis, testicular torsion, infections, diverticulitis, UTI, obstruction, mesenteric ischemia, aortic pathology, inflammatory bowel disease, renal colic, hernia, volvulus, constipation, as well as other pathologies. Diagnostics, independently interpreted by me: ECG: Twelve-lead ECG reveals normal sinus rhythm at 71 beats per minute. No evidence of pericarditis, ischemia, ectopy, or dysrhythmia. Cardiac Monitoring: Cardiac monitoring ordered by me: The patient was placed on continuous cardiac monitoring and observed. It revealed a normal sinus rhythm at 76 beats per minute without ectopy or evidence of dysrhythmia. Medical decision rules: none Imaging studies: CT scan reveals reveals cholelithiasis. No obstruction. I refer you to the EMR for further details. HPI: 69 year old Male arrives for evaluation of abdominal pain. This started 2 days ago and is improved. The patient also notes the following associated symptoms, white stool. Patient notes pain did radiate to his back. The patient has taken no medication for relieving factors. Current pain is rated as 0 /10.patient notes the white stools what prompted the ER visit as he was concerned about possible gallbladder issues. He was told he had gallstones on prior imaging years ago. Patient does note dietary indiscretion 2 days ago. Pt denies LOC, headache, fevers, chills, diaphoresis, visual changes, neck pain, chest pain, breathing difficulties, nausea, vomiting, abdominal pain, back pain, melena, hematochezia, urinary symptoms, numbness, weakness, lymphadenopathy, rash, or other complaints.. PAST MEDICAL HISTORY: See Below, PE, anticoagulated, hypothyroidism, hypertension PAST SURGICAL HISTORY: See Below, SOCIAL HISTORY: See Below, HOME MEDICATIONS: See Below ALLERGIES: See Below VITALS: See Below PHYSICAL EXAMINATION: GENERAL: Awake, alert, well-appearing, in no distress HENT: Normocephalic, atraumatic. Oropharynx unremarkable. EYES: Normal conjunctiva. Sclera non-icteric. NECK: Inspection normal. Non-tender. Supple. No nuchal rigidity. FROM. No masses. RESPIRATORY: Clear to auscultation. No wheezes. No rales. Normal respiratory effort. CARDIAC: Normal rate. Normal rhythm. No murmurs. No rubs. Extremities warm and well perfused. Pulses equal. No JVD. GI: Soft, mild-distended. No tenderness to palpation. No rebound or guarding. No masses. RECTAL: Deferred. MUSCULOSKELETAL: Atraumatic. Chest examination reveals no tenderness. The back is symmetrical on inspection without obvious abnormality. There is no CVA tenderness to palpation. No joint edema. LOWER EXTREMITIES: Calves are equal size bilaterally and non-tender. No edema. No discoloration. NEURO: Normal sensorium. No sensory or motor deficits noted. SKIN: No rash or jaundice noted. PROCEDURES: none CRITICAL CARE: none OBSERVATION NOTE: none Past Med/Surg History Problem List (Updated 11/28/24 @ 19:13 by Breezy Conteh MD) Cholelithiasis (Acute) Elevated LFTs (Acute) Abdominal pain (Acute) Acute deep vein thrombosis (DVT) of right lower extremity (Acute) Acute saddle pulmonary embolus (Acute) History of bilateral hip replacements History of pulmonary embolus (PE) (Acute) History of pulmonary embolus (PE) (Acute) GERD (gastroesophageal reflux disease) (Acute) Community acquired pneumonia Chest tightness or pressure (Acute 10/01/14) Chest pain (Acute) Chest pain (Acute) Chest pain (Acute) Acute respiratory failure with hypoxia Abdominal bloating (Acute) Abdominal bloating (Acute) DVT (deep venous thrombosis) (Chronic) PE (pulmonary embolism) (Chronic) GERD (gastroesophageal reflux disease) (Chronic) Hyperlipidemia (Chronic) Hypothyroidism (Chronic) Hypertension (Chronic) PE (pulmonary embolism) (Acute 07/06/13) Medical History Cholelithiasis History of melanoma Diabetes mellitus History of pneumonia (2018) GERD (gastroesophageal reflux disease) Hypothyroidism Hypertension Hyperlipidemia AAA (abdominal aortic aneurysm) Hx of deep venous thrombosis (2016) Hx pulmonary embolism (2016) Surgical History Hx of melanoma excision Hx of colonoscopy Hx of umbilical hernia repair Hx of bilateral hip replacements (2005) Social History Smoking Status: Never smoker Second Hand Exposure: No; Do You Dip or Chew Tobacco: No; Hx Alcohol Use: Yes Alcohol type: beer Hx Substance Use: No Preferred Language: Romanian Communication Ability: Effective Cutting Machine Tender Decorative Required: No Beliefs That Will Affect Care: None marital status: Current Living Situation: Spouse current occupational status: employed Feels Safe at Home: Yes Assistive Devices: Cane Allergies Allergies Allergy/AdvReac Type Severity Reaction Status Date / Time lisinopril Allergy Mild Cough Verified 10/02/24 10:00 Home Meds Home Medications Medication Instructions Recorded Confirmed potassium chloride 10 mEq 10 meq PO QAM 04/08/20 11/28/24 tablet,extended release [id number] 150 mcg-vit K1 1 tab PO DAILY 09/20/24 11/28/24 30 mcg-lycop 300 mcg-lutein tablet (Centrum Minis Men 50 Plus) tirzepatide 15 mg/0.5 mL 15 mg subcut WK 09/20/24 11/28/24 subcutaneous pen injector (Yudith) aspirin 81 mg tablet,delayed 81 mg PO QAM 10/02/24 11/28/24 release bupropion HCl 150 mg 24 hr tablet, 150 mg PO QAM 10/02/24 11/28/24 extended release hydrochlorothiazide 25 mg tablet 25 mg PO QAM 10/02/24 11/28/24 levothyroxine 125 mcg tablet 125 mcg PO DAILYBB 10/02/24 11/28/24 losartan 100 mg tablet 100 mg PO HS 10/02/24 11/28/24 metoprolol succinate 50 mg 50 mg PO HS 10/02/24 11/28/24 tablet,extended release 24 hr pravastatin 20 mg tablet 20 mg PO HS 10/02/24 11/28/24 Previous Rx's Medication Instructions Recorded apixaban 5 mg (74 tabs) tablets in 5 mg PO BID #74 ea 10/04/24 a dose pack (Eliquis) Results & Data (ED) Vital Signs Vital Signs - 24 hr 11/28/24 13:17 11/28/24 13:45 11/28/24 13:46 Temperature 36.7 C Temperature Source Skin Pulse Rate 76 Pulse Rate [Apical] 74 Pulse Rhythm [Apical] Pulse Strength [Apical] Respiratory Rate 18 19 Respiratory Effort / Characteristics Non-Labored Spontaneous Non-Labored Spontaneous Respiratory Depth Normal Normal Respiratory Pattern Regular Blood Pressure 137/86 Blood Pressure [Right Arm] 151/88 H Blood Pressure Mean 103 Blood Pressure Mean [Right Arm] 109 Blood Pressure Position Sitting Pulse Oximetry 97 98 98 Oxygen Delivery Method Room Air Room Air Room Air Sepsis Recent Fever Within 48 Hours No Sepsis New/Unexplained Change in Mental Status N/A Sepsis Action Taken by Nursing No Action Required 11/28/24 15:02 11/28/24 15:32 11/28/24 17:45 Temperature Temperature Source Pulse Rate 72 Pulse Rate [Apical] 72 79 Pulse Rhythm [Apical] Regular Pulse Strength [Apical] Normal Normal Respiratory Rate 18 18 Respiratory Effort / Characteristics Non-Labored Spontaneous Non-Labored Spontaneous Respiratory Depth Normal Normal Respiratory Pattern Regular Regular Blood Pressure Blood Pressure [Right Arm] 131/84 124/79 Blood Pressure Mean Blood Pressure Mean [Right Arm] 99 94 Blood Pressure Position Pulse Oximetry 99 98 Oxygen Delivery Method Room Air Room Air Sepsis Recent Fever Within 48 Hours Sepsis New/Unexplained Change in Mental Status Sepsis Action Taken by Nursing 11/28/24 18:31 Temperature Temperature Source Pulse Rate Pulse Rate [Apical] 76 Pulse Rhythm [Apical] Regular Pulse Strength [Apical] Normal Respiratory Rate 19 Respiratory Effort / Characteristics Respiratory Depth Respiratory Pattern Blood Pressure Blood Pressure [Right Arm] 139/84 Blood Pressure Mean Blood Pressure Mean [Right Arm] 102 Blood Pressure Position Pulse Oximetry 98 Oxygen Delivery Method Room Air Sepsis Recent Fever Within 48 Hours Sepsis New/Unexplained Change in Mental Status Sepsis Action Taken by Nursing Laboratory Data 11/28/24 13:35 11/28/24 13:35 Lab Results 11/28/24 11/28/24 Range/Units 13:35 15:29 WBC 7.88 (4.8-10.8) K/ul RBC 4.97 (4.70-6.10) M/uL Hgb 15.0 (14.0-18.0) g/dl Hct 44.9 (42.0-52.0) % MCV 90.3 (80.0-100.0) fL MCH 30.2 (25.0-34.0) pg MCHC 33.4 (32.0-36.0) g/dL RDW Std Deviation 42.7 (36.4-46.3) fL RDW Coeff of Osmin 13.0 (11.5-14.5) % Plt Count 224 (130-400) K/uL MPV 10.7 (9.4-12.4) fL Immature Gran % (Auto) 0.3 % Neut % (Auto) 69.1 % Lymph % (Auto) 17.1 % Sebastian % (Auto) 9.0 % Eos % (Auto) 3.9 % Baso % (Auto) 0.6 % Neut # (Auto) 5.44 (1.40-6.50) K/uL Lymph # (Auto) 1.35 (1.20-3.40) K/uL Sebastian # (Auto) 0.71 H (0.11-0.59) K/uL Eos # (Auto) 0.31 (0.00-0.50) K/uL Baso # (Auto) 0.05 (0.00-0.20) K/uL Immature Gran # (Auto) 0.02 (0.01-0.20) K/uL PT Cancelled 11.8 INR Cancelled 1.1 Sodium 142 (136-145) mmol/L Potassium 4.0 (3.5-5.1) mmol/L Chloride 103 (98-107) mmol/L Carbon Dioxide 32 (21-32) mmol/L Anion Gap 7 (3-11) BUN 16 (6-23) mg/dl Creatinine 1.27 (0.6-1.4) mg/dl Est Cr Clr Drug Dosing 70.7 ml/min eGFR 61.54 BUN/Creatinine Ratio 12.6 (10-20) Glucose 130 H (70-99(Fasting)) mg/dl Calcium 9.7 (8.6-10.3) mg/dl Magnesium 2.0 (1.7-2.4) mg/dl Total Bilirubin 3.2 H (0.2-1.0) mg/dl AST 554 H (13-39) U/L ALT 758 H (7-52) U/L Alkaline Phosphatase 137 H (34-104) U/L Troponin I High Sens 7.1 (0-20) pg/ml Total Protein 7.4 (6.0-8.3) gm/dl Albumin 4.1 (3.4-5.0) gm/dl Globulin 3.3 (2.5-4.0) gm/dl Albumin/Globulin Ratio 1.2 (0.9-2) Lipase 164 H (11-82) U/L Urine Color Dark Yellow Urine Appearance Clear (Clear) Urine pH 5.5 (4.5-7.5) Ur Specific [place] 1.008 (1.000-1.030) Urine Protein Negative (Negative) Urine Glucose (UA) Negative (Negative) Urine Ketones Negative (Negative) Urine Blood Trace H (Negative) Urine Nitrite Negative (Negative) Urine Bilirubin Negative (Negative) Urine Urobilinogen Negative (Negative) Ur Leukocyte Esterase Negative (Negative) Urine WBC (Auto) 0-5 (0-5) /hpf Urine RBC (Auto) 3-5 H (0-2) /hpf U Hyaline Cast (Auto) 0-2 (0-2) /lpf U Epithel Cells (Auto) 0-2 (0-2) /hpf Urine Bacteria (Auto) None Seen (None Seen) Administered Medications Sodium Chloride (Nss) 1,000 mls @ 125 mls/hr IV .Q8H [facility] Stop: 11/29/24 16:14 Last Admin: 11/28/24 16:10 Dose: 125 mls/hr Documented By: GGG Discontinued Medications Ioversol (Optiray 320 100ml) 92 ml IV ONCE ONE Stop: 11/28/24 14:48 Last Admin: 11/28/24 14:48 Dose: 92 ml Documented By: EDK Imaging Data Radiologist's Impression: Chest X-Ray 11/28/24 13:27 Chest radiograph, one view History: Chest pain Comparison: 10/02/2024 Findings: Single AP view of the chest performed. No focal consolidation or pleural effusion. No pneumothorax. The cardiomediastinal silhouette is within normal limits. Normal pulmonary vascularity. No evidence for lymphadenopathy. No visualized bony or soft tissue abnormality. Impression: Normal chest radiograph Electronically signed by Jordin Young 11-28-2024 2:49 PM Abdomen/Pelvis CT 11/28/24 14:20 EXAMINATION: CT of the abdomen and pelvis performed after the administration of IV contrast TECHNIQUE: Helical CT images from the lung bases through the symphysis pubis were obtained with contrast. Coronal and sagittal reformatted images were generated at a workstation for further assessment. Dose reduction techniques were achieved by using automatic exposure control and/or adjustment of mA and/or kV according to patient size and/or use of iterative reconstruction technique. COMPARISON: None HISTORY: Abdominal pain FINDINGS: Lower chest: No consolidation. No pleural effusion or pneumothorax. Liver: No suspicious liver lesions. Portal veins appear patent. Gallbladder: Calcified gallstones noted within a contracted gallbladder. No evidence of acute cholecystitis. Spleen: Normal size. Pancreas: No suspicious pancreatic lesions. The pancreatic duct is not dilated. Adrenal glands: No adrenal nodules. Kidneys: No hydronephrosis or obstructing renal stones. Few, scattered small renal cysts. Bladder / Pelvic organs: Unremarkable. Bowel: No bowel obstruction. No abnormal bowel wall thickening. The appendix is unremarkable. Left colonic diverticulosis without diverticulitis. Lymph nodes: No retroperitoneal, mesenteric, or pelvic lymphadenopathy. Peritoneum / Retroperitoneum: No free fluid or air within the abdomen. Vessels: No infrarenal aortic aneurysm. Moderate aortoiliac calcification. Bones and soft tissues: No suspicious lesion in the bones. Bilateral total hip arthroplasty. IMPRESSION: No acute finding in the abdomen or pelvis. Cholelithiasis. Electronically signed by Jordin Young 11-28-2024 3:59 PM Cholangiopancreatography MRI 11/28/24 16:03 Exam: MR abdomen exam without intravenous contrast. Dedicated magnetic resonance cholangiopancreatography images were obtained and reviewed. History: Elevated liver function test. Evaluate for gallstones. Comparison: Earlier same day CT abdomen and pelvis correlate in 02 October 2024 right upper quadrant ultrasound. Technique: Routine multiplanar multisequence MR images of the abdomen without intravenous contrast. Dedicated source and 3D maximum intensity projection images of the pancreaticobiliary tree were obtained and reviewed. Findings: Localizer images demonstrate susceptibility artifact consistent with bilateral hip arthroplasty changes. Additional right posterior lateral lower thoracic spine T2 hyperintense signal likely representing a nerve root sleeve cyst is noted. Diffusion weighted series demonstrates no abnormal restricted diffusion. Portions of the exam are limited secondary to patient motion artifact. Liver spleen signal intensity is within normal limits. Pancreas is within normal limits. Bilateral adrenal glands are within normal limits. Increase fluid sensitive signal involving the bilateral kidneys likely representing benign cysts. Further characterization is limited on this noncontrast exam. Included hollow organs are within normal limits. Gallbladder is mildly distended. Intraluminal hypointense filling defects consistent with stones corresponding to prior CT and ultrasound. Gallbladder wall thickness is prominent measuring 4 mm. No discrete pericholecystic fluid. No intrahepatic duct dilatation. Cystic duct appears to be patent. Common duct demonstrates normal caliber. No filling defects at this level. Pancreatic duct is within normal limits. Difficulty appreciating well-defined tapering distal common duct at the level of the pancreatic head. No pancreatic mass or filling defect at this level. Again motion is limiting. Impression: 1. Multiple gallstones with prominent wall thickness of the gallbladder measuring 4 mm. Gallbladder is mildly distended and wall thickness may be exaggerated. No pericholecystic fluid. No intrahepatic or extrahepatic ductal dilatation. 2. Difficulty appreciating well-defined tapering of the distal common duct without pancreatic mass or filling defect at this level. No discrete shouldering. Motion is limiting and this may be artifactual. Pancreatic duct is normal in caliber. 3. Likely benign renal cysts. Ultrasound would be helpful for further characterization. Please see above for details. Electronically signed by Jace Shanks 11-28-2024 6:13 PM Discharge Plan Visit Data Chief Complaint: Abdominal Pain Stated Complaint: GALLBLADDER- WHITE STOOL ED Provider: Breezy Conteh Discharge Problem: Abdominal pain, Elevated LFTs, Cholelithiasis Forms Stand Alone Forms: My [facility] [employer] Mobile App Prescriptions Prescriptions: No Action potassium chloride 10 mEq tablet extended release 10 meq PO QAM Mounjaro 15 mg/0.5 mL Pen Injector 15 mg SUBCUT WK Rx Instructions: Friday Centrum Minis Men 50 Plus [id number] mcg Tablet 1 tab PO DAILY metoprolol succinate 50 mg tablet extended release 24 hr 50 mg PO HS aspirin 81 mg Tablet,Delayed Release (Dr/Ec) 81 mg PO QAM Hold Instructions: Provider's Order levothyroxine 125 mcg tablet 125 mcg PO DAILYBB pravastatin 20 mg tablet 20 mg PO HS hydrochlorothiazide 25 mg tablet 25 mg PO QAM losartan 100 mg tablet 100 mg PO HS bupropion HCl 150 mg tablet extended release 24 hr 150 mg PO QAM Eliquis 5 mg (74 tabs) tablets,dose pack 5 mg PO BID Qty: 74 0RF Referrals Referrals: Nasir Maldonado [Primary Care Provider] -
[2024-11-28 15:57] LABS: INR 1.1 (0.9-1.1); Prothrombin Time 11.8 Seconds (9.0-12.0)
--- NOTE | 2024-11-28 16:00 | CT Scan Report ---
EXAMINATION: CT of the abdomen and pelvis performed after the administration of IV contrast TECHNIQUE: Helical CT images from the lung bases through the symphysis pubis were obtained with contrast. Coronal and sagittal reformatted images were generated at a workstation for further assessment. Dose reduction techniques were achieved by using automatic exposure control and/or adjustment of mA and/or kV according to patient size and/or use of iterative reconstruction technique. COMPARISON: None HISTORY: Abdominal pain FINDINGS: Lower chest: No consolidation. No pleural effusion or pneumothorax. Liver: No suspicious liver lesions. Portal veins appear patent. Gallbladder: Calcified gallstones noted within a contracted gallbladder. No evidence of acute cholecystitis. Spleen: Normal size. Pancreas: No suspicious pancreatic lesions. The pancreatic duct is not dilated. Adrenal glands: No adrenal nodules. Kidneys: No hydronephrosis or obstructing renal stones. Few, scattered small renal cysts. Bladder / Pelvic organs: Unremarkable. Bowel: No bowel obstruction. No abnormal bowel wall thickening. The appendix is unremarkable. Left colonic diverticulosis without diverticulitis. Lymph nodes: No retroperitoneal, mesenteric, or pelvic lymphadenopathy. Peritoneum / Retroperitoneum: No free fluid or air within the abdomen. Vessels: No infrarenal aortic aneurysm. Moderate aortoiliac calcification. Bones and soft tissues: No suspicious lesion in the bones. Bilateral total hip arthroplasty. IMPRESSION: No acute finding in the abdomen or pelvis. Cholelithiasis. Electronically signed by Jordin Young 11-28-2024 3:59 PM
[2024-11-28] MEDS: SODIUM CHLORIDE 0.9% 1,000 ML IV SCH (16:10)
--- NOTE | 2024-11-28 16:41 | History & Physical Report ---
Date of Service November 28, 2024 Assessment & Plan (1) Abdominal pain: (2) Cholelithiasis: (3) History of pulmonary embolus (PE): (4) Hypertension: (5) Hypothyroidism: (6) Hyperlipidemia: (7) GERD (gastroesophageal reflux disease): Plan #Abdominal pain #Cholelithiasis #Abnormal LFTs - admit to [facility] - suspect choledocholithiasis - NPO p MN - GI consulted, requests initiation of abx if MRCP shows choledocholithiasis - will also consult gen surgery - cont IVF #Elevated lipase - suspect transient minor pancreatitis - CT unremarkable - pt with no symptoms - trend at this time #DVT / PE - on eliquis, will hold at this time #HTN/HLD/Hypothyroidism - hold statin given abnormal LFTs - cont metoprolol / losartan - cont levothyroxine History of Present Illness Chief Complaint: white stool Primary Care Provider: Nasir Joel 69 yo M with PMHx of DVT / PE, GERD, HTN, HLD, hypothyroidism presents to [facility] on 11/28/24 for the evaluation of the abdominal pain followed by white stool. Pt states that he had broken his leg earlier this year and has been home from work. During this time, he has been trying to lose weight and has decreased his food intake. However, this past Friday, he went out to eat and ordered a larger portion. He ate the whole thing and shortly after he started to feel bloating and developed abdominal distension. It continued until Friday 4am, when it fully resolved. Then later on Friday, he had a bowel movement which was white. He had another bowel movement today which was also white which prompted him to come to the hospital. He has no other symptoms at this time and no pain. ED spoke with GI and admission requested for MRCP / ERCP. Allergies Allergy/AdvReac Type Severity Reaction Status Date / Time lisinopril Allergy Mild Cough Verified 10/02/24 10:00 Home Medications Medication Instructions Recorded Confirmed Type potassium chloride 10 mEq 10 meq PO QAM 04/08/20 11/28/24 History tablet,extended release [id number]-[id number] 150 mcg-vit K1 1 tab PO DAILY 09/20/24 11/28/24 History 30 mcg-lycop 300 mcg-lutein tablet (Centrum Minis Men 50 Plus) tirzepatide 15 mg/0.5 mL 15 mg subcut WK 09/20/24 11/28/24 History subcutaneous pen injector (Yudith) aspirin 81 mg tablet,delayed 81 mg PO QAM 10/02/24 11/28/24 History release bupropion HCl 150 mg 24 hr tablet, 150 mg PO QAM 10/02/24 11/28/24 History extended release hydrochlorothiazide 25 mg tablet 25 mg PO QAM 10/02/24 11/28/24 History levothyroxine 125 mcg tablet 125 mcg PO DAILYBB 10/02/24 11/28/24 History losartan 100 mg tablet 100 mg PO HS 10/02/24 11/28/24 History metoprolol succinate 50 mg 50 mg PO HS 10/02/24 11/28/24 History tablet,extended release 24 hr pravastatin 20 mg tablet 20 mg PO HS 10/02/24 11/28/24 History apixaban 5 mg (74 tabs) tablets in 5 mg PO BID #74 ea 10/04/24 11/28/24 Rx a dose pack (Eliquis) Past Med/Surg History Problem List (Updated 11/28/24 @ 14:48 by Breezy Conteh MD) Abdominal pain (Acute) Acute deep vein thrombosis (DVT) of right lower extremity (Acute) Acute saddle pulmonary embolus (Acute) History of bilateral hip replacements History of pulmonary embolus (PE) (Acute) History of pulmonary embolus (PE) (Acute) GERD (gastroesophageal reflux disease) (Acute) Community acquired pneumonia Chest tightness or pressure (Acute 10/01/14) Chest pain (Acute) Chest pain (Acute) Chest pain (Acute) Acute respiratory failure with hypoxia Abdominal bloating (Acute) Abdominal bloating (Acute) DVT (deep venous thrombosis) (Chronic) PE (pulmonary embolism) (Chronic) GERD (gastroesophageal reflux disease) (Chronic) Hyperlipidemia (Chronic) Hypothyroidism (Chronic) Hypertension (Chronic) PE (pulmonary embolism) (Acute 07/06/13) Medical History Cholelithiasis History of melanoma Diabetes mellitus History of pneumonia (2018) GERD (gastroesophageal reflux disease) Hypothyroidism Hypertension Hyperlipidemia AAA (abdominal aortic aneurysm) Hx of deep venous thrombosis (2016) Hx pulmonary embolism (2017) Surgical History Hx of melanoma excision Hx of colonoscopy Hx of umbilical hernia repair Hx of bilateral hip replacements (2005) Social History Smoking Status: Never smoker Second Hand Exposure: No; Do You Dip or Chew Tobacco: No; Hx Alcohol Use: Yes Alcohol type: beer Hx Substance Use: No Preferred Language: Occitan Communication Ability: Effective 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 Beliefs That Will Affect Care: None marital status: Current Living Situation: Spouse current occupational status: employed Feels Safe at Home: Yes Assistive Devices: Cane Review of Systems Review of Systems: Comprehensive ROS neg Physical Exam Physical Exam: Gen: NAD HEENT: NC/AT, MMM Lungs: CTAB CVS: s1s2 nl, RRR Abd: soft, NT, nl bowel sounds, no rebound / rigidity / guarding : no capone Neuro: AAOx3 Results & Data Results & Data Vital Signs (Past 12 Hours) Vital Signs Temp Pulse Pulse Resp BP BP Pulse Ox 11/28/24 15:32 72 18 131/84 99 11/28/24 15:02 72 11/28/24 13:46 74 19 151/88 H 98 11/28/24 13:45 98 11/28/24 13:17 36.7 C 76 18 137/86 97 O2 Del Method 11/28/24 15:32 Room Air 11/28/24 15:02 11/28/24 13:46 Room Air 11/28/24 13:45 Room Air 11/28/24 13:17 Room Air PG Care Time/CCT Total # of Minutes Spent Total Time Spent with Patient: Total time spent is greater than 50% in coordination of care (as documented) at patient's floor/unit and/or counseling patient: Coding Level of Care Code 94543 INT INP/OBS CARE 3/75MIN Diagnoses Abdominal pain R10.9 Cholelithiasis K80.20 History of pulmonary embolus (PE) Z86.711 Hypertension I10 Hypothyroidism E03.9 Hyperlipidemia E78.5 GERD (gastroesophageal reflux disease) K21.9
--- NOTE | 2024-11-28 17:29 | Electrocardiogram Report ---
Test Reason : Blood Pressure : */* mmHG Vent. Rate : 71 BPM Atrial Rate : 71 BPM P-R Int : 190 ms QRS Dur : 92 ms QT Int : 398 ms P-R-T Axes : 34 -9 14 degrees QTcB Int : 432 ms Normal sinus rhythm Normal ECG When compared with ECG of 02-Oct-2024 07:31, No significant change was found Confirmed by James Thompson ([id number]) on 11/28/2024 5:28:45 PM Referred By: Confirmed By: James Thompson
--- NOTE | 2024-11-28 18:14 | Magnetic Resonance Report ---
Exam: MR abdomen exam without intravenous contrast. Dedicated magnetic resonance cholangiopancreatography images were obtained and reviewed. History: Elevated liver function test. Evaluate for gallstones. Comparison: Earlier same day CT abdomen and pelvis correlate in 02 October 2024 right upper quadrant ultrasound. Technique: Routine multiplanar multisequence MR images of the abdomen without intravenous contrast. Dedicated source and 3D maximum intensity projection images of the pancreaticobiliary tree were obtained and reviewed. Findings: Localizer images demonstrate susceptibility artifact consistent with bilateral hip arthroplasty changes. Additional right posterior lateral lower thoracic spine T2 hyperintense signal likely representing a nerve root sleeve cyst is noted. Diffusion weighted series demonstrates no abnormal restricted diffusion. Portions of the exam are limited secondary to patient motion artifact. Liver spleen signal intensity is within normal limits. Pancreas is within normal limits. Bilateral adrenal glands are within normal limits. Increase fluid sensitive signal involving the bilateral kidneys likely representing benign cysts. Further characterization is limited on this noncontrast exam. Included hollow organs are within normal limits. Gallbladder is mildly distended. Intraluminal hypointense filling defects consistent with stones corresponding to prior CT and ultrasound. Gallbladder wall thickness is prominent measuring 4 mm. No discrete pericholecystic fluid. No intrahepatic duct dilatation. Cystic duct appears to be patent. Common duct demonstrates normal caliber. No filling defects at this level. Pancreatic duct is within normal limits. Difficulty appreciating well-defined tapering distal common duct at the level of the pancreatic head. No pancreatic mass or filling defect at this level. Again motion is limiting. Impression: 1. Multiple gallstones with prominent wall thickness of the gallbladder measuring 4 mm. Gallbladder is mildly distended and wall thickness may be exaggerated. No pericholecystic fluid. No intrahepatic or extrahepatic ductal dilatation. 2. Difficulty appreciating well-defined tapering of the distal common duct without pancreatic mass or filling defect at this level. No discrete shouldering. Motion is limiting and this may be artifactual. Pancreatic duct is normal in caliber. 3. Likely benign renal cysts. Ultrasound would be helpful for further characterization. Please see above for details. Electronically signed by Jace Shanks 11-28-2024 6:13 PM
--- NOTE | 2024-11-28 19:41 | Surgery Consultation ---
Date of Consultation November 28, 2024 Assessment & Plan (1) Cholelithiasis: Patient is being admitted on the hospitalist service. From a surgical perspective we recommend the following: At this time the patient does not have any imaging suggestive of cholecystitis at this time. His clinical exam is also not consistent with cholecystitis The patient does have elevated LFTs, and with history of cholelithiasis this raises the possibility of the patient may have passed a gallstone at the time of his initial episode of pain I do feel be prudent to check a gallbladder ultrasound for better delineation of the hepatobiliary system Would recommend repeating LFTs and lipase in the morning (the patient does have a slight elevation of his lipase today but has absolutely no clinical evidence of pancreatitis) If the patient's LFTs are further elevated tomorrow, this would be suggestive of choledocholithiasis that was not picked up on MRCP and GI evaluation with possible ERCP would be warranted If patient's LFTs improve, this again suggest the patient had a passed gallstone which did not develop into cholecystitis I discussed with the patient that since he does take Eliquis so be preferable to have him off this medication for a few days prior to entertaining cholecystectomy If the patient's LFTs are improving on tomorrow's labs and he is pain-free, consideration can be given to discharging the patient home with close outpatient follow-up with general surgery and elective cholecystectomy. If the patient does desire to have cholecystectomy this admission that may be able to be performed by Dr. Lara about any physician of general surgery on 11/30/2024 after he has been off his Eliquis for a few days Additional recommendations will be forthcoming based on his clinical course as it unfolds History of Present Illness Reason for Consultation: Cholelithiasis Attending Physician: Kenya Fajardo MD History of Present Illness This is a 69-year-old male who presented to the emergency department secondary to abnormal bowel movement. The patient reports that on November 26 he developed some upper abdominal pain shortly after eating. The patient says that he felt he ate too much and that was the cause of his pain. When he developed this pain he did not have any nausea or vomiting. And he also denies any fevers, shakes, or chills. He notes that the pain spontaneously resolved and has not recurred. I did question the patient on whether he has been having postprandial pain over the past several weeks to months which he denies. He notes that he has had prior abdominal surgery in the form of an umbilical herniorrhaphy and he does feel that mesh was utilized at this time. He also reports a 14 pound intentional weight loss over the past several months. He presented to the emergency department today because he had a bowel movement where his stool appeared white in color which concerned him prompting his visit to the emergency department. It is noteworthy to mention that this patient said he slipped on the ice in September suffering a fracture of his right leg requiring surgery. Pe rioperatively he developed a subtle pulmonary emboli as well as a DVT for which he takes Eliquis 5 mg twice daily and he did take a dose this morning which was 11/28/2024. Since arrival to the hospital today he has had labs and imaging which independent reviewed. Chest x-ray showed no evidence of pneumonia. A CT scan of the abdomen pelvis showed the patient had Soila lithiasis but there is no juan dence of cholecystitis. He did have labs performed where CBC showed white blood cell count, hemoglobin, hematocrit, platelet count were normal. Coagulation studies showed an INR of 1.1. Chemistry profile showed sodium and potassium as well as the BUN and creatinine were normal. He did have elevated LFTs with a total bilirubin of 3.2. His AST and ALT were 554 and 758 respectively. His alkaline phosphatase was elevated 137. His lipase had a slight elevation of 164. Urinalysis was not indicative of infection. Because of the elevated LFTs gastroenterology was consulted and they recommended an MRCP. This study was performed which showed gallbladder wall thickness of 4 mm and multiple gallstones. There was no evidence of choledocholithiasis on the study. There is no biliary ductal dilatation. There is no pericholecystic fluid noted. At the time of my interview the patient was resting comfortably in bed he was no distress. Allergies Allergy/AdvReac Type Severity Reaction Status Date / Time lisinopril Allergy Mild Cough Verified 10/02/24 10:00 Home Medications Medication Instructions Recorded Confirmed Type potassium chloride 10 mEq 10 meq PO QAM 04/08/20 11/28/24 History tablet,extended release [id number] 150 mcg-vit K1 1 tab PO DAILY 09/20/24 11/28/24 History 30 mcg-lycop 300 mcg-lutein tablet (Centrum Minis Men 50 Plus) tirzepatide 15 mg/0.5 mL 15 mg subcut WK 09/20/24 11/28/24 History subcutaneous pen injector (Yudith) aspirin 81 mg tablet,delayed 81 mg PO QAM 10/02/24 11/28/24 History release bupropion HCl 150 mg 24 hr tablet, 150 mg PO QAM 10/02/24 11/28/24 History extended release hydrochlorothiazide 25 mg tablet 25 mg PO QAM 10/02/24 11/28/24 History levothyroxine 125 mcg tablet 125 mcg PO DAILYBB 10/02/24 11/28/24 History losartan 100 mg tablet 100 mg PO HS 10/02/24 11/28/24 History metoprolol succinate 50 mg 50 mg PO HS 10/02/24 11/28/24 History tablet,extended release 24 hr pravastatin 20 mg tablet 20 mg PO HS 10/02/24 11/28/24 History apixaban 5 mg (74 tabs) tablets in 5 mg PO BID #74 ea 10/04/24 11/28/24 Rx a dose pack (Eliquis) Patient History Medical History Cholelithiasis History of melanoma Diabetes mellitus History of pneumonia (2017) GERD (gastroesophageal reflux disease) Hypothyroidism Hypertension Hyperlipidemia AAA (abdominal aortic aneurysm) follows with cardio at [facility], has Abd duplex [facility] 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 Beliefs That Will Affect Care: None marital status: Current Living Situation: Spouse current occupational status: employed Feels Safe at Home: Yes Assistive Devices: Cane Review of Systems Review of Systems: All systems reviewed & are unremarkable except as noted in HPI & below Physical Exam Constitutional: WD/WN, vitals as above Eyes: + anicteric sclerae Wears glasses ENMT: Ears: no hearing impairment and no external ear abnormality Sublingual jaundice is absent Neck: trachea midline Respiratory: normal respiratory effort; no respiratory distress and no labored breathing Cardiovascular: Rate/Rhythm: regular rate and regular rhythm Gastrointestinal (Abdomen): At the time of my exam the patient's abdomen is notably soft without distention. Patient was completely free of pain. There is no pain with palpation in the right upper quadrant. There is no rebound tenderness or guarding Musculoskeletal: No calf tenderness Skin: no jaundice Neurologic: moves all extremities Psychiatric: A+Ox3, euthymic affect Results & Data Vital Signs (Past 12 Hours) Vital Signs Temp Pulse Pulse Resp BP BP Pulse Ox 11/28/24 19:14 78 19 135/93 97 11/28/24 18:31 76 19 139/84 98 11/28/24 17:45 79 18 124/79 98 11/28/24 15:32 72 18 131/84 99 11/28/24 15:02 72 11/28/24 13:46 74 19 151/88 H 98 11/28/24 13:45 98 11/28/24 13:17 36.7 C 76 18 137/86 97 O2 Del Method 11/28/24 19:14 Room Air 11/28/24 18:31 Room Air 11/28/24 17:45 Room Air 11/28/24 15:32 Room Air 11/28/24 15:02 11/28/24 13:46 Room Air 11/28/24 13:45 Room Air 11/28/24 13:17 Room Air PG Care Time/CCT Total # of Minutes Spent Total Time Spent with Patient: Total time spent is greater than 50% in coordination of care (as documented) at patient's floor/unit and/or counseling patient: Coding Level of Care Code 90035 INT INP/OBS CARE MIN Diagnoses Cholelithiasis K80.20
[2024-11-28] MEDS: LOSARTAN POTASSIUM 50 MG TAB PO SCH (21:12)
[2024-11-28] MEDS: METOPROLOL SUCC 50MG EXT REL TAB PO SCH (21:12)
[2024-11-29] MEDS ORDERED: Nursing to Pharmacy Communication SCH (00:15)
--- NOTE | 2024-11-29 00:16 | Ultrasound Report ---
Exam(s): US GALLBLADDER EXAM: US Abdomen Limited, Gallbladder CLINICAL HISTORY: Reason for exam: gall stones. TECHNIQUE: Real-time ultrasound of the right upper quadrant with image documentation. COMPARISON: CT abdomen/pelvis: 11/28/2024 FINDINGS: Gallbladder: Bladder wall thickness: 3 mm. Demonstrates intraluminal gallstones, a 2.5 cm the largest. Neck of the bladder is obscured. Reported negative sonographic Szymanski's sign. Common bile duct: Unremarkable as visualized. No stones. No dilation. 4 mm in diameter. Pancreas: Limitedly visualized. Right kidney measures 11.4 cm in length. No hydronephrosis or discernible mass. No obvious calculi.. Other findings: Liver measures 16 cm in length. Coarsened increased parenchymal echogenicity, steatosis/possibly chronic liver disease.. . IMPRESSION: Cholelithiasis. Upper normal gallbladder wall thickness. Reported negative sonographic Szymanski's sign. Normal CBD. Coarsened/increased liver parenchymal echogenicity, fatty infiltration/possibly chronic liver disease. Recommend clinical correlation. . Electronically signed by: Kateryna Parmar MD, CHIQUISR 11/29/24 00:15 AM
[2024-11-29] MEDS: LEVOTHYROXINE SODIUM 125 MCG TABLET PO SCH (05:40)
[2024-11-29 07:16] LABS: Hematocrit (blood only) 40.9 % (42.0-52.0); Hemoglobin 13.6 g/dl (14.0-18.0); Mean Corpuscular Hgb Conc 33.3 g/dL (32.0-36.0); Mean Corpuscular Volume 90.1 fL (80.0-100.0); Platelet Count 205 K/uL (130-400); RDW Coefficient of Variation 13.3 % (11.5-14.5); RDW Standard Deviation 43.9 fL (36.4-46.3); Red Blood Count 4.54 M/uL (4.70-6.10); White Blood Count 5.64 K/ul (4.8-10.8)
[2024-11-29 07:28] LABS: Albumin Globulin Ratio 1.4 (0.9-2); Albumin Level 3.6 gm/dl (3.4-5.0); BUN Creatinine Ratio 12.7 (10-20); Bilirubin,Total 1.5 mg/dl (0.2-1.0); Calcium 8.6 mg/dl (8.6-10.3); Creatinine Clr Calc Pharmacy 63.3 ml/min; Globulin 2.5 gm/dl (2.5-4.0); Magnesium 1.9 mg/dl (1.7-2.4); Phosphorus 3.8 mg/dl (2.5-4.9); Potassium 3.5 mmol/L (3.5-5.1); Total Protein 6.1 gm/dl (6.0-8.3)
[2024-11-29 08:09] VITALS: RESP 16
[2024-11-29] MEDS: hydroCHLOROthiazide 25 MG TAB PO SCH (08:32)
[2024-11-29] MEDS: buPROPion XL 150 MG TABCR PO SCH (08:32)
--- NOTE | 2024-11-29 08:47 | Discharge Summary ---
Discharge Summary Date of Service November 29, 2024 Principal Dx & Hospital Course #1 = Principal Diagnosis (1) Abdominal pain: (2) Cholelithiasis: (3) History of pulmonary embolus (PE): (4) Hypertension: (5) Hypothyroidism: (6) Hyperlipidemia: (7) GERD (gastroesophageal reflux disease): Plan #Abdominal pain #Cholelithiasis #Abnormal LFTs - admit to [facility] - suspect choledocholithiasis - NPO p MN - GI consulted, requests initiation of abx if MRCP shows choledocholithiasis - will also consult gen surgery - cont IVF #Elevated lipase - suspect transient minor pancreatitis - CT unremarkable - pt with no symptoms - trend at this time #DVT / PE - on eliquis, will hold at this time #HTN/HLD/Hypothyroidism - hold statin given abnormal LFTs - cont metoprolol / losartan - cont levothyroxine Admission HPI Per Admitting Provider 69 yo M with PMHx of DVT / PE, GERD, HTN, HLD, hypothyroidism presents to [facility] on 11/28/24 for the evaluation of the abdominal pain followed by white stool. Pt states that he had broken his leg earlier this year and has been home from work. During this time, he has been trying to lose weight and has decreased his food intake. However, this past Friday, he went out to eat and ordered a larger portion. He ate the whole thing and shortly after he started to feel bloating and developed abdominal distension. It continued until Friday 4am, when it fully resolved. Then later on Friday, he had a bowel movement which was white. He had another bowel movement today which was also white which prompted him to come to the hospital. He has no other symptoms at this time and no pain. ED spoke with GI and admission requested for MRCP / ERCP. Discharge Plan Discharge Items Patient Disposition: Home - Self-Care Reason For Visit: CHOLEDOCHOLITHIASIS Discharge Diagnosis: choledocholithiasis Activity: Resume your previous activity Non-emergency contact: Primary Care Provider Call non-emergency contact if: you have any medication questions Follow-up/Referrals: Nasir Maldonado [Primary Care Provider] - Diet: Low Fat Addtl Attending Provider Instructions: Continue low fat diet. FOllowup with General Surgery within 1-2 weeks. Pending Studies at Discharge: No Stand-Alone Forms: My [facility], Smoking Cessation Medications and DC Order Prescriptions: Continued potassium chloride 10 mEq tablet extended release 10 meq PO QAM Mounjaro 15 mg/0.5 mL Pen Injector 15 mg SUBCUT WK Rx Instructions: Friday Centrum Minis Men 50 Plus [id number] mcg Tablet 1 tab PO DAILY metoprolol succinate 50 mg tablet extended release 24 hr 50 mg PO HS aspirin 81 mg Tablet,Delayed Release (Dr/Ec) 81 mg PO QAM Hold Instructions: Provider's Order levothyroxine 125 mcg tablet 125 mcg PO DAILYBB pravastatin 20 mg tablet 20 mg PO HS hydrochlorothiazide 25 mg tablet 25 mg PO QAM losartan 100 mg tablet 100 mg PO HS bupropion HCl 150 mg tablet extended release 24 hr 150 mg PO QAM Eliquis 5 mg (74 tabs) tablets,dose pack 5 mg PO BID Qty: 74 0RF Discharge Orders: Discharge Order (Routine); Ordered 11/29/24 Ordered By: Germán Edwards Admission Data Admit Date/Time: 11/28/24 17:10 Attending Provider: Germán Edwards Admit Provider: Kenya Fajardo Primary Care Provider: Nasir Maldonado Other Providers: Kenya Fajardo; Max Kendrick I; Abdi Lara Hospital Stay Data Consultations 11/28/24 17:00 ED Decision to Admit Stat 11/28/24 19:40 Consult Gastroenterology Routine Consult General Surgery Routine Diagnostic Imagining Performed 11/28/24 14:20 CT Abd and Pelvis [CT abd pelvis IV con only] Stat 11/28/24 16:03 MR MRCP Stat 11/28/24 19:28 US GB [US gallbladder] Stat Pending Results Patient Have Any Pending Studies at Discharge: No Discharge Instructions Given to Patient (Per Discharging Provider) Continue low fat diet. FOllowup with General Surgery within 1-2 weeks. Coding Diagnoses Abdominal pain R10.9 Cholelithiasis K80.20 History of pulmonary embolus (PE) Z86.711 Hypertension I10 Hypothyroidism E03.9 Hyperlipidemia E78.5 GERD (gastroesophageal reflux disease) K21.9
--- NOTE | 2024-11-29 10:07 | Gastrointestinal Consultation ---
Date of Consultation November 29, 2024 Assessment & Plan (1) Elevated LFTs: (2) Abdominal pain: Plan Patient has had no further pain and his LFTs are trending downwards. Possibly symptoms were related to a passed stone. Currently he is asymptomatic. He tells me that he is planned to be discharged to home and have cholecystectomy in the coming weeks with surgery. Supervising Physician Co-Signing Physician Notes Patient was discharged prior to my ability to evaluate the patient. History of Present Illness Reason for Consultation: choledocholithiasis Requesting Physician: Kenya Fajardo MD Attending Physician: Germán Edwards History of Present Illness Patient is a 69 year old male with a past medical history of DVT / PE, GERD, HTN, hyperlipidemia, hypothyroidism who presented to the [facility] on 11/28/24 for abdominal pain followed by white stool which had him concerned. Patient states that he had broken his leg earlier this year and subsequently developed a DVT/PE and placed on eliquis (last dose AM 11/28/24). Patient states that on 11/26 he went out to eat and ordered a larger portion than he normally had and afterwards developed abdominal pain and bloating. It continued until Friday 4am, when it fully resolved. Then he had a few white stools which were concerning for him. He has no other symptoms at this time and no further pain. No further white stools, but admits he has not had another bowel movement since admission. rest of GI ros are unremarkable. MRCP 11/28/24 1. Multiple gallstones with prominent wall thickness of the gallbladder measuring 4 mm. Gallbladder is mildly distended and wall thickness may be exaggerated. No pericholecystic fluid. No intrahepatic or extrahepatic ductal dilatation. 2. Difficulty appreciating well-defined tapering of the distal common duct without pancreatic mass or filling defect at this level. No discrete shouldering. Motion is limiting and this may be artifactual. Pancreatic duct is normal in caliber. 3. Likely benign renal cysts. Ultrasound would be helpful for further characterization. Please see above for details. CT AP 11/28/24 No acute finding in the abdomen or pelvis. Cholelithiasis. 11/28/24 T bili 3.2, AST 554, ALT 758, ALK 137 11/29/24 T bili 1.5, AST 246, ALT 495, ALK 115. Allergies Allergy/AdvReac Type Severity Reaction Status Date / Time lisinopril Allergy Mild Cough Verified 10/02/24 10:00 Home Medications Medication Instructions Recorded Confirmed Type potassium chloride 10 mEq 10 meq PO QAM 04/08/20 11/28/24 History tablet,extended release [id number] 150 mcg-vit K1 1 tab PO DAILY 09/20/24 11/28/24 History 30 mcg-lycop 300 mcg-lutein tablet (Centrum Minis Men 50 Plus) tirzepatide 15 mg/0.5 mL 15 mg subcut WK 09/20/24 11/28/24 History subcutaneous pen injector (Mounjaro) aspirin 81 mg tablet,delayed 81 mg PO QAM 10/02/24 11/28/24 History release bupropion HCl 150 mg 24 hr tablet, 150 mg PO QAM 10/02/24 11/28/24 History extended release hydrochlorothiazide 25 mg tablet 25 mg PO QAM 10/02/24 11/28/24 History levothyroxine 125 mcg tablet 125 mcg PO DAILYBB 10/02/24 11/28/24 History losartan 100 mg tablet 100 mg PO HS 10/02/24 11/28/24 History metoprolol succinate 50 mg 50 mg PO HS 10/02/24 11/28/24 History tablet,extended release 24 hr pravastatin 20 mg tablet 20 mg PO HS 10/02/24 11/28/24 History apixaban 5 mg (74 tabs) tablets in 5 mg PO BID #74 ea 10/04/24 11/28/24 Rx a dose pack (Eliquis) Patient History Medical History Cholelithiasis History of melanoma Diabetes mellitus History of pneumonia (2017) GERD (gastroesophageal reflux disease) Hypothyroidism Hypertension Hyperlipidemia AAA (abdominal aortic aneurysm) follows with cardio at [facility], has Abd duplex /US scheduled at [facility] october 28, 2024 - dr. lewis Hx of deep venous thrombosis (2016) traveled to lungs- admit to [facility]- no clots since Hx pulmonary embolism (2016) admit to [facility], no clots since Surgical History Hx of melanoma excision Hx of colonoscopy Hx of umbilical hernia repair Hx of bilateral hip replacements (2005) Social History Smoking Status: Never smoker Second Hand Exposure: No; Do You Dip or Chew Tobacco: No; Hx Alcohol Use: Yes Alcohol type: beer Hx Substance Use: No Preferred Language: Czech Communication Ability: Effective Hot Header Operator Required: No Beliefs That Will Affect Care: None marital status: Current Living Situation: Spouse current occupational status: employed Feels Safe at Home: Yes Assistive Devices: Cane Review of Systems Review of Systems: All systems reviewed & are unremarkable except as noted in HPI & below Physical Exam Constitutional: WD/WN, vitals as above Respiratory: normal respiratory effort, lungs clear to auscultation Cardiovascular: Rate/Rhythm: regular rate and regular rhythm Gastrointestinal (Abdomen): normal bowel sounds, soft, nontender, no hepatosplenomegaly Psychiatric: Orientation: alert and oriented x 3 Affect: euthymic affect Results & Data Vital Signs (Past 12 Hours) Vital Signs Temp Pulse Resp BP Pulse Ox O2 Del Method 11/29/24 08:07 97.7 F 74 16 132/74 95 Room Air Coding Level of Care Code 00000 INT INP/OBS CARE 2/55MIN Diagnoses Elevated LFTs R79.89 Abdominal pain R10.9
--- NOTE | 2024-11-29 10:16 | Surgery Progress Note ---
Date of Service November 29, 2024 Assessment & Plan (1) Cholelithiasis: Plan: -Patient with no clinical signs or symptoms of acute cholecystitis -LFTs downtrending this morning and Tbili 1.5 from 3.2 likely suggestive of passed gallstone . -Patient at this time states he is feeling well and would like to follow up with our general surgery office for elective cholecystectomy. Again, I discussed with the patient that since he does take Eliquis we will require him to be off this medication for a few days prior to cholecystectomy however this will be further discussed at his pre-operative visit. -Patient may have a diet this morning and if he tolerates from a surgical standpoint can be discharged Admission and Anticipated Discharge Date Admission Date: November 28, 2024 Subjective Patient doing well this morning. LFTs are downtrending and Tbili is 1.5 this AM Afebrile and WBC WNL Patient has no complaints of abdominal pain, nausea or vomiting at this time Physical Exam Constitutional: WD/WN, vitals as above Respiratory: normal respiratory effort, lungs clear to auscultation Cardiovascular: Rate/Rhythm: regular rate Gastrointestinal (Abdomen): Abdomen soft, nondistended, nontender to palpation. Skin: no rashes, warm and dry Results & Data Vital Signs (Past 12 Hours) Vital Signs Temp Pulse Resp BP Pulse Ox O2 Del Method 11/29/24 08:07 36.5 C 74 16 132/74 95 Room Air PG Care Time/CCT Total # of Minutes Spent Total Time Spent with Patient: Total time spent is greater than 50% in coordination of care (as documented) at patient's floor/unit and/or counseling patient: Coding [place] [address] SUB INP/OBS CARE 09/18MIN Patient Type Established History Problem Focused Exam Problem Focused Medical Decision Making Straight Forward Diagnoses Cholelithiasis K80.20
[2024-11-29 11:24] VITALS: BP 114/78; PULSE 73; TEMP 97.9; O2SAT 94
== END 2024-11-29 12:42 | disposition home or self-care (01) | DRG 444 ==
LOC: ED 13:10 → SUATTDRO 17:10 → 3N 17:10